=== PATIENT | female | born 1945 | race Caucasian/White ===

== ENCOUNTER 2017-11-20 15:33 | Emergency (ER) | payer MEDICARE, BC ==
--- NOTE | 2017-11-20 17:51 | UC ---
Respiratory Complaint HPI - HPI Summary HPI Summary: DEEP PRODUCTIVE COUGH X 3 DAYS. COMPLETED A 10 DAY COURSE OF CIPRO FOR BRONCHITIS PER PULMONOLOGY 1 WEEK AGO. PT HAS H/O BRONCHIECTASIS. FELT BETTER FOR A FEW DAYS BUT NOW FEELS SX ARE WORSENING AGAIN. PT CALLED HER POPPED [employer]N OV[employer] ATTENDANT DR. LOPEZ BUT NO RESPONSE. - History of Current Complaint Chief Complaint: UCRespiratory Stated Complaint: CHEST CONGESTION Time Seen by Provider: 11/20/17 17:32 Hx Obtained From: Patient Onset/Duration: Gradual Onset, Lasting Days, Still Present Timing: Constant Severity Initially: Moderate Severity Currently: Moderate Pain Intensity: 3 Pain Scale Used: 0-10 Numeric Character: Cough: Productive Aggravating Factors: Deep Breaths Alleviating Factors: Bronchodilator Associated Signs And Symptoms: Positive: Dyspnea, Pleuritic Chest Pain, Wheezing , URI. Negative: Fever - Allergies/Home Medications Allergies/Adverse Reactions: Allergies Allergy/AdvReac Type Severity Reaction Status Date / Time Penicillins Allergy Unknown Verified 11/20/17 15:53 Reaction Details Tetracycline Allergy Unknown Verified 11/20/17 15:53 Reaction Details Home Medications: Home Medications Apremilast (NF) [Otezla (NF)] 30 mg PO BID 11/20/17 [History Confirmed 11/20/17] Atorvastatin* [Lipitor 20 MG*] 20 mg PO 1700 11/20/17 [History Confirmed ] Escitalopram (NF) [Lexapro 20 mg (NF)] 30 mg PO DAILY 11/20/17 [History Confirmed 11/20/17] Fluticasone-Salmeterol 500-50* [Advair Diskus 500-50*] 1 puff INH BID 11/20/17 [ History Confirmed 11/20/17] Montelukast Sodium TAB* [Singulair 10 MG TAB*] 10 mg PO DAILY 11/20/17 [History Confirmed 11/20/17] Ondansetron TAB* [Zofran 4 MG Tab*] 4 mg PO Q6H PRN 11/20/17 [History Confirmed 11/20/17] Pantoprazole TAB (NF) [Protonix TAB (NF)] 40 mg PO DAILY 11/20/17 [History Confirmed 11/20/17] Potassium Chlor TAB* [Potassium Chlor TAB 20 MEQ*] 20 meq PO BID 11/20/17 [ History Confirmed 11/20/17] Primidone TAB(*) [Mysoline TAB(*)] 100 mg PO BID 11/20/17 [History Confirmed ] amLODIPine TAB* [Norvasc 5 mg TAB*] 5 mg PO DAILY 11/20/17 [History Confirmed ] clonazePAM TAB(*) [Klonopin TAB(*)] 0.5 mg PO TID PRN 11/20/17 [History Confirmed 11/20/17] PMH/Surg Hx/FS Hx/Imm Hx Cardiovascular History: Hypertension Respiratory History: COPD - BRONCHIECTASIS, Asthma - Surgical History Surgical History: Yes Surgery Procedure, Year, and Place: RT ROTATOR CUFF REPAIR 2001 OR 2002, LT HUMERUS RODDING 2001 OR 2002, HYSTERECTOMY 1985, 1985 COLON RESECTION FROM ENDOMETRIOSIS,cataract, bilateral eyelid liposuction, breast reduction 2013 - Family History Known Family History: Positive: Hypertension, Respiratory Disease - Social History Alcohol Use: Occasionally Substance Use Type: None Smoking Status (MU): Never Smoked Tobacco - Immunization History Most Recent Influenza Vaccination: fall 2014 Most Recent Tetanus Shot: up to date Most Recent Pneumonia Vaccination: up to date Review of Systems Constitutional: Negative Respiratory: Shortness Of Breath, Cough, Other - PLEURITIC PAIN Cardiovascular: Negative Gastrointestinal: Negative All Other Systems Reviewed And Are Negative: Yes Physical Exam Triage Information Reviewed: Yes Appearance: Well-Appearing, No Pain Distress, Well-Nourished Vital Signs: Initial Vital Signs Temp 97.2 F 11/20/17 15:54 Pulse 92 11/20/17 15:54 Resp 20 11/20/17 15:54 BP 137/62 11/20/17 15:54 Pulse Ox 96 11/20/17 15:54 Vital Signs Reviewed: Yes Eyes: Positive: Conjunctiva Clear ENT: Positive: Hearing grossly normal, Pharynx normal, TMs normal Neck: Positive: Supple, Nontender, No Lymphadenopathy Respiratory: Positive: No respiratory distress, No accessory muscle use, Decreased breath sounds, Wheezing - MILD INTERMITTENT DIFFUSE WHEEZE Cardiovascular Exam: Normal Abdomen Description: Positive: Soft Musculoskeletal: Positive: No Edema Neurological: Positive: Alert Psychological: Positive: Age Appropriate Behavior Skin: Negative: rashes UC Diagnostic Evaluation - Laboratory O2 Sat by Pulse Oximetry: 96 - Radiology Xray Interpretation: No Acute Changes - CXR Radiology Interpretation Completed By: Radiologist Respiratory Course/Dx - Differential Dx/Diagnosis Provider Diagnoses: ACUTE BRONCHITIS Discharge - Discharge Plan Condition: Stable Disposition: HOME Prescriptions: Cefdinir [Cefdinir 300 MG CAP] 300 mg PO BID #20 cap predniSONE TAB* [Deltasone TAB*] 50 mg PO DAILY #3 tab Patient Education Materials: Acute Bronchitis (ED), Bronchiectasis (ED) Referrals: Maranda Powell MD [Primary Care Provider] - If Needed Additional Instructions: CALL DR. LOPEZ TOMORROW TO ADVISE OF YOUR RECURRENT SYMPTOMS AND TREATMENT. GO TO THE ER WITHOUT FAIL IF YOU DEVELOP SHORTNESS OF BREATH, FEVER, WORSENING COUGH, PAIN OR ANY OTHER CONCERNING SYMPTOMS.
--- NOTE | 2017-11-20 18:17 | RAD ---
INDICATION: Cough. Pleuritic chest pain. COMPARISON: October 14, 2017 TECHNIQUE: PA and lateral dual-energy views were obtained. FINDINGS: Bones/Soft Tissues: There are no acute bony findings. Cardiomediastinal: The cardiomediastinal silhouette is normal. Lungs: There are no infiltrates. Pleura: There are no pleural effusions. Other: None IMPRESSION: NO ACTIVE DISEASE
[2017-11-20 18:48] VITALS: BP 144/90
== END 2017-11-20 18:49 | disposition home or self-care (01) ==
LOC: UCEAST 15:33
DX: J20.9 Acute bronchitis, unspecified (principal); I10 Essential (primary) hypertension; J44.9 Chronic obstructive pulmonary disease, unspecified; Z88.3 Allergy status to other anti-infective agents; Z88.0 Allergy status to penicillin
CPT/HCPCS: 71020; 99212; G0463

== ENCOUNTER 2018-01-10 14:50 | Emergency (ER) | payer MEDICARE, BC ==
[2018-01-10 18:10] VITALS: BP 121/58
--- NOTE | 2018-01-10 18:54 | UC ---
Respiratory Complaint HPI - HPI Summary HPI Summary: 72 yo WF c/o productive cough with yellow sputum and pleuritic CP x 4 days with 5 PNAs in the past, last one last year, which all started out with bronchitis - History of Current Complaint Chief Complaint: UCRespiratory Stated Complaint: COUGH Time Seen by Provider: 01/10/18 18:15 Onset/Duration: Gradual Onset Severity Initially: Moderate Pain Intensity: 0 - Allergies/Home Medications Allergies/Adverse Reactions: Allergies Allergy/AdvReac Type Severity Reaction Status Date / Time MS Penicillins [Penicillins] Allergy Unknown Verified 11/20/17 15:53 Reaction Details MS Tetracycline Allergy Unknown Verified 11/20/17 15:53 [Tetracycline] Reaction Details PMH/Surg Hx/FS Hx/Imm Hx - Surgical History Surgical History: Yes Surgery Procedure, Year, and Place: RT ROTATOR CUFF REPAIR 2001 OR 2002, LT HUMERUS RODDING 2001 OR 2002, HYSTERECTOMY 1985, 1985 COLON RESECTION FROM ENDOMETRIOSIS,cataract, bilateral eyelid liposuction, breast reduction 2013 - Family History Known Family History: Positive: Hypertension, Respiratory Disease - Social History Alcohol Use: Occasionally Substance Use Type: None Smoking Status (MU): Never Smoked Tobacco - Immunization History Most Recent Influenza Vaccination: fall 2014 Most Recent Tetanus Shot: up to date Most Recent Pneumonia Vaccination: up to date Review of Systems Constitutional: Negative Skin: Negative Eyes: Negative ENT: Negative Respiratory: Cough, Other - pleuritic CP, yellow sputum Cardiovascular: Negative Gastrointestinal: Negative Genitourinary: Negative Motor: Negative Neurovascular: Negative Musculoskeletal: Negative Neurological: Negative Psychological: Negative Is Patient Immunocompromised?: No All Other Systems Reviewed And Are Negative: Yes Physical Exam Triage Information Reviewed: Yes Vital Signs: Initial Vital Signs Temp 37.1 C 01/10/18 15:06 Pulse 81 01/10/18 15:06 Resp 18 01/10/18 15:06 BP 132/79 01/10/18 15:06 Pulse Ox 98 01/10/18 15:06 Eye Exam: Normal ENT: Positive: Pharynx normal Dental Exam: Normal Neck exam: Normal Respiratory: Positive: Rhonchi Cardiovascular Exam: Normal Abdominal Exam: Normal Musculoskeletal Exam: Normal Neurological Exam: Normal Psychological Exam: Normal Skin Exam: Normal UC Diagnostic Evaluation - Laboratory O2 Sat by Pulse Oximetry: 97 Respiratory Course/Dx - Course Course Of Treatment: Pt has h/o multiple PNA and with h/o asthma will prescribe abx to prevent recurrent PNA but advised to wait to take abx for the body to have a chance to get over viral bronchitis. Pt has h/o HTN and is on antiHTN meds - Differential Dx/Diagnosis Provider Diagnoses: Bronchitis Discharge - Discharge Plan Condition: Stable Disposition: HOME Prescriptions: Azithromycin TAB* [Zithromax TAB (Z-AR) 250 mg #6 tabs] 2 tab PO .TODAY, THEN 1 DAILY #1 ar Patient Education Materials: Acute Bronchitis (ED) Referrals: Maranda Powell MD [Primary Care Provider] - Additional Instructions: as tolerated, Please WAIT to take the antibiotic for 3 days or if symptoms worsen
--- NOTE | 2018-01-10 19:00 | UC ---
Respiratory Complaint HPI - HPI Summary HPI Summary: 72 yo WF h/o asthma c/o productive cough with yellow sputum and pleuritic CP associated with low grade fevers x 4 days with 5 PNAs in the past, last one last year, which all started out with bronchitis. - History of Current Complaint Chief Complaint: UCRespiratory Stated Complaint: COUGH Time Seen by Provider: 01/10/18 18:15 Pain Intensity: 0 - Allergies/Home Medications Allergies/Adverse Reactions: Allergies Allergy/AdvReac Type Severity Reaction Status Date / Time MS Penicillins [Penicillins] Allergy Unknown Verified 11/20/17 15:53 Reaction Details MS Tetracycline Allergy Unknown Verified 11/20/17 15:53 [Tetracycline] Reaction Details PMH/Surg Hx/FS Hx/Imm Hx - Additional Past Medical History Additional PMH: Multiple pneumonias Previously Healthy: Yes Cardiovascular History: Hypertension Respiratory History: Asthma Other Respiratory History: Multiple PNAs Psychological History: Depression - Surgical History Surgical History: Yes Surgery Procedure, Year, and Place: RT ROTATOR CUFF REPAIR 2001 OR 2002, LT HUMERUS RODDING 2001 OR 2002, HYSTERECTOMY 1985, 1985 COLON RESECTION FROM ENDOMETRIOSIS,cataract, bilateral eyelid liposuction, breast reduction 2013 - Family History Known Family History: Positive: Hypertension, Respiratory Disease - Social History Alcohol Use: Occasionally Substance Use Type: None Smoking Status (MU): Never Smoked Tobacco - Immunization History Most Recent Influenza Vaccination: fall 2014 Most Recent Tetanus Shot: up to date Most Recent Pneumonia Vaccination: up to date Review of Systems Constitutional: Fever Skin: Negative Eyes: Negative ENT: Negative Respiratory: Cough Cardiovascular: Negative Gastrointestinal: Negative Genitourinary: Negative Motor: Negative Neurovascular: Negative Musculoskeletal: Negative Neurological: Negative Psychological: Negative All Other Systems Reviewed And Are Negative: Yes Physical Exam Triage Information Reviewed: Yes Appearance: No Pain Distress Vital Signs: Initial Vital Signs Temp 37.1 C 01/10/18 15:06 Pulse 81 01/10/18 15:06 Resp 18 01/10/18 15:06 BP 132/79 01/10/18 15:06 Pulse Ox 98 01/10/18 15:06 Eye Exam: Normal ENT Exam: Normal Dental Exam: Normal Neck exam: Normal Neck: Positive: 1 Respiratory: Positive: Rhonchi, Expiration, Inspiration. Negative: Accessory muscle use, Stridor, Wheezing Cardiovascular Exam: Normal Abdominal Exam: Normal Musculoskeletal Exam: Normal Neurological Exam: Normal Psychological Exam: Normal Skin Exam: Normal UC Diagnostic Evaluation - Laboratory O2 Sat by Pulse Oximetry: 97 Respiratory Course/Dx - Course Course Of Treatment: Pt has h/o multiple PNA and with h/o asthma will prescribe abx to prevent recurrent PNA but advised to wait to take abx for the body to have a chance to get over viral bronchitis - Differential Dx/Diagnosis Provider Diagnoses: Bronchitis Discharge - Discharge Plan Condition: Stable Disposition: HOME Prescriptions: Azithromycin TAB* [Zithromax TAB (Z-RA) 250 mg #6 tabs] 2 tab PO .TODAY, THEN 1 DAILY #1 ar Patient Education Materials: Acute Bronchitis (ED) Referrals: Maranda Powell MD [Primary Care Provider] - Additional Instructions: as tolerated, Please WAIT to take the antibiotic for 3 days or if symptoms worsen
== END 2018-01-10 19:00 | disposition home or self-care (01) ==
LOC: UCEAST 14:50
DX: J45.909 Unspecified asthma, uncomplicated (principal); I10 Essential (primary) hypertension; F32.9 Major depressive disorder, single episode, unspecified; Z90.710 Acquired absence of both cervix and uterus; Z88.1 Allergy status to other antibiotic agents; Z88.0 Allergy status to penicillin
CPT/HCPCS: 99212; G0463

== ENCOUNTER → 2018-08-13 00:21 | Emergency (ER) | payer MEDICARE, BC ==
[~2018-08-13 00:21] MED LIST: Levofloxacin TAB* 250 MG PO ONE
[2018-08-13 01:32] LABS: ABS Basophils 0.1 10^3/ul (0-0.2); ABS Eosinophils 0.2 10^3/ul (0-0.6); ABS Lymphocytes 2.2 10^3/ul (1.0-4.8); ABS Monocytes 0.6 10^3/ul (0-0.8); ABS Neutrophils 7.2 10^3/ul (1.5-7.7); ABS Nucleated RBC 0 10^3/ul; Eosinophil % 1.6 % (0-6); Hematocrit 40 % (35-47); Hemoglobin 13.6 g/dl (12.0-16.0); Lymphocyte % 21.9 % (25-47); Mean Corpuscular HGB Conc 34 g/dl (31-36); Mean Corpuscular Hemoglobin 28 pg (27-31); Mean Corpuscular Volume 84 fL (80-97); Mean Platelet Volume 7.6 um3 (7.4-10.4); Nucleated Red Blood Cells % 0; Platelet Count 308 10^3/ul (150-450); Red Cell Distribution Width 14 % (10.5-15); White Blood Count 10.2 10^3/ul (3.5-10.8)
[2018-08-13 01:51] LABS: EGFR Non-African American 69.1 (>60)
--- NOTE | 2018-08-13 02:13 | ED ---
Skin Complaint - HPI Summary HPI Summary: Patient complains of redness and warmth to anterior left huddleston starting tonight. Denies pain or swelling, trauma, fever, N/V, cough, sore throat, CP, SOB, N/V/ D, abdominal pain, change in urine, change in BM. Medical history as psoriasis. Nonsmoker. - History of Current Complaint Chief Complaint: EDExtremityLower Time Seen by Provider: 08/13/18 00:35 Stated Complaint: LT LEG PAIN Hx Obtained From: Patient Onset/Duration: Started Hours Ago Skin Exposure Onset/Duration: Hours Ago Timing: Constant Onset Severity: Moderate Current Severity: Moderate Pain Intensity: 4 Pain Scale Used: 0-10 Numeric Skin Location: Discrete, Leg Aggravating Symptom(s): Nothing Alleviating Symptom(s): Nothing Associated Signs & Symptoms: Negative - Additional Pertinent History Primary Care Physician: ERIC - Allergy/Home Medications Allergies/Adverse Reactions: Allergies Allergy/AdvReac Type Severity Reaction Status Date / Time Penicillins Allergy Unknown Verified 08/13/18 00:26 Reaction Details tetracycline Allergy Unknown Verified 08/13/18 00:26 Reaction Details PMH/Surg Hx/FS Hx/Imm Hx Endocrine/Hematology History: Denies: Hx Anticoagulant Therapy Cardiovascular History: Reports: Hx Hypercholesterolemia, Hx Hypertension, Other Cardiovascular Problems/Disorders - PNEUMONIA Denies: Hx Angina, Hx Pacemaker/ICD Respiratory History: Reports: Hx Asthma, Hx Chronic Obstructive Pulmonary Disease (COPD), Hx Pneumonia - recurrent, Other Respiratory Problems/Disorders - HX OF PNEUMONIA NUMEROUS TIMES, NONE IN 10+ YEARS AGO GI History: Reports: Hx Gastroesophageal Reflux Disease History: Reports: Other Problems/Disorders - HISTORY OF UTI'S Musculoskeletal History: Reports: Hx Arthritis - SPINE, Hx Bursitis Sensory History: Reports: Hx Contacts or Glasses - reading Denies: Hx Hearing Aid Opthamlomology History: Reports: Hx Contacts or Glasses - reading Neurological History: Reports: Hx Headaches, Hx Migraine, 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 Psychiatric History: Reports: Hx Anxiety, Hx Depression Denies: Hx Panic Disorder - Cancer History Cancer Type, Location and Year: SKIN CANCER Hx Chemotherapy: No Hx Radiation Therapy: No - Surgical History Surgery Procedure, Year, and Place: RT ROTATOR CUFF REPAIR 2001 OR 2002, LT HUMERUS RODDING 2001 OR 2002, HYSTERECTOMY 1985, 1985 COLON RESECTION FROM ENDOMETRIOSIS,cataract, bilateral eyelid liposuction, breast reduction 2014 Hx Anesthesia Reactions: Yes - N/V Infectious Disease History: No Infectious Disease History: Denies: Hx Clostridium Difficile, Hx Hepatitis, Hx Human Immunodeficiency Virus (HIV), Hx of Known/Suspected MRSA, Hx Shingles, Hx Tuberculosis, Hx Known/ Suspected VRE, Hx Known/Suspected VRSA, History Other Infectious Disease, Traveled Outside the [place] in Last 30 Days - Family History Known Family History: Positive: Hypertension, Respiratory Disease - Social History Alcohol Use: Occasionally Substance Use Type: Reports: None Hx Tobacco Use: No Smoking Status (MU): Never Smoked Tobacco Review of Systems Constitutional: Negative Eyes: Negative ENT: Negative Cardiovascular: Negative Respiratory: Negative Gastrointestinal: Negative Genitourinary: Negative Musculoskeletal: Negative Skin: Other Neurological: Negative Psychological: Normal All Other Systems Reviewed And Are Negative: Yes Physical Exam - Summary Physical Exam Summary: Warmth and redness to anterior left huddl[place]. No obvious wound or trauma. Calf soft nontender. PMS intact distally. Triage Information Reviewed: Yes Vital Signs On Initial Exam: Initial Vitals Temp Pulse Resp BP Pulse Ox 97.4 F 87 16 167/87 97 08/13/18 00:22 08/13/18 00:22 08/13/18 00:22 08/13/18 00:22 08/13/18 00:22 Vital Signs Reviewed: Yes Appearance: Positive: Well-Appearing Skin: Positive: Warm Head/Face: Positive: Normal Head/Face Inspection Eyes: Positive: Normal Neck: Positive: Supple Respiratory/Lung Sounds: Positive: Clear to Auscultation Cardiovascular: Positive: Normal Abdomen Description: Positive: Nontender Musculoskeletal: Positive: Normal Neurological: Positive: Normal Psychiatric: Positive: Normal AVPU Assessment: Alert - Odin Coma Scale Best Eye Response: 4 - Spontaneous Best Motor Response: 6 - Obeys Commands Best Verbal Response: 5 - Oriented Coma Scale Total: 15 Diagnostics - Vital Signs Vital Signs Temp Pulse Resp BP Pulse Ox 08/13/18 00:22 97.4 F 87 16 167/87 97 - Laboratory Lab Results: Lab Results 08/13/18 08/13/18 Range/Units 01:10 01:10 WBC 10.2 (3.5-10.8) 10^3/ul RBC 4.80 (4.00-5.40) 10^6/ul Hgb 13.6 (12.0-16.0) g/dl Hct 40 (35-47) % MCV 84 (80-97) fL MCH 28 (27-31) pg MCHC 34 (31-36) g/dl RDW 14 (10.5-15) % Plt Count 308 (150-450) 10^3/ul MPV 7.6 (7.4-10.4) um3 Neut % (Auto) 70.4 (38-83) % Lymph % (Auto) 21.9 L (25-47) % [place] % (Auto) 5.4 (0-7) % Eos % (Auto) 1.6 (0-6) % Baso % (Auto) 0.7 (0-2) % Absolute Neuts (auto) 7.2 (1.5-7.7) 10^3/ul Absolute Lymphs (auto) 2.2 (1.0-4.8) 10^3/ul Absolute Monos (auto) 0.6 (0-0.8) 10^3/ul Absolute Eos (auto) 0.2 (0-0.6) 10^3/ul Absolute Basos (auto) 0.1 (0-0.2) 10^3/ul Absolute Nucleated RBC 0 10^3/ul Nucleated RBC % 0 Sodium 135 (135-145) mmol/L Potassium 2.9 L (3.5-5.0) mmol/L Chloride 99 L (101-111) mmol/L Carbon Dioxide 27 (22-32) mmol/L Anion Gap 9 (2-11) mmol/L BUN 11 (6-24) mg/dL Creatinine 0.81 (0.51-0.95) mg/dL Est GFR ( Amer) 83.6 (>60) Est GFR (Non-Af Amer) 69.1 (>60) BUN/Creatinine Ratio 13.6 (8-20) Glucose 111 H (70-100) mg/dL Calcium 9.2 (8.6-10.3) mg/dL Total Bilirubin 0.50 (0.2-1.0) mg/dL AST 12 L (13-39) U/L ALT 13 (7-52) U/L Alkaline Phosphatase 76 (34-104) U/L C-Reactive Protein 2.55 (<8.01) mg/L Total Protein 6.7 (6.4-8.9) g/dL Albumin 4.1 (3.2-5.2) g/dL Globulin 2.6 (2-4) g/dL Albumin/Globulin Ratio 1.6 (1-3) Result Diagrams: 08/13/18 01:10 08/13/18 01:10 Lab Statement: Any lab studies that have been ordered have been reviewed, and results considered in the medical decision making process. Course/Dx - Course Course Of Treatment: Patient complains of redness and warmth to anterior left huddl[place] starting tonight. Denies pain or swelling, trauma, fever, N/V, cough, sore throat, CP, SOB, N/V/D, abdominal pain, change in urine, change in BM. Medical history as psoriasis. Nonsmoker. Physical exam:Warmth and redness to anterior left huddl[place]. No obvious wound or trauma. Calf soft nontender. PMS intact distally. Vital signs unremarkable. Labs unremarkable. Patient started here on Levaquin 750 mg by mouth. Rx for Levaquin 750 mg by mouth daily 7 days. - Diagnoses Provider Diagnoses: Cellulitis Discharge - Sign-Out/Discharge Documenting (check all that apply): Patient Departure - Discharge Plan Condition: Stable Disposition: HOME Prescriptions: Levofloxacin TAB* [Levaquin TAB*] 750 mg PO DAILY 7 Days #7 tab Patient Education Materials: Cellulitis (ED) Referrals: Maranda Powell MD [Primary Care Provider] - Additional Instructions: Take antibiotics as directed. Return to the ED for any new or worsening symptoms - Billing Disposition and Condition Condition: STABLE Disposition: Home
[2018-08-13 02:32] VITALS: BP 154/87
== END | disposition home or self-care (01) ==
LOC: ED 00:21
DX: L03.90 Cellulitis, unspecified (principal); Z86.79 Personal history of other diseases of the circulatory system
CPT/HCPCS: 36415; 80053; 85025; 86140; 87040; 99282; A9270-GY

== ENCOUNTER 2019-04-29 14:53 | Emergency (ER) | payer MEDICARE, BC ==
--- OUTSIDE RECORDS SUMMARY | 2019-04-29 15:37 | XMS REPORT | Continuity of Care Document ---
:1945 External Reference #:[id number] Author Name Sylwia Marylou Care Team Providers Name Role Phone Maranda Powell MD Primary Care Physician Unavailable Payers Date Identification Numbers Payment Provider Subscriber Effective: 2012 Policy Number: [id number] Medicare Samanta Velásquez PayID: [id number] [address] [place] [address] Effective: 2011 Policy Number: [id number] BS [employer]ets Samanta Velásquez PayID: [id number] [address] [address] [place] [address] Problems Active Problems Provider Date Essential hypertension Elyse Sagastume N.P. 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 Onset: 04/04/2015 Migraine Marta Kim M.D. Onset: 04/04/2015 Disturbance in sleep behavior Teresa Cano MD Onset: 01/09/2016 Obstructive sleep apnea syndrome Teresa Cano MD Onset: 02/27/2016 Obesity Teresa Cano MD Onset: 02/27/2016 Family History Date Family Member(s) Observation Comments : (age 64 Father due to MS Years) Father MS Father : (age 79 Mother due to Vascular Years) Disease Mother Emphysema Mother Pad Mother Brain tumorsx2 Mother , age 79 Siblings 1 1 Brother - Prostate Cancer, Bronchitis Age 79 First Brother 71 as of 05/24/2011 First Brother Cancer, Prostate First Brother Hypertension : (age 19 Second Brother due to Homicide Years) Social History Type Date Description Comments Sex Unknown Marital Status Single Lives With Alone 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 ETOH Use Rarely consumes 2 beers per month alcohol Tobacco Use Start: Unknown Patient has never smoked Recreational Drug Use Denies Drug Use Smoking Status Reviewed: 04/22/19 Patient has never smoked Exercise Type/Frequency Exercises regularly Exercise Type/Frequency Walks 3 times a week Allergies, Adverse Reactions, Alerts Active Allergies Reaction Severity Comments Date Cipro RASH 01/05/2010 Penicillin RASH 01/05/2010 Tetracycline 01/05/2010 Medications Active Medications SIG Qnty Indications Ordering Date Provider Ciprofloxacin HCL 1 tab daily for 7 7tabs J47.1 Teresa Cano, 04/22/2019 750mg days MD Tablets Prednisone 30mg daily for 1 42tabs J47.1 Teresa Cano, 04/22/2019 10mg Tablets week, 20mg daily MD for 1 week, 10 mg daily for 1 week Montelukast Sodium Take One Tablet By 90tabs J47.9 Teresa Cano, 2018 10mg Mouth Every Day MD Tablets Potassium Chloride Take One Tablet By 270tabs Elyse Sagastume, 12/06/2018 Maribel ER Mouth Three Times N.P. 20Meq Tablets A Day ER Amlodipine Besylate 1 by mouth every 90tabs Elyse Sagastume, 10/15/2018 day N.P. 10mg Tablets Losartan Potassium 1 by mouth every 90tabs Elyse Tanika, 08/18/2018 day N.P. 100mg Tablets Ondansetron HCL one by mouth every 30tabs R11.0 Elyse Sagastume, 08/14/2018 4mg 8 hours as needed N.P. Tablets for nausea Albuterol Sulfate 1 unit, nebl, 225ml Teresa Cano, 10/14/2017 every 6 hours, as MD 0.63mg/3ML Nebulizer needed Escitalopram Oxalate take one tablet by 30tabs F32.89 Elyse Sagastume, 04/18 mouth every day N.P. 20mg Tablets Combivent Respimat Inhale One puff By 4unsal Low 05/23/2016 Mouth Four Times A Cotton, M.D. 20-100mcg/Act Aerosol Day as Needed Flutter use as instructed 1unsal J47.9 Teresa Cano, 12/07/2015 Device twice a day Clonazepam Take 1 Or 1+1/2 45tabs Elyse Sagastume, 12/01/2015 0.5mg Tablet By Mouth AT N.P. Tablets Bedtime Maximum Daily Dose=1 & 1/2 Tablets Advair Diskus 1 puff puff twice 60units J47.9 Elyse Sagastume, 12/27/2014 a day N.P. 500-50mcg/Dose Aerosol Atorvastatin Calcium Take One Tablet By 90tabs Z00.01 Elyse Sagastume, 11/10 Mouth Every Day N.P. 20mg Tablets Klor-Con M20 Take One Tablet By 270tabs Elyse Sagastume, 03/11/2013 20Meq Mouth Three Times N.P. Tablets ER A Day Primidone take two tablets 360tabs Marta Kim, 01/06/2013 50mg Tablets by mouth twice a M.D. day Pantoprazole Sodium take one tablet by 90tabs Elyse Sagastume, 04/30/2011 mouth every day N.P. 40mg Tablets Spironolactone Take One Tablet By 90tabs Elyse Sagastume, 04/21/2010 25mg Mouth Every Day N.P. Tablets Amonium Lactate Unknown Clobetasol Propionate Apply Topically Unknown Two Times A Day To 0.05% Ointment Lower Legs For 3 Weeks Otezla 1 by mouth twice a [facility], 30mg Tablets day MD Gina Calcium 600 1 po qd 60tabs Unknown 600mg Tablets Multivitamins 1 capsule jenifer;y 30caps Unknown Capsules Fish Oil 1 po qd 90caps Unknown 1200mg Capsules Vit D 1 tab po daily Unknown 2000Iu Estrace 1 application two 42.500gm Unknown 0.1mg/GM Cream times weekly History Medications Levofloxacin 1 by mouth every 14tabs J47.1 Teresa Cano, 10/21/2018 - 750mg day MD 12/24/2018 Tablets Prednisone 4 tabs day#1, 3 21units J47.1 Teresa Cano, 10/21/2018 - 10mg (21) tabs day#2, 2 MD 12/24/2018 TBPK tabs day#3, 1 tab for 7 days Prednisone 4 tabs by mouth 20tabs Elyse Sagastume, 10/15/2018 - 10mg Tablets days 1-2; 3 tabs N.P. Unknown by mouth on days 3-4, 2 tabs by mouth on days 5-6, 1 tab by mouth days 7-8 Levofloxacin 1 by mouth every 5tabs R05 Elyse Sagastume, 10/15/2018 - 750mg day for 5 days N.P. 10/20/2018 Tablets Sulfamethoxazole/Trim one by mouth 20tabs L03.116 Elyse Sagastume, 2017 - ethoprim DS twice a day for N.P. 10/02/2018 800-160mg 10 days Tablets Levofloxacin One po daily for 10tabs J47.1 Elyse Sagastume, 03/05/2018 - 750mg 10 days. N.P. 03/15/2018 Tablets Levofloxacin 1 by mouth every 5tabs R05 Maranda 01/22/2018 - 750mg day for 5 days Onel Powell 01/27/2018 Tablets Benzonatate take 1 capsule by 30caps Elyse Sagastume, 11/21/2017 - 200mg mouth three times N.P. 12/24/2018 Capsules a day as needed for cough Prednisone 4 tabs by mouth 20tabs Maranda 11/21/2017 - 10mg Tablets days 1-2; 3 tabs Onel Powell 11/28/2017 by mouth on days 3-4, 2 tabs by mouth on days 5-6, 1 tab by mouth days 7-8 Prednisone 30mg daily for 1 30tabs J47.1 Elyse Sagastume, 10/14/2017 - 10mg Tablets week, 20mg daily N.P. 10/28/2017 for 1 week, 10 mg daily for 1 week Levofloxacin 1 by mouth for 10 10tabs J47.1 Teresa Cano, 10/14/2017 - 750mg days 10/24/2017 Tablets Amlodipine Besylate take one tablet 90tabs Elyse Sagastume, 12/12/2016 - 5mg by mouth every N.P. 10/15/2018 Tablets day Levaquin 1 by mouth daily 10tabs J20.9 Elyse Sagastume, 08/22/2016 - 500mg Tablets for 10 days N.P. 09/01/2016 Medrol 6 by mouth day 1 21units J20.9 Elyse Sagastume, 08/22/2016 - 4mg TBPK 5 by mouth day 2 N.P. 08/28/2016 4 by mouth day 3 3 by mouth day 4 2 by mouth day 5 1 by mouth day 6 Fluticasone 2 sprays each 16units J20.9 Elyse Sagastume, 08/22/2016 - Propionate nostril daily as N.P. 09/05/2016 50mcg/Act needed Suspension Levofloxacin one by mouth 10tabs J20.9 Surjit Mead NP 06/15/2016 - 500mg daily for 10 days 06/25/2016 Tablets Cheratussin ac 2 teaspoons by 120ml J20.9 Surjit Mead NP 05/23/2016 - mouth every 4 05/30/2016 100-10mg/5ML Syrup hours as needed Azithromycin 2 tabs by mouth 6tabs J20.9 Surjti Mead NP 05/23/2016 - 250mg every day x1 day, 05/30/2016 Tablets 1 tab by mouth every day x 4 days Combivent Respimat 1 puffs 4-6 times 30units Surjit Mead NP 05/23/2016 - daily as needed 05/23/2016 14.7-100 Aerosol Xanax one by mouth up 20tabs F41.9 Elyse Sagastume, 05/07/2016 - 0.25mg Tablets to two times N.P. 12/24/2018 daily as needed for anxiety Amlodipine Besylate 1 by mouth every 30tabs Elyse Sagastume, 04/10/2016 - day N.P. 12/12/2016 10mg Tablets Azithromycin two tabs day one, 6tabs J20.9 Elyse Varn, 04/04/2016 - 250mg one daily till N.P. 04/14/2016 Tablets gone Prednisone 4 tablets by 43tabs J20.9 Elyse Varn, 04/04/2016 - 10mg Tablets mouth for 4 days N.P. 04/20/2016 3 tablets by mouth for 4 days 2 tablets by mouth for 4 days 1 tablet by mouth for 4 days Cheratussin ac 2 teaspoons by 120ml J20.9 Elyse Varn, 04/04/2016 - mouth every 4 N.P. 04/18/2016 100-10mg/5ML Syrup hours as needed Amlodipine Besylate 1 by mouth every 30tabs I10 Elyse Sagastume, 04/04/2016 - day N.P. 04/10/2016 10mg Tablets Cyclobenzaprine HCL take one tablet 90tabs Elyse Sagastume, 01/02/2016 - by mouth every 8 N.P. 12/24/2018 10mg Tablets hours as needed for muscle spasms Singulair Take One Tablet 90tabs J47.9 Teresa Rachael, 12/07/2015 - 10mg Tablets By Mouth Every MD 12/29/2018 Day Singulair 1 tab by mouth 90tabs 477.2 Daniel Peñaloza M.D. 04/28/2015 - 10mg Tablets every day every 12/07/2015 night Tramadol HCL 1 tablet three to 30tabs Maranda 03/31/2015 - 50mg four times daily Onel Powell 12/14/2015 Tablets as needed Escitalopram Oxalate take 1 tablets by 45tabs Maranda 11/10/2014 - mouth daily Onel Powell 03/17/2017 20mg Tablets Nystatin 4-6 milliliters 250ml 112.0 Surjit Mead NP 10/06/2014 - 360884Emep/ML q6 hours swish 10/13/2014 Suspension and swallow as needed for thrush for 10 days. Levaquin 1 by mouth every 10tabs Elyse Sagastume, 09/02/2014 - 500mg Tablets day x 10 days (Pt N.P. 09/07/2014 states she is almost done with them. 09/01/14) Prednisone 5 mg as directed 40tabs 494.1 Vicenta Cui, 09/02/2014 - 10mg Tablets M.D., FACP 09/07/2014 Levaquin 1 by mouth daily 10tabs 494.1 Elyse Sagastume, 08/23/2014 - 500mg Tablets for 10 days N.P. 08/28/2014 Clonazepam 1 by mouth twice 60tabs Maradna 08/23/2014 - 1mg Tablets a day Onel Powell 12/01/2015 Depakote take one tablet 90tabs Marta Kim, 08/12/2014 - 500mg Tablets by mouth at M.D. 04/21/2018 DR bedtime Metaxalone take 1 tablet 3 30tabs Elyse Tanika, 05/26/2014 - 800mg times a day as N.P. 06/25/2014 Tablets needed Levaquin one by mouth 5tabs 494.0 Vicenta Cui, 04/28/2014 - 250mg Tablets daily for 5 days M.D., FACP 05/03/2014 Ergocalciferol 1 cap by mouth 8caps 268.9 Vicenta Cui, 01/12/2014 - every week M.D., FACP 02/18/2014 53139Qqyx Capsules Levaquin one by mouth 5tabs 494.1 Vicenta Cui, 11/10/2013 - 250mg Tablets daily for 5 days M.D., FACP 01/18/2014 Azithromycin every other day 45tabs 494.1 Elyse Tanika, 08/13/2013 - 250mg N.P. 09/07/2014 Tablets Levofloxacin po qd 14tabs 494.1 Zakia Lindsey, 07/31/2013 - 750mg M.D. 08/13/2013 Tablets Levofloxacin po qd 7tabs 494.1 Sheldon Gallegos 07/21/2013 - 750mg Onel Constantino,FACP 07/31/2013 Tablets Cheratussin ac 10 ml po qid prn 200ml 494.1 Zakia Lindsey, 07/21/2013 - M.DStephany 02/18/2014 100-10mg/5ML Syrup Clarithromycin 1 po bid for 30tabs Sheldon Gallegos 07/21/2013 - 500mg 2weeks/month Onel Constantino,FACP 08/13/2013 Tablets Amlodipine Besylate take one tablet 90tabs I10 Elyse Tanika, 06/23/2013 - 5mg by mouth every N.P. 04/04/2016 Tablets day Folic Acid take one tablet 90tabs Vicenta Cui, 03/23/2013 - 1mg Tablets by mouth every M.D., FACP 04/03/2015 day Amlodipine Besylate 1 po qd 90tabs 401.1 Vicenta Cui, 01/06/2013 - M.D., FACP 06/23/2013 2.5mg Tablets Depakote ER take 1 by mouth 90tabs Elyse Suarezcici, 12/18/2012 - 250mg every night at N.P. 08/12/2014 Tablets ER 24HR bedtime Mysoline take 2 po qpm 180tabs Marta Kim, 10/15/2012 - 50mg Tablets M.D. 03/11/2013 Nystatin 4 ml qid, swish 16oz Vicenta Cui, 08/15/2012 - 630578Mdnf/ML and swallow for M.D., FACP 11/05/2012 Suspension 14 days Triamcinolone apply bid until 30gm 782.1 Vicenta Cui, 05/14/2012 - Acetonide clear M.D., [facility] 10/02/2014 0.1% Cream Nystatin 4 ml qid, swish 16oz Vicenta Cui, 01/01/2012 - 690279Laqq/ML and swallow for M.D., [facility] 05/14/2012 Suspension 14 days Singulair 1 by mouth every 90tabs Maranda 12/31/2011 - 10mg Tablets day Cotton, M.D. 12/07/2015 Levaquin 1 po daily for 10 10tabs 466.0 Vicenta Cui, 12/31/2011 - 500mg Tablets days M.D., FACP 01/10/2012 Prednisone 5 mg as directed 40tabs 466.0 Vicenta Cui, 12/31/2011 - 10mg Tablets M.D., FACP 11/05/2012 Thera Cane Use as Directed 1units Vicenta Cui, 12/06/2011 - dx: Muscle Spasms M.D., FACP 01/06/2013 Fluconazole one by mouth 5tabs Vicenta Cui, 11/22/2011 - 150mg daily for 5 days M.D., FACP 12/31/2011 Tablets Folic Acid Take One Tablet 90tabs Vicenta Cui, 09/11/2011 - 1mg Tablets By Mouth Every M.D., FACP 11/05/2012 Day Hydrocodone/Acetamino 1-2 tabs by mouth 30tabs 728.85 Vicenta Cui, 2010 - phen every 6 hours as M.D., FACP 11/05/2012 5-325mg Tablets needed Sulfamethoxazole/Trim 1 by mouth bid 6tabs 788.1 Vicenta Cui, 07/26/2011 - ethoprim DS prn M.D., FACP 10/19/2013 800-160mg Tablets Phenazopyridine HCL 1 tab by mouth 10tabs 788.1 Vicenta Cui, 07/26/2011 - three times a day M.D., FACP 11/05/2012 200mg Tablets as needed Ergocalciferol 1 cap by mouth 8caps 269.2 Vicenta Cui, 07/25/2011 - every week M.D., FACP 11/05/2012 [id number] Capsules Tramadol Take 1 To 2 60tabs Vicenta Cui, 03/05/2011 - Hydrochloride/Acetami Tablets By Mouth M.D., FACP 01/06/2013 nophen Daily AT Bedtime 37.5-325mg as Needed Tablets Losartan Take One Tablet 90tabs Elyse Tanika, 08/29/2010 - Potassium/Hydrochloro By Mouth Every N.P. 08/18/2018 thiazide Day 100-25mg Tablets Advair Diskus 1 puff po bid Vicenta Cui, 06/22/2010 - M.D., FACP 04/15/2013 500-50mcg/Dose Aerosol Bactrim DS 1 qd prn 6tabs Vicenta Cui, 05/30/2010 - 800-160mg M.D., FACP 06/20/2010 Tablets Lipitor take one tablet 90tabs V70.0 Elyse Suarezcici, 04/21/2010 - 20mg Tablets by mouth once N.P. 11/10/2014 daily at bedtime Folate 1 Tab PO qd 90units Vicenta Cui, 04/21/2010 - 1mg M.D., FACP 11/05/2012 Protonix 1 po qd prn Vicenta Cui, 04/21/2010 - 40mg M.D., FACP 04/30/2011 Klor-Con 1 tab three times 270units Vicenta Cui, 04/21/2010 - 20Meq Packet a day M.D., FACP 03/11/2013 Hyzaar 1 Tab PO qd Vicenta Cui, 04/21/2010 - 100/25 M.D., FACP 08/29/2010 Aspir-81 1 po qd 30tabs Unknown - 81mg Tablets 10/19/2013 Triazolam one pill po hs Unknown - 0.25mg prn for sleep 07/21/2013 Tablets Montelukast Sodium 1 po qd 90tabs Unknown - 10mg 04/15/2013 Tablets Atorvastatin Calcium take 1 tablet at 90tabs Unknown - bedtime 07/21/2013 20mg Tablets Modafinil 1 po daily Unknown - 200mg Tablets 04/15/2013 Clobetasol Propionate apply twice daily 30gm Unknown - E for up to 2 10/15/2018 0.05% Cream weeks, stay off for 2 weeks then repeat prn Advair Diskus 1 puff by mouth 3units Elyse Varn, - twice a day N.P. 12/27/2014 500-50mcg/Dose Aerosol Cyclomyacin 1 tab bid 2 weeks Unknown - per month 07/21/2013 Clonazepam 2 by mouth at 60tabs Elyse Varn, - 0.5mg bedtime N.P. 08/23/2014 Tablets Sulfamethoxazole/Trim 1 po bid prn 90tabs Unknown - ethoprim 03/31/2015 Tablets Vitamin C 1 by mouth every Unknown - 500mg day 04/28/2014 Capsules Prednisone three tabs a day. 30tabs Unknown - 10mg Tablets Tappering off 10/02/2014 Cyclobenzaprine HCL take one tablet 90tabs Elyse Varn, - by mouth every 8 N.P. 12/14/2015 10mg Tablets hours as needed for muscle spasms Ondansetron 1 three times a Unknown - 4mg Tablets day as needed for 11/28/2017 Dispers nausea Azithromycin Unknown - 250mg 12/07/2015 Tablets Cefpodoxime Proxetil Unknown - 12/23/2015 200mg Tablets Cefdinir bid x 10 days Unknown - 300mg Capsules 12/01/2017 Prednisone 1 by mouth every Maranda - 50mg Tablets day x 3 days Onel Powell 11/28/2017 Azithromycin Unknown - 250mg 01/21/2018 Tablets Advair Diskus Unknown - 06/20/2010 500-50mcg/Dose Albuterol Sulfate Unknown - 06/20/2010 (2.5mg/3ML) 0.083% Alprazolam Unknown - 0.5mg 06/20/2010 Clarithromycin Unknown - 500mg 06/20/2010 Clobetasol Propionate Apply Daily Bucky Mcfarland JR Luis M Khalil MD 04/15/2013 0.05% Combivent 2 Puffs Three Unknown - 103-18mcg/Act Times Daily as 04/15/2013 Needed Divalproex Sodium Marta Kim, - 250mg 11/05/2012 Dovonex Apply Daily Leena, - 0.005% (states uses prn) MD Gina 11/28/2017 Lexapro 1.5 daily 45tabs Elyse Varcici, - 20mg Tablets N.P. 11/10/2014 Primidone 2 Tablets AT Marta Kim - 50mg Bedtime 11/05/2012 Singulair Unknown - 10mg 06/20/2010 Depakote ER 1-2 AT Bedtime Marta Kim - 250mg 11/05/2012 Prednisone 1 po qd Unknown - 5mg 08/22/2011 Concentrate Clarithromycin ER 1 tab po 2x per 10tabs Unknown - 500mg day for 2 wks 04/15/2013 Tablets ER 24HR every month Provigil 1 by mouth twice 60tabs Maranda - 100mg Tablets a day Onel Powell 12/23/2015 Fluconazole 1 tab po daily 5tabs Unknown - 100mg prn 07/21/2013 Tablets Calcium Unknown - 600mg 04/15/2013 Alprazolam 1 by mouth twice 60tabs Maranda - 0.5mg a day Onel Powell 04/04/2016 Tablets Hydroxyzine HCL 1 tab po tid prn 30tabs Unknown - 10mg 11/28/2017 Tablets Medications Administered in Office Medication SIG Qnty Indications Ordering Provider Date Depomedrol 80MG Vineet Kong M.D. 11/19/2013 Injection Immunizations CPT Code Status Date Vaccine Lot # [id number] Given 09/22/2018 Influenza Virus Vaccine, Quadrivalent, Split, [id number] Preservative Free Q2039 Given 12/12/2016 Flu Vaccine NOS 27744 Given 09/30/2015 Flu Vaccine Split Virus Preservative Free For [id number] Indiv 3Yr Older 35894 Given 11/10/2014 Pneumococcal Conjugate Vaccine 13 Valent For [id number] Intramuscular Use 35211 Given 10/06/2014 Flu Vaccine Split Virus Preservative Free For Indiv 3Yr Older 68087 Given 09/29/2013 Flu Vaccine Split Virus Preservative Free For [id number] Indiv 3Yr Older Q2037 Given 11/05/2012 Fluvirin Im 3Yrs And Older [id number] 79548 Given 08/22/2011 Influenza Virus 3Yrs & Over [id number] 34346 Given 10/06/2010 Pneumonia Vaccine 57051 Given 01/09/2010 Administration Swine Flu Shot 72524 Given 01/09/2010 Influenza Virus Vaccine, Pandemic Formulation 22781 Given 09/12/2009 Influenza Virus 3Yrs & Over 05181 Given 10/05/2008 Tdap - Tetanus/Diptheria/Acellular Pertussis 72967 Given 10/05/2008 Tdap - Tetanus/Diptheria/Acellular Pertussis 59784 Given 10/05/2008 Influenza Virus 3Yrs & Over 14338 Given 11/27/2007 Zoster (Zostavax) 65136 Given 11/27/2007 Zoster (Zostavax) 54295 Given 10/29/2006 Influenza Virus 3Yrs & Over 98895 Given 10/29/2006 Influenza Virus 3Yrs & Over Vital Signs Date Vital Result Comment 04/22/2019 10:16am Height 66.0 inches 5'6" Weight 194.00 lb Heart Rate 96 /min BP Systolic Sitting 140 mmHg Lue large cuff BP Diastolic Sitting 74 mmHg Lue large cuff Respiratory Rate 16 /min O2 % BldC Oximetry 98 % BMI (Body Mass Index) 31.3 kg/m2 12/24/2018 1:21pm Height 66.0 inches 5'6" Weight 198.00 lb BP Systolic 160 mmHg BP Diastolic 72 mmHg Pain Level 3 BMI (Body Mass Index) 32.0 kg/m2 10/29/2018 11:06am Height 66.5 inches 5'6.50" Weight 198.00 lb Heart Rate 95 /min BP Systolic 142 mmHg BP Diastolic 74 mmHg Body Temperature 97.6 F O2 % BldC Oximetry 97 % BMI (Body Mass Index) 31.5 kg/m2 10/21/2018 10:31am Height 66.5 inches 5'6.50" Weight 196.00 lb Heart Rate 80 /min BP Systolic Sitting 160 mmHg Lue regular cuff BP Diastolic Sitting 82 mmHg Lue regular cuff Respiratory Rate 20 /min O2 % BldC Oximetry 97 % on Ra BMI (Body Mass Index) 31.2 kg/m2 10/15/2018 10:53am Height 66.5 inches 5'6.50" Weight 197.00 lb Heart Rate 77 /min BP Systolic 157 mmHg BP Diastolic 84 mmHg Body Temperature 97.3 F O2 % BldC Oximetry 98 % BMI (Body Mass Index) 31.3 kg/m2 09/22/2018 3:43pm Height 66.5 inches 5'6.50" Weight 195.00 lb Heart Rate 91 /min BP Systolic 151 mmHg BP Diastolic 75 mmHg Body Temperature 98.3 F O2 % BldC Oximetry 97 % BMI (Body Mass Index) 31.0 kg/m2 08/14/2018 10:41am Height 66.5 inches 5'6.50" Weight 190.00 lb Heart Rate 81 /min BP Systolic 126 mmHg BP Diastolic 60 mmHg Body Temperature 97.7 F O2 % BldC Oximetry 97 % BMI (Body Mass Index) 30.2 kg/m2 04/25/2018 12:58pm Height 66.5 inches 5'6.50" Weight 190.25 lb Heart Rate 97 /min BP Systolic 130 mmHg BP Diastolic 60 mmHg Body Temperature 98.9 F O2 % BldC Oximetry 96 % BMI (Body Mass Index) 30.2 kg/m2 04/22/2018 1:16pm Height 66 inches 5'6" Weight 187.00 lb Heart Rate 84 /min BP Systolic Sitting 124 mmHg BP Diastolic Sitting 70 mmHg Respiratory Rate 14 /min O2 % BldC Oximetry 96 % BMI (Body Mass Index) 30.2 kg/m2 03/14/2018 2:20pm Height 66 inches 5'6" Weight 208.00 lb Heart Rate 84 /min BP Systolic Sitting 136 mmHg BP Diastolic Sitting 72 mmHg Respiratory Rate 18 /min BMI (Body Mass Index) 33.6 kg/m2 03/05/2018 3:35pm Weight 187.00 lb Heart Rate 97 /min BP Systolic Sitting 138 mmHg BP Diastolic Sitting 88 mmHg Body Temperature 99.3 F O2 % BldC Oximetry 98 % 01/22/2018 2:09pm Height 66 inches 5'6" Weight 187.50 lb Heart Rate 88 /min BP Systolic 138 mmHg BP Diastolic 64 mmHg Body Temperature 98.7 F O2 % BldC Oximetry 98 % BMI (Body Mass Index) 30.3 kg/m2 11/28/2017 10:31am Weight 188.00 lb Heart Rate 106 /min BP Systolic 118 mmHg BP Diastolic 74 mmHg Body Temperature 97.8 F O2 % BldC Oximetry 96 % 10/28/2017 1:58pm Height 66.5 inches 5'6.50" Weight 189.50 lb no shoes Heart Rate 80 /min BP Systolic Sitting 138 mmHg Lue reg cuff BP Diastolic Sitting 72 mmHg Lue reg cuff Respiratory Rate 16 /min O2 % BldC Oximetry 97 % On Ra BMI (Body Mass Index) 30.1 kg/m2 10/21/2017 12:10pm Height 66.5 inches 5'6.50" Weight 185.00 lb Heart Rate 94 /min BP Systolic Sitting 140 mmHg BP Diastolic Sitting 88 mmHg Body Temperature 99.8 F Pain Level 4 back pain from coughing O2 % BldC Oximetry 94 % BMI (Body Mass Index) 29.4 kg/m2 10/14/2017 12:14pm Height 66.5 inches 5'6.50" Weight 187.12 lb no shoes Heart Rate 102 /min BP Systolic Sitting 150 mmHg Rue reg cuff BP Diastolic Sitting 80 mmHg Rue reg cuff Respiratory Rate 16 /min O2 % BldC Oximetry 98 % On Ra BMI (Body Mass Index) 29.7 kg/m2 04/18/2017 1:11pm Height 66.5 inches 5'6.50" Weight 174.50 lb Heart Rate 89 /min BP Systolic 128 mmHg BP Diastolic 68 mmHg Body Temperature 97.6 F O2 % BldC Oximetry 97 % BMI (Body Mass Index) 27.7 kg/m2 03/18/2017 2:23pm Height 66 inches 5'6" Weight 175.00 lb Heart Rate 80 /min BP Systolic Sitting 130 mmHg BP Diastolic Sitting 72 mmHg Respiratory Rate 16 /min BMI (Body Mass Index) 28.2 kg/m2 10/12/2016 10:22am Height 66 inches 5'6" Weight 180.00 lb Heart Rate 81 /min BP Systolic Sitting 130 mmHg BP Diastolic Sitting 76 mmHg Respiratory Rate 16 /min O2 % BldC Oximetry 98 % BMI (Body Mass Index) 29.0 kg/m2 08/22/2016 9:49am Weight 181.00 lb with shoes Heart Rate 70 /min BP Systolic Sitting 124 mmHg BP Diastolic Sitting 70 mmHg O2 % BldC Oximetry 96 % 06/15/2016 1:28pm Weight 183.00 lb Heart Rate 78 /min BP Systolic Sitting 154 mmHg BP Diastolic Sitting 72 mmHg Body Temperature 98.0 F O2 % BldC Oximetry 98 % 05/23/2016 2:58pm Weight 181.00 lb Heart Rate 100 /min BP Systolic Sitting 128 mmHg BP Diastolic Sitting 70 mmHg Body Temperature 98.6 F O2 % BldC Oximetry 98 % 05/07/2016 10:17am Height 66 inches 5'6" Weight 185.00 lb Heart Rate 82 /min BP Systolic Sitting 128 mmHg BP Diastolic Sitting 76 mmHg Respiratory Rate 15 /min Body Temperature 97.6 F O2 % BldC Oximetry 98 % BMI (Body Mass Index) 29.9 kg/m2 04/11/2016 9:49am Height 66 inches 5'6" Weight 180.00 lb Heart Rate 72 /min BP Systolic Sitting 146 mmHg BP Diastolic Sitting 82 mmHg Respiratory Rate 14 /min O2 % BldC Oximetry 98 % BMI (Body Mass Index) 29.0 kg/m2 04/04/2016 10:01am Height 66 inches 5'6" Weight 180.00 lb Heart Rate 84 /min BP Systolic Sitting 150 mmHg BP Diastolic Sitting 100 mmHg Respiratory Rate 15 /min Body Temperature 98.4 F O2 % BldC Oximetry 97 % BMI (Body Mass Index) 29.0 kg/m2 02/27/2016 12:59pm Height 66 inches 5'6" Weight 181.00 lb Heart Rate 78 /min BP Systolic 174 mmHg BP Diastolic 88 mmHg Respiratory Rate 14 /min O2 % BldC Oximetry 97 % BMI (Body Mass Index) 29.2 kg/m2 02/09/2016 11:09am Weight 181.50 lb Heart Rate 74 /min BP Systolic Sitting 180 mmHg BP Diastolic Sitting 77 mmHg Body Temperature 99.0 F O2 % BldC Oximetry 97 % 01/09/2016 12:52pm Height 66 inches 5'6" Weight 186.00 lb Heart Rate 80 /min BP Systolic Sitting 148 mmHg BP Diastolic Sitting 80 mmHg Respiratory Rate 18 /min O2 % BldC Oximetry 98 % BMI (Body Mass Index) 30.0 kg/m2 12/23/2015 1:02pm Weight 186.00 lb Heart Rate 86 /min BP Systolic Sitting 156 mmHg BP Diastolic Sitting 74 mmHg Respiratory Rate 18 /min Body Temperature 98.3 F O2 % BldC Oximetry 96 % 12/07/2015 9:38am Height 65 inches 5'5" Weight 181.75 lb Heart Rate 85 /min BP Systolic Sitting 116 mmHg BP Diastolic Sitting 66 mmHg Respiratory Rate 18 /min O2 % BldC Oximetry 98 % BMI (Body Mass Index) 30.2 kg/m2 12/01/2015 1:20pm Height 65 inches 5'5" Weight 181.75 lb Heart Rate 107 /min BP Systolic Sitting 114 mmHg BP Diastolic Sitting 66 mmHg Body Temperature 97.2 F Pain Level 9 O2 % BldC Oximetry 96 % BMI (Body Mass Index) 30.2 kg/m2 11/07/2015 1:04pm Height 65 inches 5'5" Weight 193.00 lb Heart Rate 80 /min BP Systolic Sitting 128 mmHg BP Diastolic Sitting 66 mmHg Respiratory Rate 16 /min BMI (Body Mass Index) 32.1 kg/m2 09/30/2015 1:34pm Height 65 inches 5'5" Weight 191.00 lb Heart Rate 96 /min BP Systolic Sitting 121 mmHg BP Diastolic Sitting 78 mmHg Body Temperature 98.1 F O2 % BldC Oximetry 97 % BMI (Body Mass Index) 31.8 kg/m2 05/12/2015 10:52am Weight 198.00 lb Heart Rate 80 /min BP Systolic Sitting 136 mmHg BP Diastolic Sitting 66 mmHg Body Temperature 98.4 F 04/28/2015 11:21am Height 67.75 inches 5'7.75" Weight 199.00 lb Heart Rate 48 /min BP Systolic Sitting 134 mmHg BP Diastolic Sitting 80 mmHg Respiratory Rate 19 /min O2 % BldC Oximetry 91 % BMI (Body Mass Index) 30.5 kg/m2 04/04/2015 1:08pm Height 67.75 inches 5'7.75" Weight 199.00 lb Heart Rate 68 /min BP Systolic Sitting 138 mmHg BP Diastolic Sitting 76 mmHg Respiratory Rate 16 /min BMI (Body Mass Index) 30.5 kg/m2 03/31/2015 9:42am Height 67.75 inches 5'7.75" Weight 200.00 lb Heart Rate 75 /min BP Systolic 148 mmHg BP Diastolic 74 mmHg BP Systolic Recheck 136 mmHg BP Diastolic Recheck 66 mmHg Body Temperature 98.8 F BMI (Body Mass Index) 30.6 kg/m2 12/27/2014 11:33am Height 67.75 inches 5'7.75" Weight 209.00 lb Heart Rate 98 /min BP Systolic Sitting 152 mmHg left arm, reg cuff BP Diastolic Sitting 70 mmHg left arm, reg cuff Respiratory Rate 16 /min Body Temperature 97.2 F temporal O2 % BldC Oximetry 98 % Room air BMI (Body Mass Index) 32.0 kg/m2 11/10/2014 10:58am Height 67.75 inches 5'7.75" Weight 206.25 lb Heart Rate 85 /min BP Systolic Sitting 136 mmHg BP Diastolic Sitting 78 mmHg Body Temperature 98.5 F O2 % BldC Oximetry 95 % BMI (Body Mass Index) 31.6 kg/m2 11/09/2014 10:01am Heart Rate 87 /min BP Systolic Sitting 150 mmHg BP Diastolic Sitting 80 mmHg Respiratory Rate 18 /min O2 % BldC Oximetry 98 % 10/18/2014 1:28pm Height 65 inches 5'5" Weight 208.00 lb Heart Rate 100 /min BP Systolic Sitting 130 mmHg LA reg cuff BP Diastolic Sitting 76 mmHg LA reg cuff Respiratory Rate 12 /min Body Temperature 97.6 F O2 % BldC Oximetry 95 % BMI (Body Mass Index) 34.6 kg/m2 10/13/2014 9:09am Height 65 inches 5'5" Weight 203.00 lb Heart Rate 64 /min Irregular BP Systolic Sitting 138 mmHg BP Diastolic Sitting 60 mmHg Respiratory Rate 16 /min BMI (Body Mass Index) 33.8 kg/m2 10/06/2014 1:42pm Height 65 inches 5'5" Weight 207.31 lb Heart Rate 75 /min BP Systolic Sitting 124 mmHg BP Diastolic Sitting 68 mmHg Body Temperature 98.6 F O2 % BldC Oximetry 97 % BMI (Body Mass Index) 34.5 kg/m2 09/08/2014 1:18pm Height 65 inches 5'5" Weight 205.00 lb Heart Rate 95 /min BP Systolic Sitting 132 mmHg BP Diastolic Sitting 74 mmHg Respiratory Rate 20 /min Body Temperature 98.9 F O2 % BldC Oximetry 98 % room air BMI (Body Mass Index) 34.1 kg/m2 Neck Circumference in inches 17.5 09/02/2014 10:27am Height 66.75 inches 5'6.75" Weight 199.00 lb Heart Rate 88 /min BP Systolic Sitting 126 mmHg BP Diastolic Sitting 82 mmHg Body Temperature 98.2 F O2 % BldC Oximetry 98 % BMI (Body Mass Index) 31.4 kg/m2 08/23/2014 10:00am Height 66.75 inches 5'6.75" Weight 201.00 lb Heart Rate 80 /min BP Systolic Sitting 128 mmHg BP Diastolic Sitting 78 mmHg BMI (Body Mass Index) 31.7 kg/m2 07/19/2014 2:01pm Height 66.75 inches 5'6.75" Weight 202.00 lb Heart Rate 68 /min BP Systolic Sitting 150 mmHg BP Diastolic Sitting 90 mmHg Respiratory Rate 16 /min BMI (Body Mass Index) 31.9 kg/m2 04/28/2014 11:53am Weight 202.00 lb Heart Rate 82 /min BP Systolic Sitting 136 mmHg BP Diastolic Sitting 80 mmHg 03/31/2014 10:21am Height 66.75 inches 5'6.75" Weight 204.00 lb Heart Rate 72 /min BP Systolic Sitting 145 mmHg BP Diastolic Sitting 82 mmHg Body Temperature 98.4 F BMI (Body Mass Index) 32.2 kg/m2 02/18/2014 9:52am Height 66.75 inches 5'6.75" Weight 208.00 lb Heart Rate 88 /min BP Systolic Sitting 158 mmHg 134/80 BP Diastolic Sitting 70 mmHg 134/80 Respiratory Rate 18 /min Body Temperature 98.3 F BMI (Body Mass Index) 32.8 kg/m2 01/18/2014 1:09pm Heart Rate 70 /min BP Systolic Sitting 138 mmHg BP Diastolic Sitting 70 mmHg Respiratory Rate 16 /min 01/12/2014 10:14am Weight 206.00 lb Heart Rate 82 /min BP Systolic Sitting 134 mmHg BP Diastolic Sitting 80 mmHg 11/10/2013 1:08pm Height 66.5 inches 5'6.50" Weight 204.50 lb Heart Rate 80 /min BP Systolic Sitting 130 mmHg BP Diastolic Sitting 88 mmHg BMI (Body Mass Index) 32.5 kg/m2 10/19/2013 11:00am Heart Rate 70 /min BP Systolic Sitting 130 mmHg BP Diastolic Sitting 80 mmHg Respiratory Rate 18 /min 09/29/2013 9:50am Weight 202.50 lb Heart Rate 88 /min BP Systolic 140 mmHg BP Diastolic 72 mmHg 09/03/2013 11:02am Height 67 inches 5'7" Weight 200.00 lb Heart Rate 86 /min BP Systolic 141 mmHg BP Diastolic 84 mmHg BMI (Body Mass Index) 31.3 kg/m2 08/13/2013 2:28pm Weight 201.00 lb Heart Rate 100 /min BP Systolic Sitting 130 mmHg BP Diastolic Sitting 84 mmHg 07/31/2013 3:26pm Weight 197.00 lb Heart Rate 100 /min BP Systolic Sitting 128 mmHg BP Diastolic Sitting 82 mmHg Body Temperature 97.3 F O2 % BldC Oximetry 97 % 07/21/2013 11:32am Height 66.5 inches 5'6.50" Weight 197.50 lb Heart Rate 109 /min BP Systolic Sitting 114 mmHg BP Diastolic Sitting 68 mmHg Body Temperature 99.5 F O2 % BldC Oximetry 95 % BMI (Body Mass Index) 31.4 kg/m2 06/23/2013 8:51am Weight 200.00 lb Heart Rate 82 /min BP Systolic Sitting 140 mmHg BP Diastolic Sitting 78 mmHg 04/15/2013 11:48am Heart Rate 84 /min BP Systolic Sitting 130 mmHg BP Diastolic Sitting 76 mmHg Respiratory Rate 12 /min 03/11/2013 2:47pm Weight 198.00 lb Heart Rate 80 /min BP Systolic Sitting 162 mmHg BP Diastolic Sitting 80 mmHg 01/06/2013 2:34pm Height 66.5 inches 5'6.50" Weight 196.00 lb Heart Rate 82 /min BP Systolic Sitting 150 mmHg BP Diastolic Sitting 80 mmHg BMI (Body Mass Index) 31.2 kg/m2 11/05/2012 2:04pm Height 66.5 inches 5'6.50" Weight 195.00 lb Heart Rate 84 /min BP Systolic Sitting 162 mmHg BP Diastolic Sitting 80 mmHg BMI (Body Mass Index) 31.0 kg/m2 05/14/2012 9:02am Height 66.5 inches 5'6.50" Weight 209.00 lb Heart Rate 72 /min BP Systolic Sitting 144 mmHg BP Diastolic Sitting 78 mmHg BMI (Body Mass Index) 33.2 kg/m2 01/30/2012 2:25pm Height 66.5 inches 5'6.50" Weight 212.25 lb Heart Rate 84 /min BP Systolic Sitting 142 mmHg BP Diastolic Sitting 74 mmHg Body Temperature 99.1 F BMI (Body Mass Index) 33.7 kg/m2 01/15/2012 2:52pm Height 66.5 inches 5'6.50" Weight 212.00 lb Heart Rate 88 /min BP Systolic Sitting 142 mmHg BP Diastolic Sitting 80 mmHg O2 % BldC Oximetry 100 % BMI (Body Mass Index) 33.7 kg/m2 01/07/2012 1:38pm Height 66.5 inches 5'6.50" Weight 205.00 lb Heart Rate 84 /min BP Systolic Sitting 158 mmHg BP Diastolic Sitting 80 mmHg Body Temperature 98.4 F O2 % BldC Oximetry 98 % BMI (Body Mass Index) 32.6 kg/m2 12/31/2011 1:21pm Height 66.5 inches 5'6.50" Weight 201.00 lb Heart Rate 104 /min BP Systolic Sitting 124 mmHg BP Diastolic Sitting 70 mmHg Body Temperature 97.9 F BMI (Body Mass Index) 32.0 kg/m2 11/27/2011 9:59am Height 66.5 inches 5'6.50" Weight 202.00 lb Heart Rate 74 /min BP Systolic Sitting 138 mmHg BP Diastolic Sitting 82 mmHg BMI (Body Mass Index) 32.1 kg/m2 09/17/2011 11:30am Height 66.5 inches 5'6.50" Weight 212.00 lb from 9/11 visit BP Systolic Sitting 124 mmHg BP Diastolic Sitting 72 mmHg BMI (Body Mass Index) 33.7 kg/m2 08/22/2011 2:24pm Height 66.5 inches 5'6.50" Weight 212.00 lb Heart Rate 66 /min BP Systolic Sitting 130 mmHg BP Diastolic Sitting 84 mmHg BMI (Body Mass Index) 33.7 kg/m2 07/26/2011 4:35pm Height 66.5 inches 5'6.50" Weight 205.50 lb Heart Rate 84 /min BP Systolic 126 mmHg BP Diastolic 60 mmHg Body Temperature 99.1 F BMI (Body Mass Index) 32.7 kg/m2 07/25/2011 9:45am Height 65.5 inches 5'5.50" Weight 206.00 lb Heart Rate 68 /min BP Systolic Sitting 128 mmHg BP Diastolic Sitting 80 mmHg BMI (Body Mass Index) 33.8 kg/m2 05/24/2011 3:07pm Height 65.5 inches 5'5.50" Weight 210.00 lb Heart Rate 78 /min BP Systolic Sitting 126 mmHg BP Diastolic Sitting 70 mmHg BMI (Body Mass Index) 34.4 kg/m2 Results Test Date Facility Test Result H/L Range Note CBC Auto Diff 08/13/2018 [facility] White Blood 10.2 10^3/uL N 3.5-10.[address] [place] [address] [phone] Red Blood Count 4.80 10^6/uL N 4.00-5.40 Hemoglobin 13.6 g/dL N 12.0-16.0 Hematocrit 40 % N 35-47 Mean Corpuscular Volume 84 fL N 80-97 Mean Corpuscular Hemoglobin 28 pg N 27-31 Mean Corpuscular HGB Conc 34 g/dL N 31-36 Red Cell Distribution Width 14 % N 10.5-15 Platelet Count 308 10^3/uL N 150-450 Mean Platelet Volume 7.6 um3 N 7.4-10.4 Abs Neutrophils 7.2 10^3/uL N 1.5-7.7 Abs Lymphocytes 2.2 10^3/uL N 1.0-4.8 Abs Monocytes 0.6 10^3/uL N 0-0.8 Abs Eosinophils 0.2 10^3/uL N 0-0.6 Abs Basophils 0.1 10^3/uL N 0-0.2 Abs Nucleated RBC 0 10^3/uL Granulocyte % 70.4 % N 38-83 Lymphocyte % 21.9 % Low 25-47 Monocyte % 5.4 % N 0-7 Eosinophil % 1.6 % N 0-6 Basophil % 0.7 % N 0-2 Nucleated Red Blood Cells % 0 Comp Metabolic Panel 08/13/2018 [facility] Sodium 135 mmol/L N 135-[address] [place] [address] [phone] Potassium 2.9 mmol/L Low 3.5-5.0 Chloride 99 mmol/L Low 101-111 Co2 Carbon Dioxide 27 mmol/L N 22-32 Anion Gap 9 mmol/L N 2-11 Glucose 111 mg/dL High 70-100 Blood Urea Nitrogen 11 mg/dL N 6-24 Creatinine 0.81 mg/dL N 0.51-0.95 BUN/Creatinine Ratio 13.6 N 8-20 Calcium 9.2 mg/dL N 8.6-10.3 Total Protein 6.7 g/dL N 6.4-8.9 Albumin 4.1 g/dL N 3.2-5.2 Globulin 2.6 g/dL N 2-4 Albumin/Globulin Ratio 1.6 N 1-3 Total Bilirubin 0.50 mg/dL N 0.2-1.0 Alkaline Phosphatase 76 U/L N 34-104 Alt 13 U/L N 7-52 Ast 12 U/L Low 13-39 Egfr Non- 69.1 >60 Egfr 83.6 >60 1 Laboratory test 08/13/2018 [facility] C Reactive 2.55 mg/L N < 8.[address] [place] [address] [phone] Blood Culture SEE RESULT BELOW 2 Order 01/22/2018 [facility] peak flow <pending> [address] [place] [address] [phone] Sputum Culture 10/15/2017 [facility] Sputum Culture SEE RESULT 3 & Sensitiv [address] [place] [address] [phone] Lipid Profile 03/19/2017 [facility] Triglycerides 172 mg/dL N 4 (Trig/Chol/HDL [address] ) [place] [address] [phone] Cholesterol 208 mg/dL N 5 HDL Cholesterol 62.9 mg/dL N 6 LDL Cholesterol 111 mg/dL N 7 Comp Metabolic Panel 03/19/2017 [facility] Sodium 136 mmol/L N 133-[address] [place] [address] [phone] Potassium 3.6 mmol/L N 3.5-5.0 Chloride 98 mmol/L Low 101-111 Co2 Carbon Dioxide 31 mmol/L N 22-32 Anion Gap 7 mmol/L N 2-11 Glucose 108 mg/dL High 70-100 Blood Urea Nitrogen 12 mg/dL N 6-24 Creatinine 0.63 mg/dL N 0.51-0.95 BUN/Creatinine Ratio 19.0 N 8-20 Calcium 9.4 mg/dL N 8.6-10.3 Total Protein 6.3 g/dL Low 6.4-8.9 Albumin 4.2 g/dL N 3.2-5.2 Globulin 2.1 g/dL N 2-4 Albumin/Globulin Ratio 2.0 N 1-3 Total Bilirubin 0.50 mg/dL N 0.2-1.0 Alkaline Phosphatase 47 U/L N 34-104 Alt 7 U/L N 7-52 Ast 9 U/L Low 13-39 Egfr Non- 92.9 N >60 Egfr 119.5 N >60 8 CBC Auto Diff 03/19/2017 [facility] White Blood 5.7 10^3/uL N 3.5-10.[address] [place] [address] [phone] Red Blood Count 4.83 10^6/uL N 4.0-5.4 Hemoglobin 14.4 g/dL N 12.0-16.0 Hematocrit 42 % N 35-47 Mean Corpuscular Volume 87 fL N 80-97 Mean Corpuscular Hemoglobin 30 pg N 27-31 Mean Corpuscular HGB Conc 34 g/dL N 31-36 Red Cell Distribution Width 14 % N 10.5-15 Platelet Count 213 10^3/uL N 150-450 Mean Platelet Volume 9 um3 N 7.4-10.4 Abs Neutrophils 3.9 10^3/uL N 1.5-7.7 Abs Lymphocytes 1.3 10^3/uL N 1.0-4.8 Abs Monocytes 0.4 10^3/uL N 0-0.8 Abs Eosinophils 0.1 10^3/uL N 0-0.6 Abs Basophils 0 10^3/uL N 0-0.2 Abs Nucleated RBC 0 10^3/uL N Granulocyte % 69.1 % N 38-83 Lymphocyte % 22.6 % Low 25-47 Monocyte % 6.4 % N 1-9 Eosinophil % 1.4 % N 0-6 Basophil % 0.5 % N 0-2 Nucleated Red Blood Cells % 0.1 N CBC Auto Diff 05/07/2016 [facility] White Blood 5.9 10^3/uL N 3.5-10.[address] [place] [address] [phone] Red Blood Count 4.91 10^6/uL N 4.0-5.4 Hemoglobin 14.0 g/dL N 12.0-16.0 Hematocrit 42 % N 35-47 Mean Corpuscular Volume 86 fL N 80-97 Mean Corpuscular Hemoglobin 29 pg N 27-31 Mean Corpuscular HGB Conc 33 g/dL N 31-36 Red Cell Distribution Width 14 % N 10.5-15 Platelet Count 261 10^3/uL N 150-450 Mean Platelet Volume 8 um3 N 7.4-10.4 Abs Neutrophils 4.0 10^3/uL N 1.5-7.7 Abs Lymphocytes 1.5 10^3/uL N 1.0-4.8 Abs Monocytes 0.3 10^3/uL N 0-0.8 Abs Eosinophils 0.1 10^3/uL N 0-0.6 Abs Basophils 0 10^3/uL N 0-0.2 Abs Nucleated RBC 0.01 10^3/uL N Granulocyte % 67.7 % N 38-83 Lymphocyte % 25.3 % N 25-47 Monocyte % 5.3 % N 1-9 Eosinophil % 1.0 % N 0-6 Basophil % 0.7 % N 0-2 Nucleated Red Blood Cells % 0.1 N Liver Function 05/07/2016 [facility] Total Protein 6.5 g/dL N 6.4-8.[address] [place] [address] [phone] Albumin 4.4 g/dL N 3.2-5.2 Globulin 2.1 g/dL N 2-4 Albumin/Globulin Ratio 2.1 N 1-3 Total Bilirubin 0.30 mg/dL N 0.2-1.0 Direct Bilirubin 0.10 mg/dL N 0.03-0.18 Indirect Bilirubin 0.2 mg/dL Low 0.3-1.0 Alkaline Phosphatase 56 U/L N 34-104 Alt 12 U/L N 7-52 Ast 14 U/L N 13-39 Basic Metabolic Panel 05/02/2016 [facility] Sodium 138 mmol/L N 133-145 [address] [place] [address] [phone] Potassium 3.5 mmol/L N 3.5-5.0 Chloride 98 mmol/L Low 101-111 Co2 Carbon Dioxide 32 mmol/L N 22-32 Anion Gap 8 mmol/L N 2-11 Glucose 105 mg/dL High 70-100 Blood Urea Nitrogen 7 mg/dL N 6-24 Creatinine 0.63 mg/dL N 0.51-0.95 BUN/Creatinine Ratio 11.1 N 8-20 Calcium 9.4 mg/dL N 8.6-10.3 Egfr Non- 93.2 N >60 Egfr 119.8 N >60 9 Laboratory test 05/02/2016 [facility] Magnesium 1.7 mg/dL Low 1.9-2.7 finding [address] [place] [address] [phone] Basic Metabolic 12/01/2015 [facility] Sodium 132 mmol/L Low 133-145 Panel [address] [place] [address] [phone] Potassium 5.3 mmol/L High 3.5-5.0 Chloride 98 mmol/L Low 101-111 Co2 Carbon Dioxide 23 mmol/L N 22-32 Anion Gap 11 mmol/L N 2-11 Glucose 99 mg/dL N 70-100 Blood Urea Nitrogen 20 mg/dL N 6-24 Creatinine 0.97 mg/dL High 0.51-0.95 BUN/Creatinine Ratio 20.6 High 8-20 Calcium 8.7 mg/dL N 8.6-10.3 Egfr Non- 56.6 N >60 Egfr 72.8 N >60 10 Laboratory test 12/01/2015 [facility] Magnesium 1.7 mg/dL Low 1.9-2.7 finding [address] [place] [address] [phone] Laboratory test 11/25/2015 [facility] Blood Culture SEE RESULT [address] [place] [address] [phone] Urine Culture And Sensitivities SEE RESULT BELOW 12 Urinalysis Profile 11/25/2015 [facility] Urine Color Olimpia N [address] [place] [address] [phone] Urine Appearance Cloudy N Urine Specific [place] 1.015 N 1.010-1.030 Urine pH 6.0 N 5-9 Urine Urobilinogen Positive Abnormal Negative Urine Ketones Negative N Negative Urine Protein 1+(30 mg/dL) Abnormal Negative Urine Leukocytes Negative N Negative Urine Blood Negative N Negative Urine Nitrite Negative N Negative Urine Bilirubin Negative N Negative Urine Glucose 1+(50 mg/dL) Abnormal Negative Urine White Blood Cell 2+(11-20/hpf) Abnormal Absent Urine Red Blood Cell Trace(0-2/hpf) N Absent Urine Bacteria 1+ Abnormal Absent Urine Squamous Epithelial Cell Present Abnormal Absent Laboratory test 11/25/2015 [facility] Troponin-I 0.03 ng/mL High <0.[address] (TnI) [place] [address] [phone] Magnesium 2.2 mg/dL N 1.9-2.7 Comp Metabolic Panel 11/25/2015 [facility] Sodium 127 mmol/L Low 133-[address] [place] [address] [phone] Chloride 88 mmol/L Low 101-111 Co2 Carbon Dioxide 25 mmol/L N 22-32 Glucose 118 mg/dL High 70-100 Blood Urea Nitrogen 17 mg/dL N 6-24 Creatinine 0.70 mg/dL N 0.51-0.95 BUN/Creatinine Ratio 24.3 High 8-20 Calcium 8.6 mg/dL N 8.6-10.3 Total Protein 6.9 g/dL N 6.4-8.9 Albumin 3.3 g/dL N 3.2-5.2 Globulin 3.6 g/dL N 2-4 Albumin/Globulin Ratio 0.9 Low 1-3 Total Bilirubin 1.20 mg/dL High 0.2-1.0 Alkaline Phosphatase 144 U/L High 34-104 Alt 34 U/L N 7-52 Ast 38 U/L N 13-39 Egfr Non- 82.5 N >60 Egfr 106.1 N >60 14 Potassium 2.7 mmol/L Low 3.5-5.0 15 Anion Gap 14 mmol/L High 2-11 Laboratory test 11/25/2015 [facility] Partial 18.1 seconds Low 26.0-36.[address] [place] [address] PTT [phone] Lactic Acid 1.2 mmol/L N 0.5-2.0 16 Inr/Protime 11/25/2015 [facility] Inr 1.27 High 0.89-1.[address] [place] [address] [phone] CBC Auto Diff 11/25/2015 [facility] White Blood 16.2 High 3.5- 10.[address] Count 10^3/[place] [address] [phone] Red Blood Count 5.06 10^6/uL N 4.0-5.4 Hemoglobin 14.3 g/dL N 12.0-16.0 Hematocrit 43 % N 35-47 Mean Corpuscular Volume 85 fL N 80-97 Mean Corpuscular Hemoglobin 28 pg N 27-31 Mean Corpuscular HGB Conc 33 g/dL N 31-36 Red Cell Distribution Width 14 % N 10.5-15 Platelet Count 326 10^3/uL N 150-450 Mean Platelet Volume 8 um3 N 7.4-10.4 Abs Neutrophils 14.7 10^3/uL High 1.5-7.7 Abs Lymphocytes 0.8 10^3/uL Low 1.0-4.8 Abs Monocytes 0.7 10^3/uL N 0-0.8 Abs Eosinophils 0 10^3/uL N 0-0.6 Abs Basophils 0 10^3/uL N 0-0.2 Abs Nucleated RBC 0 10^3/uL N Granulocyte % 90.5 % High 38-83 Lymphocyte % 5.0 % Low 25-47 Monocyte % 4.3 % N 1-9 Eosinophil % 0 % N 0-6 Basophil % 0.2 % N 0-2 Nucleated Red Blood Cells % 0 N Laboratory test 11/25/2015 [facility] Troponin-I 0.04 High < 0.03 [address] (TnI) ng/[place] [address] [phone] Comp Metabolic 09/27/2015 [facility] Sodium 138 N 133-[address] mmol/[place] [address] [phone] Potassium 3.4 mmol/L Low 3.5-5.0 Chloride 98 mmol/L Low 101-111 Co2 Carbon Dioxide 32 mmol/L N 22-32 Anion Gap 8 mmol/L N 2-11 Glucose 113 mg/dL High 70-100 Blood Urea Nitrogen 9 mg/dL N 6-24 Creatinine 0.66 mg/dL N 0.51-0.95 BUN/Creatinine Ratio 13.6 N 8-20 Calcium 9.5 mg/dL N 8.6-10.3 Total Protein 6.5 g/dL N 6.4-8.9 Albumin 4.2 g/dL N 3.2-5.2 Globulin 2.3 g/dL N 2-4 Albumin/Globulin Ratio 1.8 N 1-3 Total Bilirubin 0.40 mg/dL N 0.2-1.0 Alkaline Phosphatase 68 U/L N 34-104 Alt 14 U/L N 7-52 Ast 14 U/L N 13-39 Egfr Non- 88.3 N >60 Egfr 113.5 N >60 18 Lipid Profile 09/27/2015 [facility] Triglycerides 240 mg/dL N 19 (Trig/Chol/HDL) [address] [place] [address] [phone] Cholesterol 213 mg/dL N 20 HDL Cholesterol 55.0 mg/dL N 21 LDL Cholesterol 110 mg/dL N 22 Laboratory test finding 04/04/2015 Free T4 0.81 ng/mL N 0.61-1.12 TSH (Thyroid Stimulating Horm) 0.84 IU/mL N 0.34-5.60 Liver Function Panel 03/31/2015 Total Protein 6.6 g/dL N 6.4-8.9 Albumin 4.4 g/dL N 3.2-5.2 Globulin 2.2 g/dL N 2-4 Albumin/Globulin Ratio 2.0 N 1-3 Total Bilirubin 0.50 mg/dL N 0.2-1.0 Direct Bilirubin 0.10 mg/dL N 0.03-0.18 Indirect Bilirubin 0.4 mg/dL N 0.3-1.0 Alkaline Phosphatase 72 U/L N 34-104 Alt 12 U/L N 7-52 Ast 11 U/L Low 13-39 CBC Auto Diff 03/31/2015 White Blood Count 7.5 10^3/uL N 4.8-10.8 Red Blood Count 4.92 10^6/uL N 4.0-5.4 Hemoglobin 14.5 g/dL N 12.0-16.0 Hematocrit 42 % N 35-47 Mean Corpuscular Volume 86 fL N 80-97 Mean Corpuscular Hemoglobin 30 pg N 27-31 Mean Corpuscular HGB Conc 34 g/dL N 31-36 Red Cell Distribution Width 14 % N 10.5-15 Platelet Count 317 10^3/uL N 150-450 Mean Platelet Volume 8 um3 N 7.4-10.4 Abs Neutrophils 5.5 10^3/uL N 1.5-7.7 Abs Lymphocytes 1.4 10^3/uL N 1.0-4.8 Abs Monocytes 0.4 10^3/uL N 0-0.8 Abs Eosinophils 0.1 10^3/uL N 0-0.6 Abs Basophils 0.1 10^3/uL N 0-0.2 Abs Nucleated RBC 0.01 10^3/uL N Granulocyte % 73.2 % N 38-83 Lymphocyte % 18.9 % Low 25-47 Monocyte % 5.7 % N 1-9 Eosinophil % 1.4 % N 0-6 Basophil % 0.8 % N 0-2 Nucleated Red Blood Cells % 0.2 N Lipid Profile 11/09/2014 [facility] Triglycerides 157 mg/dL N 23, 24 (Trig/Chol/HDL) [address] [place] [address] [phone] Cholesterol 190 mg/dL N 25 HDL Cholesterol 59.5 mg/dL N 26 LDL Cholesterol 99 mg/dL N 27 Comp Metabolic Panel 11/09/2014 [facility] Sodium 134 mmol/L N 133-145 [address] [place] [address] [phone] Potassium 4.1 mmol/L N 3.5-5.0 Chloride 97 mmol/L Low 101-111 Co2 Carbon Dioxide 29 mmol/L N 22-32 Anion Gap 8 mmol/L N 2-11 Glucose 98 mg/dL N 70-100 Blood Urea Nitrogen 7 mg/dL N 6-24 Creatinine 0.62 mg/dL N 0.51-0.95 BUN/Creatinine Ratio 11.3 N 8-20 Calcium 8.9 mg/dL N 8.6-10.3 Total Protein 6.2 g/dL Low 6.4-8.9 Albumin 4.1 g/dL N 3.2-5.2 Globulin 2.1 g/dL N 2-4 Albumin/Globulin Ratio 2.0 N 1-3 Total Bilirubin 0.40 mg/dL N 0.2-1.0 Alkaline Phosphatase 69 U/L N 34-104 Alt 14 U/L N 7-52 Ast 14 U/L N 13-39 Egfr Non- 95.2 N >60 Egfr 122.4 N >60 28 Vitamin D, 25 11/09/2014 [facility] 25-Hydroxy Vitamin 4.7 ng/ mL N Hydroxy [address] D[address] [place] [address] [phone] 25-Hydroxy Vitamin D3 34 ng/mL N 25-Hydroxy Vitamin D Total 39 ng/mL N 29 Laboratory test 11/09/2014 [facility] Vitamin B12 546 pg/mL N 180-914 [address] [place] [address] [phone] Sputum Culture 11/03/2014 [facility] Sputum Culture (SEE NOTE) 31 & Sensitiv [address] [place] [address] [phone] Sputum Culture 11/02/2014 [facility] Sputum Culture (SEE NOTE) 32 & Sensitiv [address] [place] [address] [phone] Laboratory test 11/02/2014 [facility] Mycobacterial See Comment N [address] [place] [address] [phone] Acid Fast Smear 11/02/2014 [facility] Acid Fast Stain - (SEE NOTE) [address] [place] [address] [phone] Sputum Culture 11/01/2014 [facility] Sputum Culture (SEE NOTE) 35 & Sensitiv [address] [place] [address] [phone] Laboratory test 11/01/2014 [facility] Acid Fast Stain - (SEE NOTE) [address] [place] [address] [phone] Laboratory test 11/01/2014 [facility] Mycobacterial See Comment N [address] [place] [address] [phone] Liver Function 08/10/2014 Total Protein 6.7 g/dL N 6.4-8.9 Panel Albumin 4.3 g/dL N 3.2-5.2 Globulin 2.4 g/dL N 2-4 Albumin/Globulin Ratio 1.8 N 1-3 Total Bilirubin 0.30 mg/dL N 0.2-1.0 Direct Bilirubin 0.10 mg/dL N 0.03-0.18 Indirect Bilirubin 0.2 mg/dL Low 0.3-1.0 Alkaline Phosphatase 81 U/L N 34-104 Alt 16 U/L N 7-52 Ast 13 U/L N 13-39 CBC Auto Diff 08/10/2014 White Blood Count 7.6 10^3/uL N 4.8-10.8 Red Blood Count 4.74 10^6/uL N 4.0-5.4 Hemoglobin 13.7 g/dL N 12.0-16.0 Hematocrit 40 % N 35-47 Mean Corpuscular Volume 85 fL N 80-97 Mean Corpuscular Hemoglobin 29 pg N 27-31 Mean Corpuscular HGB Conc 34 g/dL N 31-36 Red Cell Distribution Width 14 % N 10.5-15 Platelet Count 293 10^3/uL N 150-450 Mean Platelet Volume 8 um3 N 7.4-10.4 Abs Neutrophils 5.7 10^3/uL N 1.5-7.7 Abs Lymphocytes 1.3 10^3/uL N 1.0-4.8 Abs Monocytes 0.4 10^3/uL N 0-0.8 Abs Eosinophils 0.1 10^3/uL N 0-0.6 Abs Basophils 0.1 10^3/uL N 0-0.2 Abs Nucleated RBC 0 10^3/uL N Granulocyte % 75.9 % N 38-83 Lymphocyte % 16.6 % Low 25-47 Monocyte % 4.9 % N 1-9 Eosinophil % 1.9 % N 0-6 Basophil % 0.7 % N 0-2 Nucleated Red Blood Cells % 0 N Surgical 06/25/2014 [facility] S RUN DATE: [address] 06/29/ <[place] [address] NOTE> [phone] CBC Auto Diff 02/18/2014 [facility] White Blood 7.7 10^3/uL N 4.8-10. [address] Count 8 [place] [address] [phone] Red Blood Count 4.75 10^6/uL N 4.0-5.4 Hemoglobin 13.6 g/dL N 12.0-16.0 Hematocrit 40 % N 35-47 Mean Corpuscular Volume 85 fL N 80-97 Mean Corpuscular Hemoglobin 29 pg N 27-31 Mean Corpuscular HGB Conc 34 g/dL N 31-36 Red Cell Distribution Width 14 % N 10.5-15 Platelet Count 282 10^3/uL N 150-450 Mean Platelet Volume 8 um3 N 7.4-10.4 Abs Neutrophils 5.6 10^3/uL N 1.5-7.7 Abs Lymphocytes 1.4 10^3/uL N 1.0-4.8 Abs Monocytes 0.5 10^3/uL N 0-0.8 Abs Eosinophils 0.2 10^3/uL N 0-0.6 Abs Basophils 0 10^3/uL N 0-0.2 Abs Nucleated RBC 0.01 10^3/uL N Granulocyte % 72.6 % N 38-83 Lymphocyte % 18.3 % Low 25-47 Monocyte % 6.4 % N 1-9 Eosinophil % 2.2 % N 0-6 Basophil % 0.5 % N 0-2 Nucleated Red Blood Cells % 0.1 N Type & Screen 02/18/2014 [facility] Patient Blood Type A Positive N [address] [place] [address] [phone] Antibody Screen NEGATIVE N Lipid Profile 12/11/2013 [facility] Triglycerides 149 mg/dL 40-200 (Trig/Chol/HDL) [address] [place] [address] [phone] Cholesterol 203 mg/dL High Less than 200 HDL Cholesterol 69 mg/dL High 40-60 39 Cholesterol/HDL Ratio 2.9 Average 1-4.44 LDL Cholesterol 104.2 High Less Than 100 40 Vitamin D, 25 12/11/2013 [facility] 25-Hydroxy Vitamin <4.0 ng/ mL Hydroxy [address] D2 [place] [address] [phone] 25-Hydroxy Vitamin D3 39 ng/mL 25-Hydroxy Vitamin D Total 39 ng/mL 41 Comp Metabolic Panel 12/11/2013 [facility] Sodium 139 mmol/L 133-[address] [place] [address] [phone] Potassium 3.7 mmol/L 3.5-5.0 Chloride 100 mmol/L Low 101-111 Co2 Carbon Dioxide 31.0 mmol/L 22-32 Anion Gap 8.0 mmol/L 2-11 Glucose 100 mg/dL 70-100 Blood Urea Nitrogen 10 mg/dL 6-24 Creatinine 0.70 mg/dL 0.50-1.40 BUN/Creatinine Ratio 14.3 8-20 Calcium 9.3 mg/dL 8.1-9.9 Total Protein 6.2 g/dL 6.2-8.1 Albumin 4.0 g/dL 3.2-5.2 Globulin 2.2 g/dL 2-4 Albumin/Globulin Ratio 1.8 1-3 Total Bilirubin 0.5 mg/dL 0.4-1.5 Alkaline Phosphatase 78 U/L 30-110 Alt 17 U/L 14-54 Ast 17 U/L 12-42 Egfr Non- 83.0 >60 Egfr 106.7 >60 42 Laboratory test 12/11/2013 [facility] TSH (Thyroid 1.00 0.34- 5.[address] Stimulating miu/[place] [address] Horm) [phone] CBC Auto Diff 12/11/2013 [facility] White Blood 8.2 4.8-10.[address] Count 10^3/[place] [address] [phone] Red Blood Count 4.86 10^6/uL 4.0-5.4 Hemoglobin 13.5 g/dL 12.0-16.0 Hematocrit 41 % 35-47 Mean Corpuscular Volume 84 fL 80-97 Mean Corpuscular Hemoglobin 28 pg 27-31 Mean Corpuscular HGB Conc 33 g/dL 31-36 Red Cell Distribution Width 14 % 10.5-15 Platelet Count 309 10^3/uL 150-450 Mean Platelet Volume 7 um3 Low 7.4-10.4 Abs Neutrophils 6.2 10^3/uL 1.5-7.7 Abs Lymphocytes 1.4 10^3/uL 1.0-4.8 Abs Monocytes 0.4 10^3/uL 0-0.8 Abs Eosinophils 0.1 10^3/uL 0-0.6 Abs Basophils 0.1 10^3/uL 0-0.2 Abs Nucleated RBC 0 10^3/uL Granulocyte % 75.4 % 38-83 Lymphocyte % 17.7 % Low 25-47 Monocyte % 4.4 % 1-9 Eosinophil % 1.8 % 0-6 Basophil % 0.7 % 0-2 Nucleated Red Blood Cells % 0 Laboratory test 12/11/2013 [facility] Ferritin 37 ng/mL 11- [address] [place] [address] [phone] Immunofixation 03/17/2013 [facility] Albumin (Pep) 3.62 g/dL 3.0-4.35 (Electro) Serum [address] [place] [address] [phone] Alpha 1 Globulins 0.21 g/dL 0.09-0.33 Alpha 2 Globulin 1.05 g/dL 0.59-1.18 Beta Globulin 0.95 g/dL 0.68-1.02 Gamma Globulin 0.47 g/dL Low 0.76-1.60 Albumin % (Pep) 57.38 % 46-63 Alpha 1 Globulins % 3.3 % 1.2-5.3 Alpha 2 Globulin % 16.7 % 9-17 Beta Globulin % 15.1 % 10-16 Gamma Globulin % 7.5 % Low 12-22 Albumin/Globulin Ratio 1.4 0.9-2.0 Total Protein (Pep) 6.3 g/dL 6.2-8.1 Spep Comments (SEE NOTE) 43 Serum Immunofixation (SEE NOTE) 44 CBC With 03/17/2013 [facility] White Blood 8.0 10^3/uL 4.8- 10.8 Manual Diff [address] [place] [address] [phone] Red Blood Count 5.27 10^6/uL 4.0-5.4 Hemoglobin 14.5 g/dL 12.0-16.0 Hematocrit 45 % 35-47 Mean Corpuscular Volume 85 fL 80-97 Mean Corpuscular Hemoglobin 28 pg 27-31 Mean Corpuscular HGB Conc 33 g/dL 31-36 Red Cell Distribution Width 14 % 10.5-15 Platelet Count 326 10^3/uL 150-450 Mean Platelet Volume 8 um3 7.4-10.4 Abs Neutrophils 5.9 10^3/uL 1.5-7.7 Abs Lymphocytes 1.4 10^3/uL 1.0-4.8 Abs Monocytes 0.3 10^3/uL 0-0.8 Abs Eosinophils 0.3 10^3/uL 0-0.6 Abs Basophils 0.1 10^3/uL 0-0.2 Abs Nucleated RBC 0 10^3/uL Neutrophil % 76 % 38-83 Lymphocytes % 11 % Low 25-47 Monocytes % 9 % 0-13 Eosinophils % 3 % 0-6 Reactive Lymph % 1 % 0-6 RBC Morphology Normal Normal Laboratory test 03/17/2013 [facility] Magda (Anti-Nuclear Negative Negative [address] AB) [place] [address] [phone] Lipid Profile 12/08/2012 [facility] Triglycerides 156 mg/dL 40-200 (Trig/Chol/HDL) [address] [place] [address] [phone] Cholesterol 209 mg/dL High Less than 200 HDL Cholesterol 58 mg/dL 40-60 46 Cholesterol/HDL Ratio 3.6 Average 1-4.44 LDL Cholesterol 119.8 mg/dL High Less Than 100 47 Comp Metabolic Panel 12/08/2012 [facility] Sodium 141 mmol/L 133-[address] [place] [address] [phone] Potassium 3.4 mmol/L Low 3.5-5.0 Chloride 102 mmol/L 101-111 Co2 Carbon Dioxide 30.0 mmol/L 22-32 Anion Gap 9.0 mmol/L 2-11 Glucose 109 mg/dL High 70-100 Blood Urea Nitrogen 7 mg/dL 6-24 Creatinine 0.70 mg/dL 0.50-1.40 BUN/Creatinine Ratio 10.0 8-20 Calcium 9.2 mg/dL 8.1-9.9 Total Protein 6.0 g/dL Low 6.2-8.1 Albumin 4.0 g/dL 3.2-5.2 Globulin 2.0 g/dL 2-4 Albumin/Globulin Ratio 2.0 1-3 Total Bilirubin 0.6 mg/dL 0.4-1.5 Alkaline Phosphatase 87 U/L 30-110 Alt 19 U/L 14-54 Ast 18 U/L 12-42 Egfr Non- 83.2 >60 Egfr 107.0 >60 48 Vitamin D, 25 12/08/2012 [facility] 25-Hydroxy Vitamin <4.0 ng/ mL Hydroxy [address] D2 [place] [address] [phone] 25-Hydroxy Vitamin D3 48 ng/mL 25-Hydroxy Vitamin D Total 48 ng/mL 49 Laboratory test 12/08/2012 [facility] TSH (Thyroid 1.55 0.34- 5.[address] Stimulating miu/[place] [address] Horm) [phone] Ua Routine 11/05/2012 [facility] Ua Specific 1.005 [place] Ua PH 6.5 Ua Color yellow Ua Appera clear Ua WBC neg Ua Protein trace Ua Glucose neg Ua Ketones neg Ua Bilirubin neg Ua Urobilinogen neg Ua Nitrite neg Ua Occult Blood neg Urine Culture 01/30/2012 [facility] M <SEE 50 & Sensit[address] NOTE> [place], [place] [address] [phone] CBC No Diff 12/21/2011 [facility] White 7.5 CUMM 4.8-[address] Blood 0.8 [place] [address] Count [phone] Red Cell Count 4.31 CUMM 4.2-5.4 Hemoglobin 12.6 g/dL 12.0-16.0 Hematocrit 37 % 35-47 Mean Corpuscular Volume 86 um3 79-97 Mean Corpuscular Hemoglob 29 pg 27-31 Mean Corpuscular HGB Cone 34 g/dL 32-36 Redcell Distribution WDTH 14 % 10.5-15 Platelet Count 281 CUMM 150-450 Mean Platelet Volume 8.1 um3 7.4-10.4 Laboratory test 11/27/2011 [facility] Hemoglobin A1c 5.8 5-7 finding Comp Metabolic Panel 11/27/2011 [facility] Sodium 140 mmol/L 135-[address] [place] [address] [phone] Potassium 3.2 mmol/L Low 3.5-5.0 Chloride 101 mmol/L 101-111 Co2 (Carbon Dioxide) 32.0 mmol/L 22-32 Anion Gap 7.0 mmol/L 2-11 51 Glucose 109 mg/dL High 70-100 BUN 10 mg/dL 6-24 Creatinine 0.7 mg/dL 0.50-1.40 One Over Creatinine 1.42 BUN/Creatinine Ratio 14.3 8-20 Calcium 9.2 mg/dL 8.1-9.9 Total Protein 6.4 GM/DL 6.2-8.1 Albumin 4.0 GM/DL 3.2-5.2 Globulin 2.4 GM/DL 2-4 Albumin/Globulin Ratio 1.7 1-3 Bilirubin Total 0.6 mg/dL 0.4-1.5 52 Alkaline Phosphatase 86 U/L 30-110 Alt (SGPT) 18 U/L 14-54 Ast (Sgot) 18 U/L 12-42 eGFR Non- 83.5 > 60 eGFR 107.3 > 60 53 Lipid Profile 11/27/2011 [facility] Triglyceride 150 mg/dL 40 -200 (Trig/Chol/HDL) [address] [place], [place] [id number] [phone] Cholesterol 228 mg/dL High Less Than 200 54 High Density Lipoprotein 68 mg/dL High 40-60 55 Cholesterol/HDL Ratio 3.35 AVERAGE 1-4.44 Low Density Lipoprotein 130 mg/dL High Less Than 100 56 Urine Culture & 07/26/2011 [facility] Urine Culture NF1 [address] [place] [address] [phone] Lipid Profile 2011 [facility] Triglyceride 219 High 40- 20 (Trig/Chol/HDL) [address] mg/dL 0 [place], [place] [id number] [phone] Cholesterol 210 mg/dL High Less Than 200 58 High Density Lipoprotein 59 mg/dL 40-60 59 Cholesterol/HDL Ratio 3.56 AVERAGE 1-4.44 Low Density Lipoprotein 107 mg/dL High Less Than 100 60 Liver Function 2011 [facility] Total Protein 6.4 GM/DL 6.2-8.[address] [place] [address] [phone] Albumin 3.8 GM/DL 3.2-5.2 Globulin 2.6 GM/DL 2-4 Albumin/Globulin Ratio 1.5 1-3 Bilirubin Total 0.5 mg/dL 0.4-1.5 61 Bilirubin Direct 0.0 mg/dL Low 0.1-0.5 Indirect Bilirubin (SEE NOTE) mg/dL 0.3-1.0 62 Alkaline Phosphatase 78 U/L 30-110 Alt (SGPT) 14 U/L 14-54 Ast (Sgot) 17 U/L 12-42 Vitamin D, 25 2011 [facility] 25-Hydroxy Vitamin <4.0 ng/ mL () Hydroxy [address] D2 [place] [address] [phone] 25-Hydroxy Vitamin D3 35 ng/mL () 25-Hydroxy Vitamin D Total 35 ng/mL () 63 Vitamin D 1,25 2011 [facility] Vitamin D, 1,25 26 pg/mL 18-78 64 And Vitamin [address] Dihydroxy D,2 [place] [address] [phone] CBC With 2011 [facility] White Blood 7.5 CUMM 4.8-10.8 Manual Diff [address] [place] [address] [phone] Red Cell Count 4.59 CUMM 4.2-5.4 Hemoglobin 14.0 g/dL 12.0-16.0 Hematocrit 40 % 35-47 Mean Corpuscular Volume 86 um3 79-97 Mean Corpuscular Hemoglob 31 pg 27-31 Mean Corpuscular HGB Cone 35 g/dL 32-36 Redcell Distribution WDTH 14 % 10.5-15 Platelet Count 290 CUMM 150-450 Mean Platelet Volume 8.4 um3 7.4-10.4 Polysegmented Neutrophil 82 % 38-83 Band Neutrophil 1 % 0-8 Lymphocyte 12 % Low 25-47 Monocyte 2 % 0-13 Eosinophil 3 % 0-6 Absolute Neutrophil Count 6.2 Anisocytosis SLIGHT Laboratory test 2011 [facility] TSH 1.52 MIU/ML 0.34- 5.[address] [place] [address] [phone] Comp Metabolic 2011 [facility] Sodium 139 mmol/L 135- [address] [place] [address] [phone] Potassium 3.4 mmol/L Low 3.5-5.0 Chloride 100 mmol/L Low 101-111 Co2 (Carbon Dioxide) 30.0 mmol/L 22-32 Anion Gap 9.0 mmol/L 2-11 65 Glucose 105 mg/dL High 70-100 BUN 6 mg/dL 6-24 Creatinine 0.80 mg/dL 0.50-1.40 One Over Creatinine 1.20 BUN/Creatinine Ratio 7.5 Low 8-20 Calcium 9.1 mg/dL 8.1-9.9 Total Protein 6.5 GM/DL 6.2-8.1 Albumin 3.8 GM/DL 3.2-5.2 Globulin 2.7 GM/DL 2-4 Albumin/Globulin Ratio 1.4 1-3 Bilirubin Total 0.5 mg/dL 0.4-1.5 66 Alkaline Phosphatase 75 U/L 30-110 Alt (SGPT) 16 U/L 14-54 Ast (Sgot) 17 U/L 12-42 eGFR Non- 71.5 > 60 eGFR 92.0 > 60 67 Surgical 07/03/2011 [facility] Surgical [address] Pathology <SEE NOTE> [place] [address] [phone] 1 Because ethnic data is not always readily available, this report includes an eGFR for both -Americans and non- Americans. The National Kidney Disease Education Program (NKDEP) does not endorse the use of the MDRD equation for patients that are not between the ages of 18 and 70, are , have extremes of body size, muscle mass, or nutritional status, or are non- or non-. According to the National Kidney Foundation, irrespective of diagnosis, the stage of the disease is based on the level of kidney function: Stage Description GFR(mL/min/1.73 m(2)) 1 Kidney damage with normal or decreased GFR 90 2 Kidney damage with mild decrease in GFR 60-89 3 Moderate decrease in GFR 30-59 4 Severe decrease in GFR 15-29 5 Kidney failure <15 (or dialysis) 2 SEE RESULT BELOW Name: SAMANTA VELÁSQUEZ : [address]: Cindi Chin MD Acct: [id number] Unit: [id number] AGE: 73 Location: ED Re08/13/18 SEX: F Status: REG ER SPEC: [id number] YONI: 08/13/18-[address]: Edwar RAMIREZ REQ: [id number] RECD: 08/13/18 STATUS: ANTONIO WHATLEY DR: Nirav Powell MD _ SOURCE: BLOOD,VENO SPDESC: ORDERED: Blood Cult COMMENTS: Patient is On Antibiotics? NO Procedure Result Reported Site Aerobic Culture Bottle Final 08/18/18- 0127 ML No Growth Day 5 Anaerobic Culture Bottle Final 08/18/18- 0127 ML No Growth Day 5 * ML - Main Lab . END OF REPORT DEPARTMENT OF PATHOLOGY, [address] [place] [address] Mike Delarosa M.D. Director [facility] # [id number] 3 SEE RESULT BELOW Name: SAMANTA VELÁSQUEZ : [address]: Teresa Cano MD Acct: [id number] Unit: [id number] AGE: 72 Location: [facility] Re10/15/17 SEX: F Status: REG REF SPEC: [id number] YONI: 10/15/[address]: Teresa Cano MD REQ: [id number] RECD: 10/15/171363 STATUS: COMP _ SOURCE: SPUTUM,EXP SPDESC: ORDERED: Sputum Cult/GS Procedure Result Reported Site Sputum Smear Final 10/16/17- 18 ML 4+ Neutrophils 2+ Epithelial Cells Mixed Morphotypes, resembling Normal Emmanuel Sputum Culture Final 10/17/17- 950 ML Organism 1 NORMAL EMMANUEL Quantity 3+ * ML - MAIN LAB ([facility]) . END OF REPORT * ML=Testing performed at Main Lab DEPARTMENT OF PATHOLOGY, [address] [place] [address] Mike Delarosa M.D. Director [facility] # [id number] 4 Desirable <150 Borderline high 150-199 High 200-499 Very High >500 5 Desirable <200 Borderline high 200-239 High >239 6 Low <40 Desirable: 40-60 High: >60 7 Desirable: <100 mg/dL Near Optimal: 100-129 mg/dL Borderline High: 130-159 mg/dL High: 160-189 mg/dL Very High: >189 mg/dL 8 Because ethnic data is not always readily available, this report includes an eGFR for both -Americans and non- Americans. The National Kidney Disease Education Program (NKDEP) does not endorse the use of the MDRD equation for patients that are not between the ages of 18 and 70, are , have extremes of body size, muscle mass, or nutritional status, or are non- or non-. According to the National Kidney Foundation, irrespective of diagnosis, the stage of the disease is based on the level of kidney function: Stage Description GFR(mL/min/1.73 m(2)) 1 Kidney damage with normal or decreased GFR 90 2 Kidney damage with mild decrease in GFR 60-89 3 Moderate decrease in GFR 30-59 4 Severe decrease in GFR 15-29 5 Kidney failure <15 (or dialysis) 9 Because ethnic data is not always readily available, this report includes an eGFR for both -Americans and non- Americans. The National Kidney Disease Education Program (NKDEP) does not endorse the use of the MDRD equation for patients that are not between the ages of 18 and 70, are , have extremes of body size, muscle mass, or nutritional status, or are non- or non-. According to the National Kidney Foundation, irrespective of diagnosis, the stage of the disease is based on the level of kidney function: Stage Description GFR(mL/min/1.73 m(2)) 1 Kidney damage with normal or decreased GFR 90 2 Kidney damage with mild decrease in GFR 60-89 3 Moderate decrease in GFR 30-59 4 Severe decrease in GFR 15-29 5 Kidney failure <15 (or dialysis) 10 Because ethnic data is not always readily available, this report includes an eGFR for both -Americans and non- Americans. The National Kidney Disease Education Program (NKDEP) does not endorse the use of the MDRD equation for patients that are not between the ages of 18 and 70, are , have extremes of body size, muscle mass, or nutritional status, or are non- or non-. According to the National Kidney Foundation, irrespective of diagnosis, the stage of the disease is based on the level of kidney function: Stage Description GFR(mL/min/1.73 m(2)) 1 Kidney damage with normal or decreased GFR 90 2 Kidney damage with mild decrease in GFR 60-89 3 Moderate decrease in GFR 30-59 4 Severe decrease in GFR 15-29 5 Kidney failure <15 (or dialysis) 11 SEE RESULT BELOW Name: SAMANTA VELÁSQUEZ : [address]: Sonia Cobb DO Acct: [id number] Unit: [id number] AGE: 70 Location: [place] [address] Re11/25/15 Dis: 11/28/15 SEX: F Status: DIS IN SPEC: [id number] YONI: 11/25/[address]: Libby Oconnell MD REQ: [id number] RECD: 11/25/15 STATUS: ANTONIO WHATLEY DR: [facility] Maranda Powell MD _ SOURCE: BLOOD,VENO SPDESC: ORDERED: Blood Cult Procedure Result Reported Site Aerobic Culture Bottle Final 15- 1416 ML No Growth Day 5 Anaerobic Culture Bottle Final 15- 1416 ML No Growth Day 5 * ML - MAIN LAB ([facility]) . END OF REPORT * ML=Testing performed at Main Lab DEPARTMENT OF PATHOLOGY, [address] [place] [address] Mike Delarosa M.D. Director [facility] # [id number] 12 SEE RESULT BELOW Name: SAMANTA VELÁSQUEZ : [address]: Sonia Cobb DO Acct: [id number] Unit: [id number] AGE: 70 Location: [place] [address] Re11/25/15 SEX: F Status: ADM IN SPEC: [id number] YONI: 11/25/15 [facility] [address]: Libby Oconnell MD REQ: [id number] RECD: 11/25/15 STATUS: ANTONIO WHATLEY DR: [facility] Maranda Powell MD _ SOURCE: URINE SPDESC: ORDERED: Urine Culture Procedure Result Reported Site Urine Culture Final 11/27/15915 ML Organism 1 NORMAL EMMANUEL [facility] Count 1-10,000 (Few) CFU/ML * ML - MAIN LAB ([facility]) . END OF REPORT * ML=Testing performed at Main Lab DEPARTMENT OF PATHOLOGY, [address] [place] [address] Mike Delarosa M.D. Director [facility] # [id number] 13 Reference Range and Interpretation: TnI (ng/mL) Interpretation Less Than 0.03 ng/mL Not supportive of diagnosis of MS 0.03 - 0.50 ng/mL Indeterminate: suggest serial studies if clinically indicated. Greater than 0.5 ng/mL Consistent with diagnosis of MS 14 Because ethnic data is not always readily available, this report includes an eGFR for both -Americans and non- Americans. The National Kidney Disease Education Program (NKDEP) does not endorse the use of the MDRD equation for patients that are not between the ages of 18 and 70, are , have extremes of body size, muscle mass, or nutritional status, or are non- or non-. According to the National Kidney Foundation, irrespective of diagnosis, the stage of the disease is based on the level of kidney function: Stage Description GFR(mL/min/1.73 m(2)) 1 Kidney damage with normal or decreased GFR 90 2 Kidney damage with mild decrease in GFR 60-89 3 Moderate decrease in GFR 30-59 4 Severe decrease in GFR 15-29 5 Kidney failure <15 (or dialysis) 15 Critical Result K:2.7 Called to [id number] at: 14:37:14 by:[id number] Read back by:[id number] 16 [place] Severe Sepsis and Septic Shock Management Bundle Measure requires all lactic acids initially measuring >2.0mmol/L be repeated. 17 Reference Range and Interpretation: TnI (ng/mL) Interpretation Less Than 0.03 ng/mL Not supportive of diagnosis of MS 0.03 - 0.50 ng/mL Indeterminate: suggest serial studies if clinically indicated. Greater than 0.5 ng/mL Consistent with diagnosis of MS 18 Because ethnic data is not always readily available, this report includes an eGFR for both -Americans and non- Americans. The National Kidney Disease Education Program (NKDEP) does not endorse the use of the MDRD equation for patients that are not between the ages of 18 and 70, are , have extremes of body size, muscle mass, or nutritional status, or are non- or non-. According to the National Kidney Foundation, irrespective of diagnosis, the stage of the disease is based on the level of kidney function: Stage Description GFR(mL/min/1.73 m(2)) 1 Kidney damage with normal or decreased GFR 90 2 Kidney damage with mild decrease in GFR 60-89 3 Moderate decrease in GFR 30-59 4 Severe decrease in GFR 15-29 5 Kidney failure <15 (or dialysis) 19 Desirable <150 Borderline high 150-199 High 200-499 Very High >500 20 Desirable <200 Borderline high 200-239 High >239 21 Low <40 Desirable: 40-60 High: >60 22 Desirable: <100 mg/dL Near Optimal: 100-129 mg/dL Borderline High: 130-159 mg/dL High: 160-189 mg/dL Very High: >189 mg/dL 23 PT IS FASTING 24 Desirable <150 Borderline high 150-199 High 200-499 Very High >500 25 Desirable <200 Borderline high 200-239 High >239 26 Low <40 Desirable: 40-60 High: >60 27 Desirable <100 Near Optimal 100-129 Borderline high 130-159 High 160-189 Very High >189 28 Because ethnic data is not always readily available, this report includes an eGFR for both -Americans and non- Americans. The National Kidney Disease Education Program (NKDEP) does not endorse the use of the MDRD equation for patients that are not between the ages of 18 and 70, are , have extremes of body size, muscle mass, or nutritional status, or are non- or non-. According to the National Kidney Foundation, irrespective of diagnosis, the stage of the disease is based on the level of kidney function: Stage Description GFR(mL/min/1.73 m(2)) 1 Kidney damage with normal or decreased GFR 90 2 Kidney damage with mild decrease in GFR 60-89 3 Moderate decrease in GFR 30-59 4 Severe decrease in GFR 15-29 5 Kidney failure <15 (or dialysis) 29 REFERENCE VALUE 25-HYDROXY D TOTAL (D2+D3) Optimum levels in the healthy population are 20-50, patients with bone disease may benefit from higher levels within this range. Test Performed by: [address] [address] [employer] Intelligence: Enrico A. Ramírez, M.D. 30 Normal Range 180 to 914 Indeterminate Range 145 to 180 Deficient Range <145 31 RUN DATE: 11/05/14 [facility] LAB LIVE PAGE 1 RUN TIME: 1057 [address] [place], [place] [address] Specimen Inquiry Name: SAMANTA VELÁSQUEZ : [address]: Daniel Peñaloza MD Acct: [id number] Unit: [id number] AGE: 69 Location: RESP Re11/01/14 SEX: F Status: REG REF SPEC: [id number] YONI: 11/03/14 [facility] [address]: Daniel Peñaloza MD REQ: [id number] RECD: 11/03/14 STATUS: ANTONIO WHATLEY DR: Maranda Powell MD _ SOURCE: SPUTUM,IND SPDESC: ORDERED: Sputum Cult/GS Procedure Result Verified Site Sputum Smear Final 11/03/14- 1551 ML 3+ Epithelial Cells 1+ Neutrophils Mixed Morphotypes, resembling Normal Emmanuel Sputum Culture Final 11/05/14- 1056 ML Organism 1 NORMAL EMMANUEL Quantity 3+ END OF REPORT * ML=Testing performed at Main Lab DEPARTMENT OF PATHOLOGY, [facility] [employer] [place] [address] Mike Delarosa M.D. Director [place] # [id number] 32 RUN DATE: 11/04/14 [facility] LAB LIVE PAGE 1 RUN TIME: 1146 [facility] [address] [place] [address] Specimen Inquiry Name: TIFFANIEJENNAGERI : [address]: Daniel Peñaloza MD Acct: [id number] Unit: [id number] AGE: 69 Location: RESP Re11/02/14 SEX: F Status: REG REF SPEC: [id number] YONI: 11/02/[address]: Daniel Peñaloza MD REQ: [id number] RECD: 11/02/14 STATUS: ANTONIO WHATLEY DR: Maranda Powell MD _ SOURCE: SPUTUM,IND SPDESC: ORDERED: Sputum Cult/GS QUERIES: [employer] Number [id number] Procedure Result Verified Site Sputum Smear Final 11/02/14- 1516 ML 1+ Neutrophils 2+ Epithelial Cells Mixed Morphotypes, resembling Normal Emmanuel Sputum Culture Final 11/04/14- 1146 ML Organism 1 NORMAL EMMANUEL Quantity 3+ END OF REPORT * ML=Testing performed at Main Lab DEPARTMENT OF PATHOLOGY, [address] [place] [address] Mike Delarosa M.D. Director [facility] # [id number] 33 SOURCE: SPUTUM Mycobacteria specimen plated for culture, volume inadequate for optimal recovery. MYCOBACTERIAL CULTURE FINAL No Growth after 60 days of incubation. Test Performed by: [facility] - [address] [address] [employer]: Enrico Ramírez M.D. 34 RUN DATE: 11/02/14 [facility] LAB LIVE PAGE 1 RUN TIME: [address] [place] [address] Specimen Inquiry Name: TREVORGERI : [address]: Daniel Peñaloza MD Acct: [id number] Unit: [id number] AGE: 69 Location: RESP Re11/02/14 SEX: F Status: REG REF SPEC: [id number] YONI: 11/02/[address] [facility] [address]: Daniel Peñaloza MD REQ: [id number] RECD: 11/02/14 STATUS: ANTONIO WHATLEY DR: Maranda Powell MD _ SOURCE: RESP SPDESC: ORDERED: Acid Fast Stain Procedure Result Verified Site Acid Fast Stain - Direct Final 11/02/14- 1518 ML AFB Smear Result No Acid Fast Bacillus Present (Negative) Preparation By Direct Smear END OF REPORT * ML=Testing performed at Main Lab DEPARTMENT OF PATHOLOGY, [facility] [employer] [place] [address] Mike Delarosa M.D. Director [facility] # [id number] 35 RUN DATE: 11/03/14 [facility] LAB LIVE PAGE 1 RUN TIME: 855 [facility] [address] [place], [place] [address] Specimen Inquiry Name: SAMANTA VELÁSQUEZ : [address]: Daniel Peñaloza MD Acct: [id number] Unit: [id number] AGE: 69 Location: RESP Re11/01/14 SEX: F Status: REG REF SPEC: [id number] YONI: 11/01/[address] [facility] [address]: Daniel Peñaloza MD REQ: [id number] RECD: 11/01/14 STATUS: COMP CHACORTA DR: Maranda Powell MD _ SOURCE: SPUTUM,EXP SPDESC: ORDERED: Sputum Cult/GS Procedure Result Verified Site Sputum Smear Final 11/01/14- 1433 ML 4+ Epithelial Cells 3+ Neutrophils 4+ Gram Positive Cocci 2+ Yeast 2+ Gram Positive Bacilli 2+ Gram Negative Bacilli Sputum Culture Final 11/03/14- 0856 ML Organism 1 NORMAL EMMANUEL Quantity 3+ END OF REPORT * ML=Testing performed at Main Lab DEPARTMENT OF PATHOLOGY, [facility] [employer] [place], [place] [address] Mike Delarosa M.D. Director DOREEN # [id number] RUN DATE: 11/01/14 [facility] LAB LIVE PAGE 1 RUN TIME: 1267 [facility] [place], [place] [address] Specimen Inquiry Name: SAMANTA VELÁSQUEZ : [address]: Daniel Peñaloza MD Acct: [id number] Unit: [id number] AGE: 69 Location: RESP Re11/01/14 SEX: F Status: REG REF SPEC: [id number] YONI: 11/01/14 [facility] [address]: Daniel Peñaloza MD REQ: [id number] RECD: 11/01/14 STATUS: ANTONIO WHATLEY DR: Maranda Powell MD _ SOURCE: RESP SPDESC:SPUTUM ORDERED: Acid Fast Stain COMMENTS: SPUTUM Procedure Result Verified Site Acid Fast Stain - Direct Final 11/01/14- 1453 ML AFB Smear Result No Acid Fast Bacillus Present (Negative) Preparation By Direct Smear Due to limited sensitivity of the smear, results should be used as an adjunct in evaluating the patient's status and cultural examination is highly recommended for diagnosis. END OF REPORT * ML=Testing performed at Main Lab DEPARTMENT OF PATHOLOGY, [facility] [place] [address] Mike Delarosa M.D. Director [facility] # [id number] SOURCE: SPUTUM Mycobacteria specimen plated for culture, volume inadequate for optimal recovery. MYCOBACTERIAL CULTURE FINAL No Growth after 60 days of incubation. Test Performed by: [facility] - [address] [address] Counter Intelligence: Enrico Ramírez M.D. 38 RUN DATE: 06/29/14 [facility] LAB LIVE PAGE 1 RUN TIME: 6856 [facility] [place], [place] [address] Specimen Inquiry Name: SAMANTA VELÁSQUEZ : [address]: Edwar Wick MD Acct: [id number] Unit: [id number] AGE: 68 Location: [facility] Re06/25/14 SEX: F Status: REG REF SPEC: [id number] YONI: 06/25/14- SUBM DR: Edwar Wick MD REQ: [id number] RECD: 06/25/14 STATUS: MIKEL WHATLEY DR: Maranda Powell MD _ ORDERED: LEVEL IV FINAL DIAGNOSIS Skin, right medial canthus, excisional biopsy: Verrucous keratosis, inflamed. CLINICAL HISTORY Irritating skin papule. GROSS DESCRIPTION The specimen is received in formalin labeled Samanta Velásquez, Excision Lesion Right Medial Canthus and consists of a 0.8 x 0.3 cm. bashir-diallo unoriented skin ellipse with a central 0.8 x 0.4 x 0.4 cm. bashir-diallo verrucoid nodule. The specimen is inked , trisected, and submitted entirely in one cassette. Signed (signature on file) Verenice Crawley MD 1423 END OF REPORT * ML=Testing performed at Main Lab DEPARTMENT OF PATHOLOGY, [address] [place] [address] Mike Delarosa M.D. Director [facility] # [id number] HDL Interpretation: Undesirable: High Risk: Less than 40 mg/dL Desirable: Low Risk: Greater than 60 mg/dL 40 LDL Interpretation: Low Risk Optimal Level: LDL Less than 100 mg/dL Near or Above Optimal: LDL 100-129 mg/dL Borderline High Risk: LDL 130-159 mg/dL High Risk: LDL 160-189 mg/dL Very High Risk: LDL Greater than 189 mg/dL 41 -- REFERENCE VALUE -- 25-HYDROXY D TOTAL (D2+D3) Optimum levels in the healthy population are 20-50, patients with bone disease may benefit from higher levels within this range. Test Performed by: [place] [address] Counter Intelligence: Ricci Soto III, M.D. 42 Because ethnic data is not always readily available, this report includes an eGFR for both -Americans and non- Americans. The National Kidney Disease Education Program (NKDEP) does not endorse the use of the MDRD equation for patients that are not between the ages of 18 and 70, are , have extremes of body size, muscle mass, or nutritional status, or are non- or non-. According to the National Kidney Foundation, irrespective of diagnosis, the stage of the disease is based on the level of kidney function: Stage Description GFR(mL/min/1.73 m(2)) 1 Kidney damage with normal or decreased GFR 90 2 Kidney damage with mild decrease in GFR 60-89 3 Moderate decrease in GFR 30-59 4 Severe decrease in GFR 15-29 5 Kidney failure <15 (or dialysis) 43 Decreased gamma globulin consistent with congenital or acquired hypogammaglobulinemia. Suggest specific immunoglobulin determinations. 44 Normal serum immunofixation electrophoretic pattern. No monoclonal protein detected. 45 @Sample frozen by [id number] at 1637 on 03/17/13. 46 HDL Interpretation: Undesirable: High Risk: Less than 40 MG/DL Desirable: Low Risk: Greater than 60 MG/DL 47 LDL Interpretation: Low Risk Optimal Level: LDL Less than 100 MG/DL Near or Above Optimal: LDL 100-129 MG/DL Borderline High Risk: LDL 130-159 MG/DL High Risk: LDL 160-189 MG/DL Very High Risk: LDL Greater than 189 MG/DL 48 Because ethnic data is not always readily available, this report includes an eGFR for both -Americans and non- Americans. The National Kidney Disease Education Program (NKDEP) does not endorse the use of the MDRD equation for patients that are not between the ages of 18 and 70, are , have extremes of body size, muscle mass, or nutritional status, or are non- or non-. According to the National Kidney Foundation, irrespective of diagnosis, the stage of the disease is based on the level of kidney function: Stage Description GFR(mL/min/1.73 m(2)) 1 Kidney damage with normal or decreased GFR 90 2 Kidney damage with mild decrease in GFR 60-89 3 Moderate decrease in GFR 30-59 4 Severe decrease in GFR 15-29 5 Kidney failure <15 (or dialysis) 49 -- REFERENCE VALUE -- 25-HYDROXY D TOTAL (D2+D3) Optimum levels in the normal population are 25-80 Test Performed by: [address] [address] Counter Intelligence: Ricci Soto III, M.D. 50 RUN DATE: 02/01/12 [facility] NMI LIVE PAGE 1 RUN TIME: 1047 Specimen Inquiry RUN USER: INTERFACE Name: SAMANTA VELÁSQUEZ Status: REG REF Re01/30/12 Age/Sex: 66/F Unit#: [id number] Location: [facility] : 43 SPEC #: [id number] YONI: 01/30/12-1505 STATUS: COMP REQ #: [id number] RECD: 01/30/[address] [facility] [address]: Vicenta Cui MD SOURCE: URINE ENTR: 01/30/12 [facility] [address]: SPDREGULO: ORDERED: URINE C S QUERIES: MEDENT REQUISITION # [id number] SPECIMEN DESCRIPTION: URINE, RANDOM ACT WKST: UR 02/01/12 #1 Procedure Result Verified Site > URINE CULTURE SENSITIVI Final 02/01/12- 1047 ML SCANT NORMAL URETHRAL OR PERINEAL EMMANUEL - [facility] Permit #[id number] [address] [place] [address] DEPARTMENT OF PATHOLOGY, [address] [place] [address] [facility] Permit #[id number] Mike Delarosa M.D. Director Jose De Jesus Russell M.D. Chief Dispatcher Service 51 Anion gap measurement may be of limited value in the presence of any alkalosis, especially in a combined acid base disorder. . 52 A metabolite of Naproxen, O-desmethylnaproxen, has been shown to interfere with the Jenlulu-Anton Ruiz method for measuring total bilirubin. Samples from patients who have taken Naproxen have shown spurious elevation in total bilirubin levels. 53 Because ethnic data is not always readily available, this report includes an eGFR for both -Americans and non- Americans. The National Kidney Disease Education Program (NKDEP) does not endorse the use of the MDRD equation for patients that are not between the ages of 18 and 70, are , have extremes of body size, muscle mass, or nutritional status, or are non- or non-. According to the National Kidney Foundation, irrespective of diagnosis, the stage of the disease is based on the level of kidney function: Stage Description GFR(mL/min/1.73 m(2)) 1 Kidney damage with normal or decreased GFR 90 2 Kidney damage with mild decrease in GFR 60-89 3 Moderate decrease in GFR 30-59 4 Severe decrease in GFR 15-29 5 Kidney failure <15 (or dialysis) 54 CHOLESTEROL INTERPRETATION: Desirable: Less than 200 MG/DL Borderline-High Risk: 200-239 MG/DL High-Risk: 240 MG/DL and over 55 HDL INTERPRETATION: Undesirable: High Risk: Less than 40 MG/DL Desirable: Low Risk: Greater than 60 MG/DL 56 LDL INTERPRETATION: Low Risk Optimal Level: LDL Less than 100 MG/DL Near or Above Optimal: LDL 100-129 MG/DL Borderline High Risk: LDL 130-159 MG/DL High Risk: LDL 160-189 MG/DL Very High Risk: LDL Greater than 189 MG/DL 57 SPECIMEN CONTAINS NORMAL URETHRAL OR PERINEAL EMMANUEL AND DOES NOT SUGGEST URINARY TRACT INFECTION 58 CHOLESTEROL INTERPRETATION: Desirable: Less than 200 MG/DL Borderline-High Risk: 200-239 MG/DL High-Risk: 240 MG/DL and over 59 HDL INTERPRETATION: Undesirable: High Risk: Less than 40 MG/DL Desirable: Low Risk: Greater than 60 MG/DL 60 LDL INTERPRETATION: Low Risk Optimal Level: LDL Less than 100 MG/DL Near or Above Optimal: LDL 100-129 MG/DL Borderline High Risk: LDL 130-159 MG/DL High Risk: LDL 160-189 MG/DL Very High Risk: LDL Greater than 189 MG/DL 61 A metabolite of Naproxen, O-desmethylnaproxen, has been shown to interfere with the Jendrassik-Mayela method for measuring total bilirubin. Samples from patients who have taken Naproxen have shown spurious elevation in total bilirubin levels. 62 UNABLE TO CALCULATE IND.BILI D.BILI IS <0.1 Please note updated reference range, effective 06/22/10 63 -- REFERENCE VALUE -- 25-HYDROXY D TOTAL (D2+D3) Optimum levels in the normal population are 25-80 Test Performed by: [facility] Dpt of Lab Med and Pathology [address] [place] [address] Counter Intelligence: Ricci Soto III, M.D. 64 Test Performed by: [facility] Dpt of Lab Med and Pathology [address] [place] [address] Counter Intelligence: Ricci Soto III, M.D. 65 Anion gap measurement may be of limited value in the presence of any alkalosis, especially in a combined acid base disorder. . 66 A metabolite of Naproxen, O-desmethylnaproxen, has been shown to interfere with the Jendrrichardik-Anton Ruiz method for measuring total bilirubin. Samples from patients who have taken Naproxen have shown spurious elevation in total bilirubin levels. 67 Because ethnic data is not always readily available, this report includes an eGFR for both -Americans and non- Americans. The National Kidney Disease Education Program (NKDEP) does not endorse the use of the MDRD equation for patients that are not between the ages of 18 and 70, are , have extremes of body size, muscle mass, or nutritional status, or are non- or non-. According to the National Kidney Foundation, irrespective of diagnosis, the stage of the disease is based on the level of kidney function: Stage Description GFR(mL/min/1.73 m(2)) 1 Kidney damage with normal or decreased GFR 90 2 Kidney damage with mild decrease in GFR 60-89 3 Moderate decrease in GFR 30-59 4 Severe decrease in GFR 15-29 5 Kidney failure <15 (or dialysis) 68 ---- RUN DATE: 07/04/11 [facility] NMI LIVE PAGE 1 RUN TIME: 1359 Specimen Inquiry RUN USER: INTERFACE -- Name: SAMANTA VELÁSQUEZ Status: REG REF Re07/03/11 Age/Sex: 65/F Unit#: [id number] Location: [facility] : 43 -- Specimen: [id number] [facility] Spec Date: 07/03/[address]: Donn mcgrath MD Spec Type: SURGICAL P Received: 07/03/11-3979 Copies to: Vicenta Cui MD SPECIMEN 1) RANDOM COLON BIOPSIES 2) ASCENDING COLON THICKENED FOLD BIOPSIES HISTORY POST-OP DIAGNOSIS: To cecum, random biopsy and biopsy fold ascending colo n CLINICAL INFORMATION: Diarrhea; change in bowel habits GROSS DESCRIPTION 1) The specimen is received in formalin labelled Samanta Velásquez, Random Colon Biopsies, and consists of three fragments of brown tissue each measuring 0.8 x 0.2 x 0.1 cm. Submitted entirely, one cassette labelled 1. 2) The specimen is received in formalin labelled Samanta Velásquez, Ascending Colon Thickened Fold Biopsies, and consists of three fragments of brown tissue measuring in aggregate 0.7 x 0.4 x 0.2. cm. Submitted entirely, one cassette labelled 2. DIAGNOSIS 1) Random colon, biopsy: Fragments of large bowel mucosa with no significant pathologic changes. 2) Ascending colon, biopsy: Large bowel mucosa with focal hyperplastic change. Signed Electronically by: JOSE DE JESUS RUSSELL 07/04/11 8743 -- -- DEPARTMENT OF PATHOLOGY, [address] [place] [address] [facility] Permit #[id number] Onel Acharya M.D. County Commissioner Dir sarha -- Procedures Date Code Description Status 05/06/2018 [id number] Mammogram Completed 08/03/2016 [id number] Mammogram Completed 02/06/2016 87991 Polysomnography Sleep Staging 4+ Parameters W/Cpap Completed 11/26/2015 73098 EKG, Interpretation Only Completed 07/27/2015 [id number] Mammogram Completed 11/22/2014 59018937 Mammogram Completed 11/22/2014 [id number] Bone Mineral Density Test Completed 11/02/2014 97004 Spirometry Incl Graphic Record Completed 11/02/2014 85873 Diffusing Capacity Completed 09/09/2014 15376 Pulmonary Function><Bronchodil Completed 09/09/2014 13060 Plethysmography Determination Lung Volumes & Per Completed Airway Resist 09/09/2014 87509 Diffusing Capacity Completed 02/18/2014 62237 EKG Tracing & Interpretation Completed 11/19/2013 01885 X-Ray Spine Cervical Four Views Completed 11/19/2013 73533 Rad Exam; Spine, Cervical Completed 11/19/2013 68414 Inject/Drain Joint/Bursa Major W/O US Completed 11/16/2013 [id number] Mammogram Completed 11/10/2013 97166 EKG Tracing & Interpretation Completed 11/14/2012 85184514 Mammogram Completed 11/05/2012 17106 EKG Tracing & Interpretation Completed 01/15/2012 49634 Noninvasive Ear Or Pulse Oximetry For Oxygen Completed Saturation 07/03/2011 13078060 Colonoscopy Completed 06/06/2011 [id number] Bone Mineral Density Test Completed 06/06/2011 87502528 Mammogram Completed 05/24/2011 02640 EKG Tracing & Interpretation Completed 06/21/2010 73055 EKG Tracing & Interpretation Completed 02/09/2010 60593 EKG Tracing & Interpretation Completed 01/17/2010 94338526 Mammogram Completed 01/09/2010 84036 EKG Tracing & Interpretation Completed 01/06/2009 36506 EKG Tracing & Interpretation Completed 12/29/2007 42146353 Mammogram Completed 12/29/2007 423833978 Bone Mineral Density Test Completed 11/27/2007 41891 EKG Tracing & Interpretation Completed 10/29/2006 32071 EKG Tracing & Interpretation Completed 02/24/2002 089573469 Diabetic Retinal Eye Exam Completed Encounters Type Date Location Provider Dx Diagnosis Office Visit 12/24/2018 Orthopedic k Kaye, M50.13 Cervical disc 2:00p Services Of Alvina Sykes disorder w radiculopathy, cervicothor region Office Visit 12/19/2018 [facility] Dermatology Delilah Correia, L85.3 Xerosis cutis 11:20a MD Office Visit 10/29/2018 [facility] Internal Elyse Sagastume J47.1 Bronchiectasis with 11:00a Medicine N.P. (acute) exacerbation I10 Essential (primary) hypertension Office Visit 10/21/2018 Pulmonology And Teresa J47.1 Bronchiectasis with 11:30a Sleep Services Of MD Rachael (acute) exacerbation [facility] G47.33 Obstructive sleep apnea (adult) (pediatric) J45.909 Unspecified asthma, uncomplicated Office Visit 10/15/2018 10:00a [facility] Internal Elyse Sagastume, I10 Essential ( primary) Medicine N.P. hypertension R11.0 Nausea J47.1 Bronchiectasis with (acute) exacerbation Office Visit 10/07/2018 [facility] Dermatology Delilah Correia, L85.3 Xerosis cutis 11:40a MD Office Visit 09/22/2018 [facility] Internal Elyse Sagastume, L03.116 Cellulitis of 3:40p Medicine N.P. left lower limb L03.115 Cellulitis of right lower limb Z23 Encounter for immunization Office Visit 08/14/2018 10:40a [facility] Internal Elyse Sagastume, L03.116 Cellulitis of Medicine N.P. 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 (acute) exacerbation Office Visit 01/22/2018 [facility] Internal Maranda R05 Cough 2:45p Medicine Luis M Powell M.D. Rd Office Visit 11/28/2017 [facility] Melecio Madsen47.1 Bronchiectasis with 10:20a Ozzie Powell M.D. (acute) exacerbation Office Visit 10/28/2017 Pulmonology And Jose Manuel Dutta.9 Bronchiectasis, 2:15p Sleep Services Of uncomplicated [facility] G47.33 Obstructive sleep apnea (adult) (pediatric) Office Visit 10/21/2017 [facility] Internal Elyse Sagastume, I10 Essential (primary ) 1:00p Medicine N.P. 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 w/o aura, not Services Of [facility] intractable, w/o stat migr G25.0 Essential tremor Z79.899 Other detention (current) drug therapy Office Visit 10/12/2016 10:45a Pulmonology And Teresa G47.33 Obstructive sleep Sleep Services Of MD Rachael apnea (adult) Candlemaking Laborer (pediatric) J47.9 Bronchiectasis, uncomplicated Office Visit 08/22/2016 10:00a [facility] Internal Elyse Sagastume, I10 Essential ( primary) Medicine N.P. hypertension J20.9 Acute bronchitis, unspecified J45.901 Unspecified asthma with (acute) exacerbation Office Visit 06/15/2016 1:40p [facility] Internal Surjit Alyce, J20.9 Acute bronchitis, Medicine COAL SAMPLER unspecified Z12.39 Encounter for oth screening for malignant neoplasm of breast Office Visit 05/23/2016 2:40p [facility] Internal Surjit Alyce, COAL SAMPLER J20.9 Acute bronchitis, Medicine unspecified Office Visit 05/07/2016 10:20a [facility] Internal Elyse Sagastume, F41.9 Anxiety disorder, Medicine N.P. unspecified I10 Essential (primary) hypertension F41.1 Generalized anxiety disorder Office Visit 05/07/2016 Tomas Barrosjonn, G43.709 Chronic migraine 11:30a Neurologic M.D. w/o aura, not Services Of [facility] intractable, w/o stat migr Z79.899 Other detention (current) drug therapy G25.0 Essential tremor Office Visit 04/11/2016 Pulmonology And Teresa J47.9 Bronchiectasis, 10:00a Sleep Services Of MD Rachael uncomplicated [facility] G47.33 Obstructive sleep apnea (adult) (pediatric) Office Visit 04/04/2016 10:00a [facility] Internal Elyse Sagastume, I10 Essential ( primary) Medicine N.P. hypertension J20.9 Acute bronchitis, unspecified J47.0 Bronchiectasis with acute lower respiratory infection Office Visit 02/27/2016 1:00p Pulmonology And Teresa G47.33 Obstructive sleep Sleep Services Of MD Rachael apnea (adult) Candlemaking Laborer (pediatric) J47.9 Bronchiectasis, uncomplicated E66.09 Other obesity due to excess calories Office Visit 02/09/2016 11:20a [facility] Internal Maranda G47.00 Insomnia, Ozzie Powell M.D. 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 unspecified organism G47.00 Insomnia, unspecified Office Visit 12/07/2015 10:00a Pulmonology And Teresa J18.9 Pneumonia, Sleep Services Of MD Rachael unspecified Candlemaking Laborer organism J47.9 Bronchiectasis, uncomplicated Office Visit 12/01/2015 1:20p [facility] Internal Maranda J18.9 Pneumonia, Ozzie Powell M.D. unspecified organism E87.6 Hypokalemia E83.42 Hypomagnesemia Office Visit 11/28/2015 8:15a [facility] Sonia J18.9 Pneumonia, Assoc,pc Reza, D.O. unspecified Hospitalists organism R77.8 Other specified abnormalities of plasma proteins A41.9 Sepsis, unspecified organism E87.6 Hypokalemia Office Visit 11/27/2015 8:15a [facility] Sonia J18.9 Pneumonia, Assoc,pc Reza, D.O. unspecified Hospitalists organism R77.8 Other specified abnormalities of plasma proteins A41.9 Sepsis, unspecified organism E87.6 Hypokalemia Office Visit 11/26/2015 8:14a [facility] Sonia J18.9 Pneumonia, Assoc,pc Reza, D.O. unspecified Hospitalists organism R41.0 Disorientation, unspecified A41.9 Sepsis, unspecified organism E87.6 Hypokalemia Office Visit 11/25/2015 [facility] Karina Hardy, J18.9 Pneumonia, 8:14a Assoc,kandace Sykes unspecified Hospitalists organism R41.0 Disorientation, unspecified A41.9 Sepsis, unspecified organism E87.6 Hypokalemia Office Visit 11/07/2015 [place] Marta Kim, G43.709 Chronic migraine 1:15p Neurologic M.D. w/o aura, not Services Of [facility] intractable, w/o stat migr G44.229 Chronic tension-type headache, not intractable G25.0 Essential tremor Office Visit 05/12/2015 11:00a [facility] Internal Maranda 401.1 Hypertension Medicine Onel Powell Benign 300.00 Anxiety State Unspec 793.80 Unspecified Abnormal Mammogram Office Visit 04/28/2015 11:15a Pulmonology And Daniel Peñaloza, 494.0 Bronchiectasis Sleep Services Of M.El Without Acute Candlemaking Laborer Exacerbation 477.2 Allergic Rhinitis Cat/Dog Office Visit 04/04/2015 1:00p [place] [facility] Marta Judy, 333.1 Tremor Essential Services Of [facility] M.DStephany & Other Forms 300.00 Anxiety State Unspec 346.70 Chronic Migraine W/Out Aura W/Out Mention Intractable Office Visit 03/31/2015 10:00a [facility] Internal Elyse Sagastume, 401.1 Hypertension Benign Medicine N.P. 724.5 Backache Unspec 719.44 Pain Joint Hand Office Visit 12/27/2014 11:30a Pulmonology And Daniel Peñaloza, 786.05 Shortness Of Sleep Services Of M.El Breath Candlemaking Laborer 494.0 Bronchiectasis Without Acute Exacerbation Office Visit 11/10/2014 11:00a [facility] Internal Maranda V70.0 Examination Medicine Onel Powell General Medical Routine AT [facility] Care Facility 300.00 Anxiety State Unspec V58.65 Long-Term(Current) Use Of Steroids V76.19 Screening Breast Exam Malignant Neoplasms Other 401.1 Hypertension Benign v03.82 Streptococcus Pneumoniae Vaccination Spec Other Office Visit 11/09/2014 10:00a Pulmonology And Daniel Peñaloza, 494.0 Bronchiectasis Sleep Services Of M.El Without Acute Candlemaking Laborer Exacerbation Office Visit 10/18/2014 1:30p Pulmonology And Daniel Peñaloza, 494.0 Bronchiectasis Sleep Services Of M.D. Without Acute Candlemaking Laborer Exacerbation 786.2 Cough 473.9 Sinusitis Chronic Unspec Office Visit 10/13/2014 9:15a [place] [facility] Marta Kim, 333.1 Tremor Essential Services Of Candlemaking Laborer M.D. & Other Forms 346.70 Chronic Migraine W/Out Aura W/Out Mention Intractable 728.85 Spasm Muscle 300.00 Anxiety State Unspec Office Visit 10/06/2014 1:30p [facility] Internal Surjit Mead, 112.0 Candidiasis Mouth Medicine COAL SAMPLER V04.81 Need For Prophylactic Vaccination & Inoculation/Influenza Office Visit 09/08/2014 1:00p Pulmonology And Daniel Peñaloza, 494.1 Bronchiectasis With Sleep Services Of M.D. Acute Exacerbation [facility] 786.05 Shortness Of Breath Office Visit 09/02/2014 10:20a [facility] Internal Elyse Sagastume, 494.1 Bronchiectasis With Medicine N.P. Acute Exacerbation Office Visit 08/23/2014 10:20a [facility] Internal Elyse Sagastume, 311 Depressive Disorder Medicine N.P. Not Elsewhere Spec 494.1 Bronchiectasis With Acute Exacerbation Office Visit 07/19/2014 1:45p [place] Marta Kim, 333.1 Tremor Essential Services Of [facility] M.D. & Other Forms 346.70 Chronic Migraine W/Out Aura W/Out Mention Intractable 728.85 Spasm Muscle Office Visit 04/28/2014 11:40a [facility] Internal Vicenta Cui, 715.04 Osteoarthrosis Medicine M.D., FACP Generalized Hand 300.00 Anxiety State Unspec 494.0 Bronchiectasis Without Acute Exacerbation Office Visit 03/31/2014 10:40a [facility] Internal Vicenta Cui, 494.0 Bronchiectasis Medicine M.D., FACP Without Acute Exacerbation Office Visit 02/18/2014 9:40a [facility] Internal Vicenta Cui, V72.84 Examination Medicine M.D., FACP Preoperative Unspec 401.1 Hypertension Benign 494.0 Bronchiectasis Without Acute Exacerbation 272.0 Hypercholesterolemia Pure Office Visit 01/18/2014 1:15p [place] [facility] Marta Kim, 346.70 Chronic Migraine Services Of [facility] M.D. 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 723.4 Brachial Neuritis Or Radiculitis NOS Office Visit 11/10/2013 1:20p [facility] Internal Vicenta Ciu, V70.0 Examination Medicine M.DStephany, FACP General Medical Routine AT Health Care Facility V76.10 Screening For Malignant Neoplasm Breast 494.1 Bronchiectasis With Acute Exacerbation 401.1 Hypertension Benign 272.0 Hypercholesterolemia Pure 268.9 Vitamin D Deficiency Unspec 726.19 Shoulder Disorders Other Spec 696.8 Psoriasis Other 780.79 Malaise And Fatigue Other Office Visit 10/19/2013 11:00a [place] [facility] Marta Kim, 333.1 Tremor Essential Services Of Mitch Sykes & Other Forms 346.70 Chronic Migraine W/Out Aura W/Out Mention Intractable Office Visit 10/06/2013 9:45a Orthopedic Vineet Kong, 726.2 Shoulder Region Services Of M.El Affections Other Not C.M.A. Elsewhere Class Office Visit 09/29/2013 10:00a [facility] Internal Vicenta Cui, 494.1 Bronchiectasis With Medicine Onel, FACP Acute Exacerbation 726.19 Shoulder Disorders Other Spec V04.81 Need For Prophylactic Vaccination & Inoculation/Influenza Office Visit 09/03/2013 10:45a Orthopedic Vineet Kong, 840.8 Sprains & Services Of Alvina Sykes Strains Shoulder & Upper Arm Other Spec Sites Office Visit 08/13/2013 2:40p [facility] Internal Vicenta Cui, 780.79 Malaise And Medicine Onel, FACP Fatigue Other 494.1 Bronchiectasis With Acute Exacerbation 726.19 Shoulder Disorders Other Spec Office Visit 07/31/2013 3:40p [facility] Internal Zakia Lindsey, 494.1 Bronchiectasis With Medicine Onel Acute Exacerbation Office Visit 07/21/2013 11:30a [facility] Internal Sheldon Gallegos 494.1 Bronchiectasis With Medicine Dougie, Acute Exacerbation M.El,FACP Office Visit 06/23/2013 9:00a [facility] Internal Vicenat Cui, 728.85 Spasm Muscle Medicine Onel, FACP 300.00 Anxiety State Unspec 401.1 Hypertension Benign 494.0 Bronchiectasis Without Acute Exacerbation Office Visit 04/15/2013 11:30a [place] [facility] Marta Kim, 333.1 Tremor Essential 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 346.90 Migraine Unspec W/O Intractable W/O Status Migrainosus 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 Office Visit 03/11/2013 [facility] Internal Vicenta 780.79 Malaise And Fatigue Other 2:40p Ozzie Cui M.D., FACP Office Visit 01/06/2013 [facility] Internal Vicenta 272.0 Hypercholesterolemia Pure 2:40p Ozzie Cui M.D., FACP 268.9 Vitamin D Deficiency Unspec 401.1 Hypertension Benign Office Visit 11/05/2012 1:20p [facility] Internal Vicenta Cui, V70.0 Examination Medicine Onel, FACP General Medical Routine AT Health Care Facility V70.0 Examination General Medical Routine AT Health Care Facility V76.10 Screening For Malignant Neoplasm Breast 494.0 Bronchiectasis Without Acute Exacerbation 401.1 Hypertension Benign 272.0 Hypercholesterolemia Pure 346.90 Migraine Unspec W/O Intractable W/O Status Migrainosus 696.1 Psoriasis Other 723.1 Cervicalgia V04.81 Need For Prophylactic Vaccination & Inoculation/Influenza 268.9 Vitamin D Deficiency Unspec Office Visit 10/15/2012 1:00p [place] [facility] Marta Barrosfaninick, 346.90 Migraine Unspec Services Of Mitch Sykes W/O Intractable W/O Status Migrainosus 333.1 Tremor Essential & Other Forms Office Visit 05/14/2012 9:20a [facility] Internal Elyse Sagastume, 782.1 Rash & Other Nonspec Medicine N.P. Skin Eruption Office Visit 01/30/2012 2:20p [facility] Internal Vicenta Cui, 788.1 Dysuria Medicine Onel, FACP Office Visit 01/15/2012 3:00p [facility] Internal Vicenta Cui, 494.0 Bronchiectasis Medicine Onel, FACP Without Acute Exacerbation Office Visit 01/07/2012 2:00p [facility] Internal Elyse Sagastume, 466.0 Bronchitis Acute Medicine N.P. Office Visit 12/31/2011 1:20p [facility] Internal Elyse Sagastume, 466.0 Bronchitis Acute Medicine N.P. Office Visit 11/27/2011 10:00a DO Not Use Vicenta Basilia, 355.1 Meralgia Jeni Sykes, FACP Paresthetica 250.00 Diabetes Mellitus W/O Compl Type II Or Unspec Controlled Office Visit 09/17/2011 11:20a DO Not Use Elyse Sagastume, 724.3 Sciatica [facility] N.P. Office Visit 08/22/2011 2:40p DO Not Use Vicenta Basilia, 728.85 Spasm Muscle Jeni Sykes, FACP v04.81 Need For Prophylactic Vaccination & Inoculation/Influenza Office 07/26/2011 DO Not Use Vicenta 788.1 Dysuria Visit 4:20p Jeni Cui M.D., FACP Office 07/25/2011 DO Not Use Vicenta 272.0 Hypercholesterolemia Visit 10:00a Jeni Cui M.D., Pure FACP 790.21 Impaired Fasting Glucose 269.2 Vitamin Deficiency Unspec Office Visit 05/24/2011 DO Not Use Vicenta Basilia, 494.0 Bronchiectasis 3:20p Jeni Sykes, FACP Without Acute Exacerbation 401.1 Hypertension Benign 272.0 Hypercholesterolemia Pure V70.0 Examination General Medical Routine AT Health Care Facility 627.9 Menopausal & Postmenopausal Disorder Unspec Office Visit 06/21/2010 DO Not Use Vicenta Basilia, V72.84 Examination 1:15p Jeni Sykes, FACP Preoperative Unspec v72.84 Examination Preoperative Unspec 494.0 Bronchiectasis Without Acute Exacerbation 366.04 Cataract Nuclear Office Visit 05/30/2010 DO Not Use Vicenta Basilia, 599.0 UTI Urinary Tract 3:00p Jeni Sykes, FACP Infection Site Not Spec Office Visit 02/09/2010 DO Not Use Vicenta Basilia, V72.84 Examination 9:45a Jeni Sykes, FACP Preoperative Unspec 494.0 Bronchiectasis Without Acute Exacerbation 401.1 Hypertension Benign Office Visit 01/09/2010 9:15a DO Not Use Vicenta Basilia, V70.0 Examination [employer] M.D., FACP General Medical Routine AT Health Care Facility 558.9 Gastroenteritis & Colitis Noninfectious Other 494.0 Bronchiectasis Without Acute Exacerbation 368.10 Visual Disturbance Subjective Unspec 401.1 Hypertension Benign V04.81 Need For Prophylactic Vaccination & Inoculation/Influenza Office Visit 09/12/2009 DO Not Use Vicenta Basilia, 494.0 Bronchiectasis 9:00a [employer] M.D., FACP Without Acute Exacerbation 564.1 Irritable Bowel Syndrome V04.81 Need For Prophylactic Vaccination & Inoculation/Influenza Office Visit 01/28/2009 DO Not Use Vicenta Basilia, 494.0 Bronchiectasis 2:45p [employer] M.D., FACP Without Acute Exacerbation 272.4 Hyperlipidemia Other Unspec Office Visit 01/06/2009 3:30p DO Not Use Vicenta Basilia, V72.31 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 [employer]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., FACP Examination 494.0 Bronchiectasis Without Acute Exacerbation 786.50 Pain Chest Unspec 780.79 Malaise And Fatigue Other 401.1 Hypertension Benign Office Visit 07/16/2008 4:00p DO Not Use Vicenta Basilia, 724.1 Pain Thoracic [employer] M.D., FACP Spine 494.0 Bronchiectasis Without Acute Exacerbation Office Visit 01/01/2008 DO Not Use Vicenta Basilia, 494.0 Bronchiectasis 11:15a [employer] M.D., FACP Without Acute Exacerbation 346.20 Migraine Variants W/O Intractable W/O Status Migrainosus 272.4 Hyperlipidemia Other Unspec Office Visit 11/27/2007 1:00p DO Not Use Vicenta Basilia, V72.31 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 [employer] M.D., FACP Examination 401.1 Hypertension Benign 780.79 Malaise And Fatigue Other 733.90 Bone & Cartilage Disorder Unspec 494.0 Bronchiectasis Without Acute Exacerbation V04.89 Need For Prophylactic Vaccination & Inoculation Other Virus Office Visit 01/27/2007 9:00a DO Not Use Vicenta Basilia, 486 Pneumonia [employer] M.D., FACP Organism Unspec 494.0 Bronchiectasis Without Acute Exacerbation Office Visit 01/20/2007 DO Not Use Elyse Sagastume, 466.0 Bronchitis Acute 9:30a [employer] N.P. Office Visit 11/28/2006 DO Not Use Vicenta Basilia, 401.1 Hypertension 10:00a [facility] FACP Benign 272.0 Hypercholesterolemia Pure Office Visit 10/29/2006 1:15p DO Not Use Vicenta Basilia, V72.31 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 [facility], FACP Examination V04.81 Need For Prophylactic Vaccination & Inoculation/Influenza 401.1 Hypertension Benign Plan of Treatment Future Appointment(s):05/13/2019 11:00 am - Deb Cole NP at [facility]04/22/2020 1:30 pm - Delilah Correia MD at [facility] Gooontvldge15/21/2019 1:30 pm - Delilah Correia MD at [facility] Kvgewtvlqoc86/ 09/2019 2:00 pm - Marta Kim M.D. at [place] [facility]04/28 1:00 pm - Elyse Sagastume N.P. at [facility] Internal Mibwznzu32/22/2019 - Teresa Cano MDJ47.1 Bronchiectasis with (acute) exacerbationNew Medication: Ciprofloxacin HCL 750 mg - 1 tab daily for 7 daysPrednisone 10 mg - 30mg daily for 1 week, 20mg daily for 1 week, 10 mg daily for 1 weekFollow up:3 weeks SM
[2019-04-29 18:15] LABS: ABS Lymphocytes 0.6 10^3/ul (1.0-4.8); ABS Monocytes 0.1 10^3/ul (0-0.8); ABS Neutrophils 8.8 10^3/ul (1.5-7.7); Eosinophil % 0.1 %; Hematocrit 43 % (35-47); Hemoglobin 14.1 g/dL (12.0-16.0); Lymphocyte % 6.7 %; Mean Corpuscular HGB Conc 33 g/dL (31-36); Mean Corpuscular Hemoglobin 27 pg (27-31); Mean Corpuscular Volume 83 fL (80-97); Mean Platelet Volume 7.9 fL (7.4-10.4); Platelet Count 292 10^3/uL (150-450); Red Blood Count 5.16 10^6 /uL (3.70-4.87); Red Cell Distribution Width 14 % (10.5-15); White Blood Count 9.6 10^3/uL (3.5-10.8)
[2019-04-29 18:34] LABS: Albumin 4.1 g/dL (3.2-5.2); Albumin/Globulin Ratio 1.5 (1-3); EGFR Non-African American 101.6 (>60); Globulin 2.7 g/dL (2-4); Potassium 3.3 mmol/L (3.5-5.0); Total Bilirubin 0.5 mg/dL (0.2-1.0); Total Protein 6.8 g/dL (6.4-8.9)
--- NOTE | 2019-04-29 18:38 | ED ---
Influenza-Like Illness - HPI Summary HPI Summary: Pt is a 73 year old F presenting to [facility] with a chief complaint of bronchitis. The pt states that she was treated for bronchitis 9 days ago on 04/20/19 and used the full round of ABX Cipro that was prescribed for her. She stated that the ABX did not improve her symptoms and was instructed by her PCP to return to the hospital. She states that she has wheezes that have not improved. She denies SOB and any new swelling. She uses an inhaler and 02 mask at night for COPD. - History of Current Complaint Chief Complaint: EDFluSymptoms Time Seen by Provider: 04/29/19 17:01 Hx Obtained From: Patient Onset/Duration: Lasting Days - 9, Still Present Severity: Moderate Associated Signs & Symptoms: Negative - Negative: SOB Positive: Wheezes - Allergy/Home Medications Allergies/Adverse Reactions: Allergies Allergy/AdvReac Type Severity Reaction Status Date / Time Penicillins Allergy Unknown Verified 04/29/19 15:28 Reaction Details tetracycline Allergy Unknown Verified 04/29/19 15:28 Reaction Details Home Medications: Home Medications Albuterol Sulfate 0.63 mg INH Q6HR PRN 04/29/19 [History Confirmed 04/29/19] Albuterol/Ipratropium RESP(NF) [Combivent Respimat(NF)] 1 puff INH QID PRN 04/29 [History Confirmed 04/29/19] Benzonatate CAP* [Tessalon 100 MG CAP*] 200 mg PO TID PRN 04/29/19 [History Confirmed 04/29/19] Calcium Carbonate [Calcium] 600 mg PO DAILY 04/29/19 [History Confirmed 04/29/19 ] Clobetasol Propionate 0.05 % TOPICAL BID PRN 04/29/19 [History Confirmed ] Cyclobenzaprine TAB* [Flexeril 10 MG TAB*] 10 mg PO Q8HR PRN 04/29/19 [History Confirmed 04/29/19] Primidone TAB(*) [Mysoline TAB(*)] 100 mg PO BID 04/29/19 [History Confirmed ] Tacrolimus 0.1% OINT (NF) 1 applic TOPICAL BID 04/29/19 [History Confirmed 04/29] amLODIPine TAB* [Norvasc 5 mg TAB*] 10 mg PO DAILY 04/29/19 [History Confirmed 04/29/19] predniSONE TAB* [Deltasone 10 MG TAB*] 20 mg PO DAILY 04/29/19 [History Confirmed 04/29/19] PMH/Surg Hx/FS Hx/Imm Hx Previously Healthy: No Endocrine/Hematology History: Denies: Hx Anticoagulant Therapy Cardiovascular History: Reports: Hx Hypercholesterolemia, Hx Hypertension - CONTROLLED BY MEDS, Other Cardiovascular Problems/Disorders - PNEUMONIA Denies: Hx Angina, Hx Pacemaker/ICD Respiratory History: Reports: Hx Asthma, Hx Chronic Obstructive Pulmonary Disease (COPD), Hx Pneumonia - recurrent, Other Respiratory Problems/Disorders - HX OF PNEUMONIA NUMEROUS TIMES, NONE IN 10+ YEARS AGO GI History: Reports: Hx Gastroesophageal Reflux Disease History: Reports: Other Problems/Disorders - HISTORY OF UTI'S Musculoskeletal History: Reports: Hx Arthritis - SPINE, Hx Bursitis Sensory History: Reports: Hx Contacts or Glasses - reading Denies: Hx Hearing Aid Opthamlomology History: Reports: Hx Contacts or Glasses - reading Neurological History: Reports: Hx Headaches, Hx Migraine, 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 Psychiatric History: Reports: Hx Anxiety, Hx Depression Denies: Hx Panic Disorder - Cancer History Cancer Type, Location and Year: SKIN CANCER Hx Chemotherapy: No Hx Radiation Therapy: No - Surgical History Surgery Procedure, Year, and Place: RT ROTATOR CUFF REPAIR 2001 OR 2002, LT HUMERUS RODDING 2001 OR 2002, HYSTERECTOMY 1985, 1985 COLON RESECTION FROM ENDOMETRIOSIS,cataract, bilateral eyelid liposuction, breast reduction 2013 Hx Anesthesia Reactions: Yes - N/V Infectious Disease History: No Infectious Disease History: Denies: Hx Clostridium Difficile, Hx Hepatitis, Hx Human Immunodeficiency Virus (HIV), Hx of Known/Suspected MRSA, Hx Shingles, Hx Tuberculosis, Hx Known/ Suspected VRE, Hx Known/Suspected VRSA, History Other Infectious Disease, Traveled Outside the [place] in Last 30 Days - Family History Known Family History: Positive: Hypertension, Respiratory Disease - Social History Alcohol Use: Rare Hx Substance Use: No Substance Use Type: Reports: None Hx Tobacco Use: No Smoking Status (MU): Never Smoked Tobacco Review of Systems Positive: Other - Positive: wheezing. Negative: Shortness Of Breath Negative: Edema All Other Systems Reviewed And Are Negative: Yes Physical Exam - Summary Physical Exam Summary: Constitutional: Well-developed, Well-nourished, Alert. (-) Distressed Skin: Warm, Dry HENT: Normocephalic; Atraumatic Eyes: Conjunctiva normal Neck: Musculoskeletal ROM normal neck. (-) JVD, (-) Stridor, (-) Tracheal deviation Cardio: Rhythm regular, rate normal, Heart sounds normal; Intact distal pulses; The pedal pulses are 2+ and symmetric. Radial pulses are 2+ and symmetric. (-) Murmur Pulmonary/Chest wall: Effort normal. (-) Respiratory distress, (-) Wheezes, (-) Rales Abd: Soft, (-) tenderness, (-) Distension, (-) Guarding, (-) Rebound Musculoskeletal: (-) Edema Lymph: (-) Cervical adenopathy Neuro: Alert, Oriented x3 Psych: Mood and affect Normal Triage Information Reviewed: Yes Vital Signs On Initial Exam: Initial Vitals Temp Pulse Resp BP Pulse Ox 99 F 80 18 169/97 94 04/29/19 15:22 04/29/19 15:22 04/29/19 15:22 04/29/19 15:22 04/29/19 15:22 Vital Signs Reviewed: Yes Diagnostics - Vital Signs Vital Signs Temp Pulse Resp BP Pulse Ox 04/29/19 18:11 20 04/29/19 18:10 94 04/29/19 18:09 181/83 04/29/19 18:00 79 93 04/29/19 17:32 83 184/91 95 04/29/19 17:00 82 95 04/29/19 16:52 87 210/90 96 04/29/19 16:51 108 94 04/29/19 15:22 99 F 80 18 169/97 94 - Laboratory Lab Results: Lab Results 04/29/19 04/29/19 Range/Units 18:02 18:02 WBC 9.6 (3.5-10.8) 10^3/uL RBC 5.16 H (3.70-4.87) 10^6 /uL Hgb 14.1 (12.0-16.0) g/dL Hct 43 (35-47) % MCV 83 (80-97) fL MCH 27 (27-31) pg MCHC 33 (31-36) g/dL RDW 14 (10.5-15) % Plt Count 292 (150-450) 10^3/uL MPV 7.9 (7.4-10.4) fL Neut % (Auto) 91.8 % Lymph % (Auto) 6.7 % [place] % (Auto) 1.3 % Eos % (Auto) 0.1 % Baso % (Auto) 0.1 % Absolute Neuts (auto) 8.8 H (1.5-7.7) 10^3/ul Absolute Lymphs (auto) 0.6 L (1.0-4.8) 10^3/ul Absolute Monos (auto) 0.1 (0-0.8) 10^3/ul Absolute Eos (auto) 0.0 (0-0.6) 10^3/ul Absolute Basos (auto) 0.0 (0-0.2) 10^3/ul Absolute Nucleated RBC 0.0 10^3/ul Nucleated RBC % 0.0 Lactic Acid 1.0 (0.5-2.0) mmol/L Result Diagrams: 04/29/19 18:02 04/29/19 18:02 Lab Statement: Any lab studies that have been ordered have been reviewed, and results considered in the medical decision making process. - Radiology CXR Radiology Interpretation Completed By: ED Physician, Radiologist Summary of Radiographic Findings: No acute findings. - EKG 1802 Cardiac Rate: NL - 76 BPM EKG Rhythm: Sinus Rhythm ST Segment: Normal Summary of EKG Findings: Normal sinus rhythm at 76 bpm, normal OK, normal QRS, normal QTc, normal axis, normal ST, normal T-waves, normal EKG Flu Symptom Course/Dx - Course Course Of Treatment: Pt is a 73 year old F presenting to [facility] with a chief complaint of bronchitis. The pt states that she was treated for bronchitis 9 days ago on 04/20/19 and used the full round of ABX Cipro that was prescribed for her. the pt received a CXR which showed no acute findings. The pt also received an EKG that shows a normal sinus rhythm at 76 bpm, normal OK, normal QRS, normal QTc, normal axis, normal ST, normal T-waves, normal EKG. She had abnormal lab vaulues in RBC 5.16 H, Absolute neuts 8.8 H, Absolute Lymphs .6 L, Potassium 3.3 L, Glucose 165 H, AST 12, ABG pH 7.48 H, ABG pO2 71 L and ABG Base Excess 4.0 H. The pt will be signed out to Dr. Gleason at shift change on pending CTA chest. . - Diagnoses Provider Diagnoses: Shortness of breath, COPD (chronic obstructive pulmonary disease) - Physician Notifications Discussed Care Of Patient With: Teresa Caon Time Discussed With Above Provider: 18:55 Instructed by Provider To: Other - Dr. Cano, district fire management officer, agreed with the ED Physician's plan of care. Discharge - Sign-Out/Discharge Documenting (check all that apply): Sign-Out Patient Signing out patient TO: Leonardo Angelo Patient Received Moderate/Deep Sedation with Procedure: No - Discharge Plan Referrals: Maranda Powell MD [Primary Care Provider] - - Attestation Statements Document Initiated by Marielos: Yes Documenting Scribe: Beto Hickey Provider For Whom Dorcasibe is Documenting (Include Credential): Roxana Giang MD Scribe Attestation: I, Beto Hickey, scribed for Roxana Salgado MD on 04/29/19 at 1911. Scribe Documentation Reviewed: Yes Provider Attestation: The documentation as recorded by the Beto ovalle accurately reflects the service I personally performed and the decisions made by me, Roxana Salgado MD Status of Scribe Document: Viewed
[2019-04-29] MEDS ORDERED: Potassium Chlor TAB* 20 MEQ TAB.ER PO ONE (18:46)
[2019-04-29] MEDS ORDERED: Dexamethasone IV* 4 MG/ML 5 ML VIAL (20 MG) IVPB ONE (18:47)
[2019-04-29] MEDS ORDERED: Albuterol/Ipratropium NEB.SOL* Albuterol 2.5 MG/Ipratropium 0.5 MG 3 ML INH ONE (18:47)
[2019-04-29] MEDS ORDERED: Iohexol 300* (CONTRAST) 10 ML SDV IV ONE (19:02)
[2019-04-29 19:08] LABS: Influenza A Molecular NEGATIVE (Negative); Influenza B Molecular NEGATIVE (Negative)
--- NOTE | 2019-04-29 19:10 | ED ---
Progress - Progress Note Progress Note: RECEIVING SIGN-OUT FROM DR. BAKER AT SHIFT CHANGE PENDING CTA RESULTS. A 73 y/o F with pert PMHx: COPD, bronchitis presents to ED with SOB from known chest cold onset 9 days ago. Patient referred to ED by Dr. Cano, pulmonology. - Results/Orders Results/Orders: Chest CTA as read by radiologist: IMPRESSION: 1. No pulmonary emboli. 2. Findings bilateral lower lobe aspiration with minimal associated volume loss. 3. Splenic artery aneurysm. ED provider has reviewed this report. Re-Evaluation - Re-Evaluation 1 Re-Evaluation Time: 20:28 Change: Improved Comment: Discussing CTA results with patient and plans for discharge. Course/Dx - Course Course Of Treatment: RECEIVING SIGN-OUT FROM DR. BAKER AT SHIFT CHANGE PENDING CTA RESULTS. Patient is 73 y/o F with pert PMHx: COPD, bronchitis presenting with SOB from known chest cold onset 9 days ago. Patient referred to ED by Dr. Cano, pulmonology. Chest CTA shows "1. No pulmonary emboli. 2. Findings bilateral lower lobe aspiration with minimal associated volume loss. 3. Splenic artery aneurysm.". Will discharge patient home. - Diagnoses Provider Diagnoses: Shortness of breath, COPD (chronic obstructive pulmonary disease) Discharge - Sign-Out/Discharge Documenting (check all that apply): Patient Departure - D/C, Receiving Sign-Out Receiving patient FROM: Roxana Salgado - pending CTA results Patient Received Moderate/Deep Sedation with Procedure: No - Discharge Plan Condition: Stable Disposition: HOME Patient Education Materials: COPD (Chronic Obstructive Pulmonary Disease) (ED) Referrals: Maranda Powell MD [Primary Care Provider] - Teresa Cano MD [Medical Doctor] - Additional Instructions: Continue your current medication, contact Dr. Cano tomorrow for further instructions. - Billing Disposition and Condition Condition: STABLE Disposition: Home - Attestation Statements Document Initiated by Scribe: Yes Documenting Scribe: Caitlyn Taveras Provider For Whom Scribe is Documenting (Include Credential): Dr. Leonardo Angelo MD Scribe Attestation: Caitlyn Sands scribed for Dr. Leonardo Angelo MD on 04/30/19 at 0239. Scribe Documentation Reviewed: Yes Provider Attestation: The documentation as recorded by the scribe, Caitlyn Taveras accurately reflects the service I personally performed and the decisions made by me, Dr. Leonardo Angelo MD Status of Marielos Document: Viewed
[2019-04-29] MEDS ORDERED: Iohexol 350* (CONTRAST) 500 ML MDV IV ONE (19:11)
[2019-04-29 20:54] VITALS: BP 181/73
== END 2019-04-29 20:59 | disposition home or self-care (01) ==
LOC: ED 14:53
DX: J44.1 Chronic obstructive pulmonary disease with (acute) exacerbation (principal); I72.8 Aneurysm of other specified arteries; I10 Essential (primary) hypertension; K21.9 Gastro-esophageal reflux disease without esophagitis; E78.00 Pure hypercholesterolemia, unspecified; M19.90 Unspecified osteoarthritis, unspecified site; F41.9 Anxiety disorder, unspecified; F32.9 Major depressive disorder, single episode, unspecified; Z88.0 Allergy status to penicillin; Z88.8 Allergy status to other drugs, medicaments and biological substances; Z79.899 Other long term (current) drug therapy; Z79.52 Long term (current) use of systemic steroids; Z87.01 Personal history of pneumonia (recurrent); Z85.828 Personal history of other malignant neoplasm of skin
CPT/HCPCS: 36415; 71046; 71275; 80053; 82803; 83605; 83880; 84484; 85025; 87040; 93005; 99284; A9270-GY; J1100; Q9967

== ENCOUNTER 2019-11-22 17:07 | Emergency (ER) | payer MEDICARE, BC ==
--- OUTSIDE RECORDS SUMMARY | 2019-11-22 17:14 | XMS REPORT | Continuity of Care Document ---
:1945 External Reference #:[id number] Author Name Elyse Sagastume N.P. 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 [phone] Problems Active Problems Provider Date Essential hypertension [...] 02/27/2016 Obesity Teresa Cano MD Onset: 02/27/2016 Social History Type Date Description Comments Sex Unknown ETOH Use Rarely consumes alcohol 2 beers per month Tobacco Use Start: Unknown Patient has never smoked Recreational Drug Use Denies Drug Use Smoking Status Reviewed: 11/16/19 Patient has never smoked Exercise Type/Frequency Exercises regularly Exercise Type/Frequency Walks 3 times a week Allergies, Adverse Reactions, Alerts Active Allergies Reaction Severity Comments Date Cipro RASH 01/05/2010 Penicillin RASH 01/05/2010 Tetracycline 01/05/2010 Medications Active Medications SIG Qnty Indications Ordering Date Provider Levofloxacin one po qd x 7 days 7tabs J47.1 Elyse Sagastume, 11/16/2019 750mg N.P. Tablets Prednisone 4 tablets by mouth 40tabs J47.1 Elyse Sagastume, 11/16/2019 10mg Tablets for 4 days,3 N.P. tablets by mouth for 4 days, 2 tablets by mouth for 4 days, 1 tablet by mouth for 4 days Benzonatate one by mouth three 30caps J47.1 Elyse Sagastume, 11/16/2019 200mg times daily as N.P. Capsules needed for cough Xanax 1 tablet every 12 20tabs Elyse Sagastume, 11/04/2019 0.25mg Tablets hours as needed N.P. for anxiety Losartan Take One Tablet By 90tabs Elyse Sagastume, 08/08/2019 Potassium/Hydrochloro Mouth Every Day N.P. thiazide 100-25mg Tablets Fluticasone Inhale One puff By 60units J47.1 Elyse Sagastume, 05/03/2019 Propionate/Salmeterol Mouth Twice A Day N.P. Diskus 500-50mcg/Dose Aerosol Montelukast Sodium Take One Tablet By 90tabs J47.1 Teresa Cano, 2018 10mg Mouth Every Day MD Tablets Potassium Chloride Take One Tablet By 270tabs Elyse Sagastume, 12/06/2018 Maribel ER Mouth Three Times N.P. 20Meq Tablets A Day ER Amlodipine Besylate 1 by mouth every 90tabs Elyse Sagastume, 10/15/2018 day N.P. 10mg Tablets Ondansetron HCL one by mouth every 30tabs R11.0 Elyse Sagastume, 08/14/2018 4mg 8 hours as needed N.P. Tablets for nausea Albuterol Sulfate 1 unit, nebl, 225ml Teresa Cano, 10/14/2017 every 6 hours, as MD 0.63mg/3ML Nebulizer needed Escitalopram Oxalate take one tablet by 30tabs F32.89 Elyse Sagastume, 04/18 mouth every day N.P. 20mg Tablets Combivent Respimat Inhale One puff By 4units Maranda 05/23/2016 Mouth Four Times A Cotton, M.D. 20-100mcg/Act Aerosol Day as Needed Flutter use as instructed 1units J47.1 Teresademarco Cano, 12/07/2015 Device twice a day Clonazepam take 1 or 1+1/2 45tabs Elyse Sagastume, 12/01/2015 0.5mg tablet by mouth at N.P. Tablets bedtime maximum daily dose = 1 & 1/2 tablets Atorvastatin Calcium Take One Tablet By 90tabs Z00.01 Elyse Sagastume, 11/10 Mouth Every Day N.P. 20mg Tablets Primidone take two tablets 360tabs Marta Kim, 01/06/2013 50mg Tablets by mouth twice a M.D. day Pantoprazole Sodium Take One Tablet By 90tabs Elyse Sagastume, 04/30/2011 Mouth Every Day N.P. 40mg Tablets Spironolactone take one tablet by 90tabs Elyse Sagastume, 04/21/2010 25mg mouth every day N.P. Tablets Estrace 1 application two 42.500gm Unknown 0.1mg/GM Cream times weekly Vit D 1 tab po daily Unknown 2000Iu Fish Oil 1 po qd 90caps Unknown 1200mg Capsules Multivitamins 1 capsule jenifer;y 30caps Unknown Capsules Calcium 600 1 po qd 60tabs Unknown 600mg Tablets Otezla 1 by mouth twice a [facility], 30mg Tablets day MD Gina Clobetasol Propionate Apply Topically Unknown Two Times A Day To 0.05% Ointment Lower Legs For 3 Weeks Amonium Lactate Unknown History Medications Levaquin 1 by mouth daily 10tabs J47.1 Elyse Sagastume, 10/30/2019 - 500mg for 10 days N.P. 11/09/2019 Tablets Prednisone 4 tablets by 40tabs J47.1 Elyse Sagastume, 10/30/2019 - 5mg mouth for 4 days N.P. 11/15/2019 Tablets 3 tablets by mouth for 4 days 2 tablets by mouth for 4 days 1 tablet by mouth for 4 days Benzonatate one by mouth 30caps J47.1 Elyse Sagastume, 10/30/2019 - 200mg three times N.P. 11/13/2019 Capsules daily as needed for cough Medications Administered in Office Medication SIG Qnty Indications Ordering Provider Date Depomedrol 80MG Vineet Kong M.D. 11/19/2013 Injection Immunizations CPT Code Status Date Vaccine Reaction Lot # [id number] Given 04/28/2019 Tetanus And Diptheria (Td) No immediate [id number] For Adult Use Preservative reaction...jh Free 46522 Given 09/22/2018 Influenza Virus Vaccine, [id number] Quadrivalent, Split, Preservative Free Q2039 Given 12/12/2016 Flu Vaccine NOS 77409 Given 09/30/2015 Flu Vaccine Split Virus [id number] Preservative Free For Indiv 3Yr Older 74641 Given 11/10/2014 Pneumococcal Conjugate [id number] Vaccine 13 Valent For Intramuscular Use 39999 Given 10/06/2014 Flu Vaccine Split Virus Preservative Free For Indiv 3Yr Older 12192 Given 09/29/2013 Flu Vaccine Split Virus [id number] Preservative Free For Indiv 3Yr Older Q2037 Given 11/05/2012 Fluvirin Im 3Yrs And Older [id number] 16734 Given 08/22/2011 Influenza Virus 3Yrs & Over [id number] 62061 Given 10/06/2010 Pneumonia Vaccine 59814 Given 01/09/2010 Administration Swine Flu Shot 79599 Given 01/09/2010 Influenza Virus Vaccine, Pandemic Formulation 13551 Given 09/12/2009 Influenza Virus 3Yrs & Over 26625 Given 10/05/2008 Tdap - Tetanus/Diptheria/Acellular Pertussis 98591 Given 10/05/2008 Tdap - Tetanus/Diptheria/Acellular Pertussis 88188 Given 10/05/2008 Influenza Virus 3Yrs & Over 08173 Given 11/27/2007 Zoster (Zostavax) 06346 Given 11/27/2007 Zoster (Zostavax) 23437 Given 10/29/2006 Influenza Virus 3Yrs & Over 28725 Given 10/29/2006 Influenza Virus 3Yrs & Over Vital Signs Date Vital Result Comment 11/16/2019 3:06pm Height 66 inches 5'6" Weight 191.25 lb Heart Rate 87 /min BP Systolic Sitting 148 mmHg BP Diastolic Sitting 74 mmHg Body Temperature 98.8 F O2 % BldC Oximetry 96 % BMI (Body Mass Index) 30.9 kg/m2 10/30/2019 2:09pm Height 66 inches 5'6" Weight 189.25 lb Heart Rate 78 /min BP Systolic Sitting 138 mmHg BP Diastolic Sitting 76 mmHg Body Temperature 97.6 F O2 % BldC Oximetry 98 % BMI (Body Mass Index) 30.5 kg/m2 Results Description No Information Available Procedures Date Code Description Status 05/06/2018 [id number] Mammogram Completed 08/03/2016 [id number] Mammogram Completed 07/27/2015 [id number] Mammogram Completed 11/22/2014 [id number] Bone Mineral Density Test Completed 11/22/2014 [id number] Mammogram Completed 11/16/2013 [id number] Mammogram Completed 11/14/2012 [id number] Mammogram Completed 07/03/2011 [id number] Colonoscopy Completed 06/06/2011 [id number] Bone Mineral Density Test Completed 06/06/2011 [id number] Mammogram Completed 01/17/2010 [id number] Mammogram Completed 12/29/2007 [id number] Bone Mineral Density Test Completed 12/29/2007 [id number] Mammogram Completed 02/24/2002 [id number] Diabetic Retinal Eye Exam Completed Medical Devices Description No Information Available Encounters Type Date Location Provider Dx Diagnosis Office Visit 10/30/2019 [facility] Internal Elyse Sagastume, I10 Essential (primary ) 1:[facility] J47.1 Bronchiectasis with (acute) exacerbation Assessments Date Code Description Provider 11/16/2019 J47.1 Bronchiectasis with (acute) exacerbation Elyse Sagastume, N.P. 10/30/2019 I10 Essential (primary) hypertension Elyse Sagastume, N.P. 10/30/2019 J47.1 Bronchiectasis with (acute) exacerbation Elyse Sagastume, N.P. Plan of Treatment Future Appointment(s):04/29/2020 1:00 pm - Elyse Sagastume, N.P. at [facility] Internal Medicine - [facility]04/22/2020 1:30 pm - Delilah Correia MD at [facility] [id number]/16 /2019 - Elyse Sagastume N.P.J47.1 Bronchiectasis with (acute) exacerbationNew Medication:Levofloxacin 750 mg - one po qd x 7 daysPrednisone 10 mg - 4 tablets by mouth for 4 days,3 tablets by mouth for 4 days, 2 tablets by mouth for 4 days , 1 tablet by mouth for 4 daysBenzonatate 200 mg - one by mouth three times daily as needed for coughComments:For your bronchitis I have prescribed Levaquin 750 mg, take 1 tablet daily for 7 days.I have prescribed a course of Prednisone 10 mg.Take 4 tablets for 4 days, 3 tablets for 4 days, 2 tablets for 4 days, 1 tablet for 4 days.For your cough I prescribed Benzonatate 200 mg.You may take this every 8 hoursas needed.I have ordered a chest Xray, the office will contact you with your results.If your symptoms do not gradually improve, please contact the office. Functional Status Description No Information Available Mental Status Description No Information Available Referrals Description No Information Available
--- OUTSIDE RECORDS SUMMARY | 2019-11-22 17:14 | XMS REPORT | Continuity of Care Document ---
:1945 External Reference #:[id number] Author Name Elyse Sagastume N.P. 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 Prednisone 4 tablets by mouth 40tabs J47.1 Elyse Tanika, 10/30/2019 5mg Tablets for 4 days 3 N.P. tablets by mouth for 4 days 2 tablets by mouth for 4 days 1 tablet by mouth for 4 days Benzonatate one by mouth three 30caps J47.1 Elyse Tanika, 10/30/2019 200mg times daily as N.P. Capsules needed for cough Losartan Take One Tablet By 90tabs Elyse [...] Needed Flutter use as instructed 1units J47.1 Teresa Cano, 12/07/2015 Device twice a day [...] Tablets Otezla 1 by mouth twice a Leena, 30mg Tablets day MD Gina Clobetasol Propionate Apply Topically Unknown Two Times A Day To 0.05% Ointment Lower Legs For 3 Weeks Amonium Lactate Unknown Medications Administered in Office Medication SIG Qnty Indications Ordering Provider Date Depomedrol 80MG Vineet Kong M.D. 11/19/2013 Injection Immunizations CPT Code Status Date Vaccine Reaction Lot # [id number] Given 04/28/2019 Tetanus And Diptheria (Td) No immediate [id number] For Adult Use Preservative reaction...jh Free 24997 Given 09/22/2018 Influenza Virus Vaccine, [id number] Quadrivalent, Split, Preservative Free Q2039 Given 12/12/2016 Flu Vaccine NOS 08148 Given 09/30/2015 Flu Vaccine Split Virus [id number] Preservative Free For Indiv 3Yr Older 52637 Given 11/10/2014 Pneumococcal Conjugate [id number] Vaccine 13 Valent For Intramuscular Use 16053 Given 10/06/2014 Flu Vaccine Split Virus Preservative Free For Indiv 3Yr Older 12984 Given 09/29/2013 Flu Vaccine Split Virus [id number] Preservative Free For Indiv 3Yr Older Q2037 Given 11/05/2012 Fluvirin Im 3Yrs And Older [id number] 88788 Given 08/22/2011 Influenza Virus 3Yrs & Over [id number] 49952 Given 10/06/2010 Pneumonia Vaccine 71783 Given 01/09/2010 Administration Swine Flu Shot 12119 Given 01/09/2010 Influenza Virus Vaccine, Pandemic Formulation 38894 Given 09/12/2009 Influenza Virus 3Yrs & Over 54744 Given 10/05/2008 Tdap - Tetanus/Diptheria/Acellular Pertussis 91399 Given 10/05/2008 Tdap - Tetanus/Diptheria/Acellular Pertussis 55407 Given 10/05/2008 Influenza Virus 3Yrs & Over 67322 Given 11/27/2007 Zoster (Zostavax) 50397 Given 11/27/2007 Zoster (Zostavax) 10878 Given 10/29/2006 Influenza Virus 3Yrs & Over 45472 Given 10/29/2006 Influenza Virus 3Yrs & Over Vital Signs Date Vital Result Comment 10/30/2019 2:09pm Height 66 inches 5'6" Weight 189.25 lb Heart Rate 78 /min BP Systolic Sitting 138 mmHg BP Diastolic Sitting 76 mmHg Body Temperature 97.6 F O2 % BldC Oximetry 98 % BMI (Body Mass Index) 30.5 kg/m2 05/13/2019 12:25pm Weight 189.38 lb Heart Rate 86 /min BP Systolic 152 mmHg BP Diastolic 100 mmHg O2 % BldC Oximetry 97 % Results Description No Information Available Procedures Date Code Description Status 05/06/2018 [id number] Mammogram Completed 08/03/2016 [id number] Mammogram Completed 07/27/2015 [id number] Mammogram Completed 11/22/2014 [id number] Bone Mineral Density Test Completed 11/22/2014 [id number] Mammogram Completed 11/16/2013 [id number] Mammogram Completed 11/14/2012 [id number] Mammogram Completed 07/03/2011 [id number] Colonoscopy Completed 06/06/2011 [id number] Bone Mineral Density Test Completed 06/06/2011 [id number] Mammogram Completed 01/17/2010 [id number] Mammogram Completed 12/29/2007 [id number] Bone Mineral Density Test Completed 12/29/2007 [id number] Mammogram Completed 02/24/2002 [id number] Diabetic Retinal Eye Exam Completed Medical Devices Description No Information Available Encounters Type Date Location Provider Dx Diagnosis Office Visit 05/13/2019 [facility] Deb J47.1 Bronchiectasis with 11:[facility] (acute) exacerbation [facility] G47.33 Obstructive sleep apnea (adult) (pediatric) Assessments Date Code Description Provider 10/30/2019 I10 Essential (primary) hypertension Elyse Sagastume NAbel 10/30/2019 J47.1 Bronchiectasis with (acute) exacerbation Elyse Sagastume N.P. 05/13/2019 J47.1 Bronchiectasis with (acute) exacerbation Deb Cole NP 05/13/2019 G47.33 Obstructive sleep apnea (adult) (pediatric) Deb Cole NP Plan of Treatment Future Appointment(s):04/29/2020 1:00 pm - Elyse Sagastume N.PStephany at [facility] Internal Medicine - [facility]04/22/2020 1:30 pm - Delilah Correia MD at [facility] Nbvnxnxzlbj84/29 /2019 - Elyse Sagastume N.PStephanyI10 Essential (primary) hypertensionComments:For your high blood pressure: Continue with your current medication. I would like you to monitor your blood pressure at home. If your readings at home are consistently higher than 140/90, please call the office.J47.1 Bronchiectasis with (acute) exacerbationNew Medication:Levaquin 500 mg - 1 by mouth daily for 10 daysPrednisone 5 mg - 4 tablets by mouth for 4 days 3 tablets by mouth for 4 days 2 tablets by mouth for4 days 1 tablet by mouth for 4 daysBenzonatate 200 mg - one by mouth three times daily as needed for coughComments:For your bronchitis I have prescribed Levaquin 500 mg, take 1 tablet daily for 10 days.I have prescribed a course of Prednisone 10 mg.Take 4 tablets for 4 days, 3 tablets for 4 days, 2 tablets for 4 days, 1 tablet for 4 days.For your cough I prescribed Benzonatate 200 mg.You may take this every 8 hours as needed.If your symptoms do not gradually improve, please contact the office. Functional Status Description No Information Available Mental Status Description No Information Available Referrals Description No Information Available
[2019-11-22 17:18] VITALS: BP 161/77
--- NOTE | 2019-11-22 17:49 | UC ---
Respiratory Complaint HPI - HPI Summary HPI Summary: patient is on antibiotics inhaler and prednisone for her acute exacerbation of her chronic lung disease----she states her breathing is getting worse--and she has pain in he right upper lobe and posterior lung pain---recent travel on a plane from [place] - History of Current Complaint Chief Complaint: UCRespiratory Stated Complaint: POSS BRONCHITIS Time Seen by Provider: 11/22/19 17:44 Hx Obtained From: Patient ?: No Onset/Duration: Gradual Onset, Lasting Weeks - 2, Still Present Timing: Constant Pain Intensity: 4 Pain Scale Used: 0-10 Numeric Character: Cough: Nonproductive Aggravating Factors: Deep Breaths, Recumbent Position Alleviating Factors: Nothing Associated Signs And Symptoms: Positive: Dyspnea, Fever - subjective, Pleuritic Chest Pain, URI - Allergies/Home Medications Allergies/Adverse Reactions: Allergies Allergy/AdvReac Type Severity Reaction Status Date / Time Penicillins Allergy Unknown Verified 11/22/19 17:24 Reaction Details tetracycline Allergy Unknown Verified 11/22/19 17:24 Reaction Details Home Medications: Home Medications Albuterol HFA INHALER* [Ventolin HFA Inhaler*] 2 puff INH Q4HR PRN 11/22/19 [ History Confirmed 11/22/19] Aspirin 650 mg PO ONCE PRN 11/22/19 [History Confirmed 11/22/19] Escitalopram Oxalate [Lexapro] 1 tab PO DAILY 11/22/19 [History Confirmed ] PMH/Surg Hx/FS Hx/Imm Hx Previously Healthy: Yes Cardiovascular History: Hypertension Respiratory History: COPD, Bronchitis Psychological History: Anxiety Other History Of: Negative For: Anticoagulant Therapy - Surgical History Surgical History: Yes Surgery Procedure, Year, and Place: RT ROTATOR CUFF REPAIR 2001 OR 2002, LT HUMERUS RODDING 2001 OR 2002, HYSTERECTOMY 1985, 1985 COLON RESECTION FROM ENDOMETRIOSIS,cataract, bilateral eyelid liposuction, breast reduction 2013 - Family History Known Family History: Positive: Hypertension, Respiratory Disease - Social History Occupation: Retired Lives: With Family Alcohol Use: Rare Substance Use Type: None Smoking Status (MU): Never Smoked Tobacco - Immunization History Most Recent Influenza Vaccination: fall 2014 Most Recent Tetanus Shot: up to date Most Recent Pneumonia Vaccination: up to date Review of Systems All Other Systems Reviewed And Are Negative: Yes Constitutional: Positive: Fever, Chills, Fatigue Skin: Positive: Negative Eyes: Positive: Negative ENT: Positive: Negative Respiratory: Positive: Shortness Of Breath, Cough Cardiovascular: Positive: Chest Pain - right upper posterior Gastrointestinal: Positive: Negative Genitourinary: Positive: Negative Motor: Positive: Negative Neurovascular: Positive: Negative Musculoskeletal: Positive: Negative Neurological: Positive: Negative Psychological: Positive: Negative Is Patient Immunocompromised?: No Physical Exam Triage Information Reviewed: Yes Appearance: No Pain Distress, Well-Nourished, Ill-Appearing - mild Vital Signs: Initial Vital Signs Temp 97.9 F 11/22/19 17:13 Pulse 102 11/22/19 17:13 Resp 16 11/22/19 17:13 BP 161/77 11/22/19 17:13 Pulse Ox 97 11/22/19 17:13 Vital Signs Reviewed: Yes Eye Exam: Normal Eyes: Positive: Conjunctiva Clear ENT Exam: Normal ENT: Positive: Normal ENT inspection, Hearing grossly normal, Pharynx normal, TMs normal, Uvula midline. Negative: Nasal congestion, Tonsillar swelling, Trismus, Muffled voice, Hoarse voice, Dental tenderness, Sinus tenderness Dental Exam: Normal Neck exam: Normal Neck: Positive: Supple, Nontender, No Lymphadenopathy Respiratory Exam: Normal Respiratory: Positive: Chest non-tender, Lungs clear, Normal breath sounds, No respiratory distress, No accessory muscle use Cardiovascular Exam: Normal Cardiovascular: Positive: No Murmur, Brisk Capillary Refill, Tachycardia Musculoskeletal Exam: Normal Musculoskeletal: Positive: Strength Intact, ROM Intact, No Edema Neurological Exam: Normal Neurological: Positive: Alert, Muscle Tone Normal Psychological Exam: Normal Skin Exam: Normal Respiratory Course/Dx - Course Course Of Treatment: to [facility] for further assessment of pain and shortness of breath - Differential Dx/Diagnosis Provider Diagnosis: Increasing shortness of breath Discharge ED - Sign-Out/Discharge Documenting (check all that apply): Patient Departure All imaging exams completed and their final reports reviewed: No Studies - Discharge Plan Condition: Fair Disposition: HOME-RECOMMEND TO ED Patient Education Materials: Shortness of Breath (ED) Referrals: Maranda Powell MD [Primary Care Provider] - Additional Instructions: Please go directly to the hospital for further assessment - Billing Disposition and Condition Condition: FAIR Disposition: Home-Recommend to ED
== END 2019-11-22 18:15 | disposition home health service (06) ==
LOC: UCEAST 17:07
DX: J40 Bronchitis, not specified as acute or chronic (principal); J44.9 Chronic obstructive pulmonary disease, unspecified; R06.02 Shortness of breath; I10 Essential (primary) hypertension; F41.9 Anxiety disorder, unspecified; Z88.0 Allergy status to penicillin; Z88.1 Allergy status to other antibiotic agents; Z79.52 Long term (current) use of systemic steroids; Z79.82 Long term (current) use of aspirin; Z79.899 Other long term (current) drug therapy; E78.00 Pure hypercholesterolemia, unspecified; K21.9 Gastro-esophageal reflux disease without esophagitis; Z85.828 Personal history of other malignant neoplasm of skin
CPT/HCPCS: 99212; G0463

== ENCOUNTER 2019-11-22 18:45 | Emergency (ER) | payer MEDICARE, BC ==
[2019-11-22 20:34] LABS: ABS Lymphocytes 1.3 10^3/ul (1.0-4.8); ABS Monocytes 0.5 10^3/ul (0-0.8); ABS Neutrophils 8.8 10^3/ul (1.5-7.7); Eosinophil % 0.1 %; Hematocrit 42 % (35-47); Lymphocyte % 12.2 %; Mean Corpuscular HGB Conc 36 g/dL (31-36); Mean Corpuscular Hemoglobin 29 pg (27-31); Mean Corpuscular Volume 83 fL (80-97); Mean Platelet Volume 8.2 fL (7.4-10.4); Platelet Count 291 10^3/uL (150-450); Red Blood Count 5.11 10^6 /uL (3.70-4.87); Red Cell Distribution Width 14 % (10-15); White Blood Count 10.7 10^3/uL (3.5-10.8)
[2019-11-22 20:50] LABS: Albumin 4.2 g/dL (3.2-5.2); Albumin/Globulin Ratio 1.6 (1-3); BUN/Creatinine Ratio 18.6 (8-20); Calcium 9.1 mg/dL (8.6-10.3); EGFR African American 63.9 (>60); EGFR Non-African American 52.8 (>60); Globulin 2.7 g/dL (2-4); Total Bilirubin 0.3 mg/dL (0.2-1.0); Total Protein 6.9 g/dL (6.4-8.9)
[2019-11-22 21:02] LABS: Potassium 3.2 mmol/L (3.5-5.0)
--- NOTE | 2019-11-22 21:21 | ED ---
Respiratory - HPI Summary HPI Summary: Patient is a 74 y/o F w/ Hx of broncheolectosis and PNA who presents to [facility] with complaints of pain at her right shoulder and right upper chest, productive cough, congestion, and SOB with exertion. Patient states that Sx have been present over the past few days. She notes that she has had similar Sx in the past with PNA at her right upper lung. Patient has been taking Levofloxacin and Prednisone without resolution of Sx. She finished her antibiotic course today, 11/22/19, and is still taking Prednisone. Patient is concerned about the abnormally persistent nature of this episode of Sx. Her pain is characterized as a "breathing pain". She states that her pain feels deeper than her chest wall and is worsened with deep breaths. Cough has been productive of green phlegm, no blood in phlegm noted. Patient travelled to [place] by plane last week. Patient's friend, who is present in the room, states that the patient has been fatigued since this flight. No light-headedness or dizziness is noted. PCP is Dr. Powell. On triage, pain is rated 4/10. Home medications and allergies are reviewed. - History of Current Complaint Chief Complaint: EDUpperRespComplaint Stated Complaint: CHEST COLD PER PT Time Seen by Provider: 11/22/19 21:09 Hx Obtained From: Patient Onset/Duration: Still Present Timing: Constant Current Severity: Moderate Pain Intensity: 4 Character: Cough (Productive) Sputum Color: Green Aggravating Factor(s): Nothing Alleviating Factor(s): Nothing Associated Signs and Symptoms: SOB - with exertion, Pleuritic Chest Pain - right upper, worse with breathing - Allergy/Home Medications Allergies/Adverse Reactions: Allergies Allergy/AdvReac Type Severity Reaction Status Date / Time ciprofloxacin [From Cipro] Allergy Unknown Verified 11/22/19 22:40 Reaction Details Penicillins Allergy Unknown Verified 11/22/19 17:24 Reaction Details tetracycline Allergy Unknown Verified 11/22/19 17:24 Reaction Details Home Medications: Home Medications Depakote ER 500 mg PO BEDTIME 11/22/19 [History Confirmed 11/22/19] Estrace VAG CM (NF) 1 applic VAGINAL WEEKLY 11/22/19 [History Confirmed 11/22/19 ] Fish Oil (NF) 1,200 mg PO DAILY 11/22/19 [History Confirmed 11/22/19] Klor Con ER TAB 10 MEQ* 20 meq PO BID 11/22/19 [History Confirmed 11/22/19] Losartan Potassium 1 tab PO DAILY 11/22/19 [History Confirmed 11/22/19] Multivitamin 1 tab PO DAILY 11/22/19 [History Confirmed 11/22/19] Otezla 30 mg PO BID 11/22/19 [History Confirmed 11/22/19] Protonix TAB* 40 mg PO DAILY 11/22/19 [History Confirmed 11/22/19] Singulair 10 MG TAB* 1 tab PO DAILY 11/22/19 [History Confirmed 11/22/19] Spironolactone TAB* 25 mg PO DAILY 11/22/19 [History Confirmed 11/22/19] Vitamin D TAB* 2,000 i.u. PO DAILY 11/22/19 [History Confirmed 11/22/19] Xanax TAB* 0.25 mg PO TID PRN 11/22/19 [History Confirmed 11/22/19] PMH/Surg Hx/FS Hx/Imm Hx Endocrine/Hematology History: Denies: Hx Anticoagulant Therapy, Hx Diabetes Cardiovascular History: Reports: Hx Hypercholesterolemia, Hx Hypertension - CONTROLLED BY MEDS, Other Cardiovascular Problems/Disorders - PNEUMONIA Denies: Hx Angina, Hx Pacemaker/ICD Respiratory History: Reports: Hx Asthma, Hx Chronic Obstructive Pulmonary Disease (COPD), Hx Pneumonia - recurrent, Other Respiratory Problems/Disorders - HX OF PNEUMONIA NUMEROUS TIMES, NONE IN 10+ YEARS AGO GI History: Reports: Hx Gastroesophageal Reflux Disease History: Reports: Other Problems/Disorders - HISTORY OF UTI'S Denies: Hx Renal Disease Musculoskeletal History: Reports: Hx Arthritis - SPINE, Hx Bursitis Sensory History: Reports: Hx Contacts or Glasses - reading Denies: Hx Hearing Aid Opthamlomology History: Reports: Hx Contacts or Glasses - reading Neurological History: Reports: Hx Headaches, Hx Migraine, 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 Psychiatric History: Reports: Hx Anxiety, Hx Depression Denies: Hx Panic Disorder - Cancer History Cancer Type, Location and Year: SKIN CANCER Hx Chemotherapy: No Hx Radiation Therapy: No - Surgical History Surgery Procedure, Year, and Place: RT ROTATOR CUFF REPAIR 2001 OR 2002, LT HUMERUS RODDING 2001 OR 2002, HYSTERECTOMY 1985, 1985 COLON RESECTION FROM ENDOMETRIOSIS,cataract, bilateral eyelid liposuction, breast reduction 2014 Hx Anesthesia Reactions: Yes - N/V Infectious Disease History: No Infectious Disease History: Denies: Hx Clostridium Difficile, Hx Hepatitis, Hx Human Immunodeficiency Virus (HIV), Hx of Known/Suspected MRSA, Hx Shingles, Hx Tuberculosis, Hx Known/ Suspected VRE, Hx Known/Suspected VRSA, History Other Infectious Disease, Traveled Outside the [place] in Last 30 Days - Family History Known Family History: Positive: Hypertension, Respiratory Disease - Social History Alcohol Use: Rare Hx Substance Use: No Substance Use Type: Reports: None Hx Tobacco Use: No Smoking Status (MU): Never Smoked Tobacco Review of Systems Positive: Fatigue Positive: Chest Pain - pleuritic, right upper Respiratory: Other - positive - congestion Positive: Shortness Of Breath, Cough Musculoskeletal: Other - positive - right shoulder pain Neurological: Other - negative - light-headedness and dizziness All Other Systems Reviewed And Are Negative: Yes Physical Exam - Summary Physical Exam Summary: Appearance: Well-appearing, Well-nourished, lying in bed comfortably Skin: Warm, dry, no obvious rash Eyes: sclera anicteric, no conjunctival pallor ENT: mucous membranes moist, pharynx appears normal Neck: Supple, nontender Respiratory: Clear to auscultation, no signs of respiratory distress Cardiovascular: Normal S1, S2. No murmurs. Normal distal pulses in tibial and radial bilaterally. Abdomen: Soft, nontender, normal active bowel sounds present Musculoskeletal: Normal, Strength/ROM Intact Neurological: A&Ox3, awake and alert, mentation is normal, speech is fluent and appropriate Psychiatric: affect is normal, does not appear anxious or depressed Triage Information Reviewed: Yes Vital Signs On Initial Exam: Initial Vitals Temp Pulse Resp BP Pulse Ox 98.4 F 99 18 167/80 96 11/22/19 18:56 11/22/19 18:56 11/22/19 18:56 11/22/19 18:56 11/22/19 18:56 Vital Signs Reviewed: Yes Procedures - Sedation Patient Received Moderate/Deep Sedation with Procedure: No Diagnostics - Vital Signs Vital Signs Temp Pulse Resp BP Pulse Ox 11/22/19 18:56 98.4 F 99 18 167/80 96 - Laboratory Lab Results: Lab Results 11/22/19 11/22/19 Range/Units 20:16 20:24 WBC 10.7 (3.5-10.8) 10^3/uL RBC 5.11 H (3.70-4.87) 10^6 /uL Hgb 15.0 (12.0-16.0) g/dL Hct 42 (35-47) % MCV 83 (80-97) fL MCH 29 (27-31) pg MCHC 36 (31-36) g/dL RDW 14 (10-15) % Plt Count 291 (150-450) 10^3/uL MPV 8.2 (7.4-10.4) fL Neut % (Auto) 82.5 % Lymph % (Auto) 12.2 % [place] % (Auto) 5.0 % Eos % (Auto) 0.1 % Baso % (Auto) 0.2 % Absolute Neuts (auto) 8.8 H (1.5-7.7) 10^3/ul Absolute Lymphs (auto) 1.3 (1.0-4.8) 10^3/ul Absolute Monos (auto) 0.5 (0-0.8) 10^3/ul Absolute Eos (auto) 0.0 (0-0.6) 10^3/ul Absolute Basos (auto) 0.0 (0-0.2) 10^3/ul Absolute Nucleated RBC 0.0 10^3/ul Nucleated RBC % 0.0 Sodium 136 (135-145) mmol/L Potassium 3.2 L (3.5-5.0) mmol/L Chloride 98 L (101-111) mmol/L Carbon Dioxide 26 (22-32) mmol/L Anion Gap 12 H (2-11) mmol/L BUN 19 (6-24) mg/dL Creatinine 1.02 H (0.51-0.95) mg/dL Est GFR ( Amer) 63.9 (>60) Est GFR (Non-Af Amer) 52.8 (>60) BUN/Creatinine Ratio 18.6 (8-20) Glucose 220 H (70-100) mg/dL Calcium 9.1 (8.6-10.3) mg/dL Total Bilirubin 0.30 (0.2-1.0) mg/dL AST 10 L (13-39) U/L ALT 10 (7-52) U/L Alkaline Phosphatase 66 (34-104) U/L Troponin I 0.00 (<0.03) ng/mL Total Protein 6.9 (6.4-8.9) g/dL Albumin 4.2 (3.2-5.2) g/dL Globulin 2.7 (2-4) g/dL Albumin/Globulin Ratio 1.6 (1-3) Result Diagrams: 11/22/19 20:24 11/22/19 20:16 Lab Statement: Any lab studies that have been ordered have been reviewed, and results considered in the medical decision making process. - CT CTA CHEST CT Interpretation Completed By: Radiologist Summary of CT Findings: IMPRESSION: 1. No visible acute pulmonary embolism. 2. No aortic dissection. THIS REPORT WAS REVIEWED BY ED PHYSICIAN. - EKG 2130 Cardiac Rate: NL - rate of 81 BPM EKG Rhythm: Sinus Rhythm Summary of EKG Findings: EKG shows NSR at 81 BPM, P waves, QRS complex, and T waves are within normal limits, T waves and intervals are normal, no ischemic changes, no STEMI. ED physician has reviewed and interpreted this EKG. Disposition - Course Course Of Treatment: Patient is a 74 y/o F w/ Hx of broncheolectosis and PNA who presents to [facility] with complaints of pain at her right shoulder and right upper chest, productive cough, congestion, and SOB with exertion. Patient states that Sx have been present over the past few days. She notes that she has had similar Sx in the past with PNA at her right upper lung. Patient has been taking Levofloxacin and Prednisone without resolution of Sx. She finished her antibiotic course today, 11/22/19, and is still taking Prednisone. Patient is concerned about the abnormally persistent nature of this episode of Sx. Her pain is characterized as a "breathing pain". She states that her pain feels deeper than her chest wall and is worsened with deep breaths. Cough has been productive of green phlegm, no blood in phlegm noted. Patient travelled to [place] by plane last week. Patient's friend, who is present in the room , states that the patient has been fatigued since this flight. No light- headedness or dizziness is noted. EKG shows NSR at 81 BPM, P waves, QRS complex , and T waves are within normal limits, T waves and intervals are normal, no ischemic changes, no STEMI. Bloodwork was obtained and within normal limits with exception of RBC 5.11, absolute neuts 8.8, potassium 3.2, chloride 98, anion gap 12, creatinine 1.02, glucose 220, AST 10. CTA CHEST IMPRESSION: 1. No visible acute pulmonary embolism. 2. No aortic dissection. Patient was discharged to home with prescription of Levofloxacin. She will follow up with PCP. - Diagnoses Provider Diagnoses: Bronchitis, Bronchiectasis Discharge ED - Sign-Out/Discharge Documenting (check all that apply): Patient Departure - discharge - Discharge Plan Condition: Good Disposition: HOME Prescriptions: Levofloxacin TAB* [Levaquin TAB*] 500 mg PO DAILY #7 tab Patient Education Materials: Upper Respiratory Infection (DC), Bronchiectasis ( ED) Referrals: Maranda Powell MD [Primary Care Provider] - Additional Instructions: Your CT scan looked good, no sign of a blood clot in the lung or pneumonia. I would recommend continuing the antibiotic for another week but most likely this will just need some time to heal. - Billing Disposition and Condition Condition: GOOD Disposition: Home - Attestation Statements Document Initiated by Marielos: Yes Documenting Scribe: JIM COLBY Provider For Whom Marielos is Documenting (Include Credential): FELIPE BRANDT MD Scribe Attestation: IJIM, scribed for FELIPE BRANDT MD on 11/24/19 at 0146. Scribe Documentation Reviewed: Yes Provider Attestation: The documentation as recorded by the JIM ovalle accurately reflects the service I personally performed and the decisions made by me, FELIPE BRANDT MD Status of Scribe Document: Viewed
[2019-11-22] MEDS ORDERED: Iodixanol* (CONTRAST) 320 MG/ML 100 ML SDV IV ONE (21:28)
[2019-11-22 23:30] VITALS: BP 137/91
== END 2019-11-22 23:25 | disposition home or self-care (01) ==
LOC: ED 18:45
DX: J40 Bronchitis, not specified as acute or chronic (principal); E78.00 Pure hypercholesterolemia, unspecified; I10 Essential (primary) hypertension; J44.9 Chronic obstructive pulmonary disease, unspecified; K21.9 Gastro-esophageal reflux disease without esophagitis; F41.9 Anxiety disorder, unspecified; F32.9 Major depressive disorder, single episode, unspecified; Z85.828 Personal history of other malignant neoplasm of skin; Z90.710 Acquired absence of both cervix and uterus; Z79.899 Other long term (current) drug therapy; Z88.0 Allergy status to penicillin; Z88.1 Allergy status to other antibiotic agents
CPT/HCPCS: 36415; 71046; 71275; 80053; 84484; 85025; 87040; 87070; 87205; 93005; 99283; Q9967

== ENCOUNTER 2019-11-29 11:18 | Emergency (ER) | payer MEDICARE, BC ==
[2019-11-29 11:48] VITALS: BP 153/71
--- NOTE | 2019-11-29 12:08 | UC ---
Respiratory Complaint HPI - HPI Summary HPI Summary: was seen at ed on saturday put on ABX Levo for chest congestion / cough/ Was getting better, today last day of ABX but now feeling worse . she is not sure what to do. denies sob or chest pain or fever. - History of Current Complaint Chief Complaint: UCGeneralIllness Stated Complaint: cough, AND CHEST CONGESTION Time Seen by Provider: 11/29/19 12:00 Hx Obtained From: Patient Pain Intensity: 3 Pain Scale Used: 0-10 Numeric Character: Cough: Nonproductive Associated Signs And Symptoms: Negative: Dyspnea, Fever, Edema - Allergies/Home Medications Allergies/Adverse Reactions: Allergies Allergy/AdvReac Type Severity Reaction Status Date / Time ciprofloxacin [From Cipro] Allergy Unknown Verified 11/29/19 11:55 Reaction Details Penicillins Allergy Unknown Verified 11/29/19 11:55 Reaction Details tetracycline Allergy Unknown Verified 11/29/19 11:55 Reaction Details PMH/Surg Hx/FS Hx/Imm Hx Previously Healthy: Yes Cardiovascular History: Cardiac Disease Respiratory History: Asthma Other History Of: Negative For: Anticoagulant Therapy - Surgical History Surgical History: Yes Surgery Procedure, Year, and Place: RT ROTATOR CUFF REPAIR 2001 OR 2002, LT HUMERUS RODDING 2001 OR 2002, HYSTERECTOMY 1985, 1985 COLON RESECTION FROM ENDOMETRIOSIS,cataract, bilateral eyelid liposuction, breast reduction 2013 - Family History Known Family History: Positive: Hypertension, Respiratory Disease - Social History Alcohol Use: Rare Substance Use Type: None Smoking Status (MU): Never Smoked Tobacco - Immunization History Most Recent Influenza Vaccination: fall 2014 Most Recent Tetanus Shot: up to date Most Recent Pneumonia Vaccination: up to date Review of Systems All Other Systems Reviewed And Are Negative: Yes Constitutional: Negative: Fever, Fatigue Skin: Negative: Rash ENT: Negative: Sinus Congestion Respiratory: Positive: Cough. Negative: Shortness Of Breath Gastrointestinal: Negative: Nausea Musculoskeletal: Negative: Edema Neurological: Negative: Headache, Weakness Physical Exam Triage Information Reviewed: Yes Appearance: Well-Appearing Vital Signs: Initial Vital Signs Temp 97.7 F 11/29/19 11:43 Pulse 94 11/29/19 11:43 Resp 19 11/29/19 11:43 BP 153/71 11/29/19 11:43 Pulse Ox 99 11/29/19 11:43 Vital Signs Reviewed: Yes Eyes: Positive: Conjunctiva Clear ENT: Positive: Pharynx normal, TMs normal, Uvula midline Neck: Positive: Supple, Nontender, No Lymphadenopathy Respiratory: Positive: Lungs clear Cardiovascular Exam: Normal Neurological: Positive: Alert Skin: Negative: Rashes Diagnostics - Radiology No standard instances Radiology Interpretation Completed By: Radiologist Summary of Radiographic Findings: negative Respiratory Course/Dx - Course Course Of Treatment: Continued cough s/p levo antibx rx. Lung exam unremarkable and no LE edema. Likely viral bronchitis vs. post nasal drip. both viral etiology and we discussed this during visit. vitals are WNL,CXR unremarkable. Advised to remain hydrated and to rest and that this is self limiting. if worsening symptoms she must return. - Differential Dx/Diagnosis Differential Diagnosis/HQI/PQRI: Bronchitis, CHF, Sinusitis Provider Diagnosis: Viral bronchitis Discharge ED - Sign-Out/Discharge Documenting (check all that apply): Patient Departure All imaging exams completed and their final reports reviewed: Yes - Discharge Plan Condition: Good Disposition: HOME Prescriptions: Benzonatate CAP* [Tessalon 100 MG CAP*] 100 mg PO TID PRN 5 Days #15 cap PRN Reason: Cough Patient Education Materials: Acute Bronchitis (ED) Referrals: Maranda Powell MD [Primary Care Provider] - Additional Instructions: This appears to be viral bronchitis. It is self limiting and will resolve soon. If you have shortness of breath please go to the ER. - Billing Disposition and Condition Condition: GOOD Disposition: Home - Attestation Statements Provider Attestation: Per institutional requirements, I have reviewed the chart, however, I was not consulted specifically or made aware of this patient by the midlevel provider. I did not personally evaluate, interact with , or disposition this patient.
== END 2019-11-29 13:15 | disposition home or self-care (01) ==
LOC: UCEAST 11:18
DX: J20.8 Acute bronchitis due to other specified organisms (principal); J45.909 Unspecified asthma, uncomplicated; Z88.0 Allergy status to penicillin; Z88.1 Allergy status to other antibiotic agents
CPT/HCPCS: 71046; 99212; G0463